=== PATIENT | female | born 1990 | race Caucasian/White ===

== ENCOUNTER 2016-11-27 09:40 | Emergency (ER) | payer MEDICAID ==
[~2016-11-27] VITALS: Ht 154.9 cm; Wt 49.9 kg
[~2016-11-27 09:40] MED LIST: ABILIFY10 MG; BACTRIM DS 8001 TA1 PO; CIPRO 500MG TA500 MG PO; CITALOPRAM HYDR40 MG PO; CLARITIN 10MG T10 MG PO; ESSENTIAL DAIL1 EACH PO; GABAPENTIN 400400 M1 PO; GRALISE600 M1 PO; HYDROCODONE-APA1 TA1 PO; HYDROCODONE1 TABLET PO; IRON TABLETS325 MG PO; MACROBID 100MG100 M1 PO; MOTRIN 400MG.400 MG PO; NAPROSYN 500MG500 MG PO; NOMEDS *; PERCOCET 5/3251 EACH PO; PHENERGAN 25MG.25 M1 PO; PRENATAL PLUS1 TA1 PO; PROZAC 20MG CAP20 MG PO; RANITIDINE HCL150 MG PO; ROBAXIN-750750 MG PO; TRAZADONE HYDR100 MG PO; TYLENOL ES500 M1 PO; TYLENOL ES500 MG PO; TYLENOL325 MG PO; VISTARIL25 MG PO; ZITHROMAX Z-PA250 M2 PO
[2016-11-27 10:02] LABS: URINE BILIRUBIN - DIPSTICK NEGATIVE (NEG); URINE BLOOD NEGATIVE (NEG)
--- NOTE | 2016-11-27 10:12 | Emergency Room Report ---
History of Present Illness Time Seen by MD Cope Presenting Problem in Triage Pt arrived:Walked Presenting Problem:PT REPORTS INTERMITTENT PAIN ON R SIDE OF UPPER ABD THAT BEGAN APPROX 1 WEEK AGO. PT REPORTS PAIN HAS BEEN ACHING AND CONSTANT IN NATURE SINCE WAKING UP THIS MORNING. 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 N Clinical Suspician of Infection? N Mental Status: 1 - Regular (Normal Baseline) Sepsis Risk:Low Sepsis Risk Have you (or family members/close friends) recently traveled outside the [place]? N If Yes, where/when: Have you had exposure to infectious disease within the past month? N TB? Other? Specify: Source patient, RN notes reviewed Exam Limitations no limitations Comment Intermittent RUQ and RLQ pain for about 1 week but worse over the past 24 hours. No fever. Achy pain with no UT symptoms andno nausea, vomiting or diarrhea. She is a who has had a BTL Cardiac Chest Pain Chest pain indicative of cardiac No ALLERGIES Coded Allergies: ENVIRONMENTAL ALLERGENS (Mild, TAPE-RASH 04/30/16) TAPE GIVES PATIENT A RASH Penicillins (04/30/16) butorphanol (From STADOL) (causes behavioral changes in pt 04/30/16) latex (04/30/16) Home Medications Reported Medications No Known Home Medications History Medical History General CAD? No Angina: No OR: No Hypertension? No Hyperlipidemia? No CHF? No DVT? No PE? No COPD? No Asthma? No Anemia? No GERD? No Gastric ulcers? No GI Bleed? No Hernia? No Thyroid Problems? No Hypothyroidism? No CVA? No Seizures? No Diabetes? No Insulin Dependent: No Insulin Pump: No Home FSBS? No Renal Insuffiency? No End Stage Renal Disease? No UTI? Yes Stones? No BPH? No GB Disease: No Nephritic Syndrome? No Asplenia? No Hepatitis? No Sickle Cell Disease? No Arthritis? No Migraines? No Cataracts? No Glaucoma? No MRSA? No HIV? No TB? No Anxiety? No Depression? No Cancer? No More? 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 Physical Exam Vital Signs Vital Signs Date Time Temp Pulse Resp B/P Pulse O2 O2 Flow FiO2 Ox Delivery Rate 11/27 1015 84 20 100/60 99 11/27 1012 20 11/27 0948 98.0 86 18 105/73 98 General Appearance normal appearance, WD/WN, no apparent distress Respiratory Status No: respiratory distress. 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 No Results/Orders Laboratory Tests 11/27/16 1005: Sodium 143, Potassium 4.3, Chloride 108 H, Carbon Dioxide 27, BUN 11, Creatinine 0.8, Estimated Creat Clear 85, Estimated GFR (MDRD) 88, Glucose 84, Calcium 8.5, Total Bilirubin 0.3, AST 8 L, ALT 15, Alkaline Phosphatase 72, Total Protein 6.9, Albumin 3.2 L, Globulin 3.7 H, Albumin/Globulin Ratio 0.9 L, Amylase 62, Lipase 117, WBC 10.7, RBC 4.05 L, Hgb 13.3, Hct 39.1, MCV 96.4, RDW 12.3, Plt Count 278, MPV 6.1 L, Gran % 73.8, Gran # 7.9 H, Lymphocytes % 17.6, Monocytes % 6.5, Eosinophils % 1.8, Basophils % 0.3, Lymphocytes # 1.9, Monocytes # 0.7, Eosinophils # 0.2, Basophils # 0.0, PUBS MCHC 34.1, MCH 32.8 H 11/27/16 0953: Urine Color YELLOW, Urine Appearance SL CLOUDY, Urine pH 6.0, Ur Specific [place] 1.025, Urine Protein NEGATIVE, Urine Ketones NEGATIVE, Urine Blood NEGATIVE, Urine Nitrate NEGATIVE, Urine Bilirubin NEGATIVE, Urine Urobilinogen 0.2, Ur Leukocyte Esterase 2+ H, Urine WBC 10-20, Ur Squamous Epith Cells 10-20 , Urine Bacteria 4+, Urine Mucus 4+, Urine Glucose NEGATIVE Current Medication Orders Sig/Kodak Start time Last Medication Dose Route Stop Time Status Admin Levofloxacin/Dextrose 100 ML ONCE ONE 11/27 1100 CKDr IV 11/27 1159 Levofloxacin/Dextrose 100 ML .STK-MED ONE 11/27 1050 DC IV Sodium Chloride 10 ML PRN PRN 11/27 1030 AC IV 11/28 1016 Ketorolac 30 MG ONCE ONE 11/27 1015 DC 11/27 Tromethamine IV 11/27 1016 1012 Ondansetron HCl 4 MG ONCE ONE 11/27 1015 DC 11/27 IV 11/27 1016 1012 Sodium Chloride 1,000 ML .Q1H1M 11/27 1015 AC 11/27 IV 11/27 1115 1012 Sodium Chloride 10 ML PRN PRN 11/27 1015 AC IV 11/28 1007 Sodium Chloride 1,000 ML .STK-MED ONE 11/27 1009 DC IV Ketorolac 0 .STK-MED ONE 11/27 1008 DC Tromethamine .ROUTE Ondansetron HCl 0 .STK-MED ONE 11/27 1008 DC .ROUTE Orders Procedure Date/time Status IV SALINE LOCK 11/27 1016 Active ABD ACUTE(MUL VIEWS) 11/27 1012 Active LIPASE 11/27 1012 Complete CBC WITH AUTO DIFF 11/27 1012 Complete CHEM 12 PROFILE 11/27 1012 Complete AMYLASE 11/27 1012 Complete URINALYSIS/COMPLETE 11/27 0954 Complete URINE 11/27 0954 Complete CULTURE, URINE 11/27 0953 Active Departure Departure Time of Disposition 1050 Disposition DC Home or Self Care(routine) Clinical Impression Primary Impression: Cystitis without hematuria Secondary Impressions: Abdominal pain Qualifiers: Abdominal location: right lower quadrant Qualified Code: R10.31 - Right lower quadrant pain Condition STABLE Referrals Espinoza Rayo MD (Family): 2 Days-Call Office Patient Instructions DI for Urinary Tract Infection (UTI) Additional Instructions Use medicine for Urinary tract infection but if abdominal pain not better this afternoon, return to the ED to get a CT to rule out appendicitis this afternoon Discharge Counseling Counseled pt/family regarding diagnosis, test results, medications/RX, home care, follow up needs Prescriptions Current Visit Scripts Ciprofloxacin HCl (Cipro 500MG TAB) 500 MG PO BID #20 TAB ED Critical Care Critical Care No If Critical Care minutes are documented, the time involved in the performance of seperately reportable procedures was not counted toward critical care time documented. I directly delivered medical care to this critically ill and/or injured patient. Timely evaluation and treatment was necessary to address the significant organ system(s) dysfunction present in this patient. at [id number]
[2016-11-27 10:18] LABS: HEMOGLOBIN 13.3 g/dL (12.2-16.2); LYMPH # 1.9 K/mm3 (0.7-4.5); LYMPH % 17.6 % (10-50.0)
[2016-11-27] MEDS ORDERED: CIPRO 500MG TA500 MG PO (10:53)
[2016-11-27 12:19] VITALS: BP 103/55
--- NOTE | 2016-11-27 17:44 | RADIOLOGY REPORT PS360 ---
ABD ACUTE(MUL VIEWS) Ordering Physician: Nini Magana MD Patient Age: 26 years: Female HISTORY: abdominal pain Right-sided abdominal pain chest to hip pain 1 week no known recent trauma. TECHNIQUE: Upright chest with flat and upright views of abdomen. FINDINGS Chest. No active disease. Heart jeff and mediastinal structures satisfactory.. Ribs unremarkable. Flat and upright views of abdomen demonstrate generous stool at the right colon. Prominent stool also is seen at the splenic flexure and proximal descending colon with generous gas transverse colon. Moderate stool in rectosigmoid. Findings may reflect mild constipation but no significant bowel dilatation or obstruction. Minimal small bowel gas. No organomegaly. Bilateral tubal ligation clips at pelvis. IMPRESSION: No acute findings in the abdomen or pelvis. Generous stool right colon and splenic flexure region reflect mild constipation
--- OUTSIDE RECORDS SUMMARY | 2016-11-28 04:15 | External Medical Summary Rpt ---
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 CARE/DAY SERV 25 FOUNDATIO MINUTES N SBSQ 08475 [place] [address] MEDICAL DANNIE CARE/DAY SERV 25 FOUNDATIO MINUTES N SBSQ 73700 [place] [address] MEDICAL LISSETTE CARE/DAY SERV 25 FOUNDATIO MINUTES N INITIAL 02441 [place] [address] MEDICAL DANNIE CARE/DAY SERV 70 FOUNDATIO MINUTES N SBSQ 24411 [place] [address] MEDICAL LISSETTE CARE/DAY SERV 25 FOUNDATIO MINUTES N DUP-SCAN 91193 [place] ENDEAN XTR VEINS 4 MEDICAL JERSON COMPLETE SERV FOUNDATIO BILATERAL N STUDY SBSQ 10519 [facility] 4 MEDICAL CHR CARE/DAY SERV 15 FOUNDATIO MINUTES N [address]BS[address]23 [facility] 4 MEDICAL CHR CARE/DAY SERV 15 FOUNDATIO MINUTES N RADEX 39083 [place] GERONIMO ABDOMEN 1 4 MEDICAL SCO SERV ANTEROPOS FOUNDATIO TERIOR N VIEW RADIOLOGI 48501 [place] MITCHELL C 4 MEDICAL MONICA EXAMINATI SERV ON CHEST FOUNDATIO SINGLE N VIEW FRONTAL SWALLOWIN 33230 [place] DISANTIS G FUNCJ 4 MEDICAL JOHN W/CINERAD SERV IOGRAPY/V FOUNDATIO IDRADIOG N RADIOLOGI 43343 [place] CASTALIA MADDY C 4 MEDICAL EXAMINATI SERV ON CHEST FOUNDATIO SINGLE N VIEW FRONTAL SBSQ 30385 [facility] 4 MEDICAL CHR CARE/DAY SERV 25 FOUNDATIO MINUTES N SBSQ 27819 [facility] 4 MEDICAL CARE/DAY SERV 25 FOUNDATIO MINUTES N RADEX 28317 [place] ALEIDA HAND 4 MEDICAL FRA MINIMUM 3 SERV VIEWS FOUNDATIO N SBSQ 67924 [facility] 4 MEDICAL CARE/DAY [place] [address] [place] [address] [place] HEBERT HEAD/BRAI 4 MEDICAL MADDY N W/O SERV CONTRAST FOUNDATIO MATERIAL N RADEX 42658 [place] SZABUNIO SPINE 4 MEDICAL MAR CERVICAL SERV 2 OR 3 FOUNDATIO VIEWS N RADIOLOGI 64873 [place] THIAGO SAYRA C 4 MEDICAL EXAMINATI SERV ON CHEST FOUNDATIO SINGLE N VIEW FRONTAL RADIOLOGI 51503 [facility] 4 MEDICAL AYA MAR EXAMINATI SERV ON CHEST FOUNDATIO SINGLE N VIEW FRONTAL SBSQ 37314 [facility] 4 MEDICAL CHR CARE/DAY SERV 25 FOUNDATIO MINUTES N RADIOLOGI 80558 [place] LINTON MADDY C 4 MEDICAL EXAMINATI SERV ON CHEST FOUNDATIO SINGLE N VIEW FRONTAL RADIOLOGI 80164 [place] MITCHELL C 4 MEDICAL MONICA EXAMINATI SERV ON CHEST [place] [address] [place] RASLAU CERVICAL 4 MEDICAL FLA SPINE W/O SERV CONTRAST FOUNDATIO MATERIAL N LEVEL III 25404 [facility] SURG 4 Y [facility] GROSS&MONICA ROSCOPIC EXAM ARTHRD 67914 [place] SMITH ANT 4 MEDICAL GRE INTERBODY SERV FOUNDATIO DECOMPRES N S CERVICAL BELW C2 ARTHRD 48899 [place] SMITH ANT 4 MEDICAL GRE INTERDY SERV CERVCL FOUNDATIO BELW C2 N EA ADDL NTRSPC ARTHRT 30726 [place] MANDIE KNE 4 MEDICAL BRETT W/EXPL SERV DRG/RMVL FOUNDATIO FB N ANESTHESI 56557 [place] LANDRUM A 4 MEDICAL DUN EXTENSIVE SERV SPINE & FOUNDATIO SPINAL N CORD ANTERIOR 79407 [place] [facility] INSTRUMEN 4 MEDICAL GRE TATION SERV 2-3 FOUNDATIO VERTEBRAL N SEGMENTS APPLICATI 95472 [place] SM[place] ON 4 MEDICAL GRE INTERVERT SERV EBRAL FOUNDATIO BIOMECHAN N ICAL DEVICE RADEX 88104 [place] SERENA SPINE 1 4 MEDICAL YFN VIEW SERV SPECIFY FOUNDATIO LEVEL N RADEX 12250 [place]O SPINE 1 4 MEDICAL ROGELIO VIEW SERV SPECIFY FOUNDATIO LEVEL N RADEX 97966 [place] MONTGOMER SPINE 1 4 MEDICAL Y JUS VIEW SERV SPECIFY FOUNDATIO LEVEL N SBSQ 33487 [facility] 4 MEDICAL ANT CARE/DAY SERV 35 FOUNDATIO MINUTES N RADEX 82383 [place] THIAGO SAYRA SPINE 4 MEDICAL CERVICAL SERV 2 OR 3 FOUNDATIO VIEWS N RADIOLOGI 80067 [place] MONTGOMER C 4 MEDICAL Y JUS EXAMINATI SERV ON KNEE [address] [place] [address] [place] AYOOB AND THORACIC 4 MEDICAL SPINE W/O SERV CONTRAST FOUNDATIO MATERIAL N RADIOLOGI 77331 [place] MONTGOMER C 4 MEDICAL Y JUS EXAMINATI SERV ON CHEST FOUNDATIO SINGLE N VIEW FRONTAL US CHEST 70929 [place] DONNIE REAL TIME 4 MEDICAL HERBIE W/IMAGE SERV DOCUMENTA FOUNDATIO TION N RADEX 39926 [place] MONTGOMER HAND 4 MEDICAL Y JUS MINIMUM 3 SERV VIEWS FOUNDATIO N RADIOLOGI 32952 [place] MONTGOMER C 4 MEDICAL Y JUS EXAMINATI SERV ON FEMUR FOUNDATIO 2 VIEWS N RADEX 01778 [place] MONTG[place] ANKLE 4 MEDICAL Y JUS COMPLETE SERV MINIMUM 3 FOUNDATIO VIEWS N RADEX 00709 [place] MONTGOMER FOOT 4 MEDICAL Y JUS COMPLETE SERV MINIMUM [address] LUMBAR 40528 [place] AYOOB AND SPINE 4 MEDICAL W/O SERV CONTRAST FOUNDATIO MATERIAL N MRI 86351 [place] FLORIN ELBERT SPINAL 4 MEDICAL CANAL SERV CERVICAL FOUNDATIO W/O N CONTRAST MATRL RADIOLOGI 63324 [place] MONTGOMER C 4 MEDICAL Y JUS EXAMINATI SERV ON PELVIS FOUNDATIO 1/2 N VIEWS RADIOLOGI 82960 [place] TERIGOMER C 4 MEDICAL Y JUS EXAMINATI SERV ON TIBIA FOUNDATIO & F[place] [address] [place] [address] [place] SULY ANGIOGRAP 4 MEDICAL MARIAH HY HEAD SERV W/CONTRAS [place]OUNDAT[place] [address] [place] AYOOB AND CERVICAL 4 MEDICAL SPINE W/O SERV CONTRAST FOUNDATIO MATERIAL N RADEX 93422 [place] TERIGOMER ELBOW 4 MEDICAL Y JUS COMPLETE SERV MINIMUM [address] [place] [address] [place] SULY ANGIOGRAP 4 MEDICAL MARIAH HY NECK SERV W/CONTRAS FOUNDAT[place] T/[place] [address] [place] AYOOB AND ANGIOGRAP 4 MEDICAL HY CHEST SERV W/CONTRAS FOUNDATIO T/NONCONT N RAST RADEX 45622 [place] KAELA HUMERUS 4 MEDICAL Y JUS MINIMUM 2 SERV VIEWS FOUNDATIO N RADEX 96815 [place] KAELA FOREARM 2 4 MEDICAL Y JUS VIEWS SERV FOUNDATIO N RADEX 37234 [place] MICKEYMER WRIST 4 MEDICAL Y JUS COMPLETE SERV MINIMUM 3 FOUNDATIO VIEWS N ECHO 49951 [place] DONNIE TRANSTHOR 4 MEDICAL HERBIE C R-T 2D SERV W/WO FOUNDATIO M-MODE N REC F-UP/[place] [address] [place] AYOOB AND ABDOMEN & 4 MEDICAL PELVIS SERV [place] [address] [place] DONNIE ABDOMINAL 4 MEDICAL HERBIE REAL SERV TIME FOUNDATIO W/IMAGE N LIMITED AMB [id number] AIR AIR SERVICE 4 METHODS METHODS CONVNTION [facility] AIR SRVC TRANSPORT [address] INITIAL 96825 [facility] 4 MEDICAL LISSETTE CARE/DAY SERV 70 FOUNDATIO MINUTES N REMOVAL 19570 MANJIT SARAVIA NON-BIODE 4 PILLO PILLO GRADABLE DRUG DELIVERY IMPLANT IADNA 36285 [facility]PT HL[facility] DEPT GONORRHOE LUPE LUPE AE AMPLIFIED PROBE TQ TDAP 25414 [facility] VACCINE 7 4 [facility] DISTRICT YRS/> IM HLTH DEPT HLTH DEPT LUPE LUPE CYTP 18971 [facility] CERV/VAG 4 [facility] AUTO THIN HLTH DEPT HLTH DEPT LAYER LUPE LUPE PREP MNL SCREEN IADNA 50188 [facility] CHLAMYDIA [facility] DEPT HLTH DEPT TRACHOMAT LUPE LUPE IS AMPLIFIED PROBE TQ CONTRACEP J7303 [facility] T SUPPLY 4 [facility] HORMONE HLTH DEPT HL DEPT CONTAININ LUPE LUPE G VAG RING EA IAADIADOO 32487 FIELD AMB FIELD AMB 4 STREPTOCO CCUS GROUP A INSJ 36827 MANJIT SARAVIA NON-BIODE 4 PILLO PILLO GRADABLE DRUG DELIVERY IMPLANT URINE 86988 MANJIT SARAVIA 4 PILLO PILLO TEST VISUAL COLOR CMPRSN METHS ETONOGEST J7307 MANJIT SARAVIA REL 4 PILLO PILLO CNTRACPT IMPL SYS INCL IMPL & SPL REPAIR OF 7569 [facility] OTHER 3 [facility] CURRENT INC INC OBSTETRIC LACERATIO N NEURAXIAL 59264 NIRMAL KINNEY LABOR 3 ELSA ELSA ANALG/ANE S PLND VAGINAL DELIVERY VAGINAL 00518 MANJIT SARAVIA DELIVERY 3 PILLO PILLO ONLY W/POSTPAR ALLAN CARE 17457 MANJIT SARAVIA NONSTRESS 3 PILLO PILLO TEST 41985 MANJIT SARAVIA NONSTRESS 3 PILLO PILLO TEST 77166 MANJIT SARAVIA NONSTRESS 3 PILLO PILLO TEST CUL BACT 06411 COMBINED COMBINED XCPT 3 PHYSICIAN PHYSICIAN URINE S LA S LA BLOOD/STO OL AEROBIC ISOL 52916 HARPEL HARPEL NONSTRESS 3 GREGOR GREGOR TEST 77264 MANJIT SARAVIA NONSTRESS 3 PILLO PILLO TEST INITIAL 29456 MANJIT SARAVIA OBSERVATI 3 PILLO PILLO ON CARE/DAY 70 MINUTES HOSPITAL G0378 [facility] OBSERVATI 3 [facility] ON INC INC SERVICE PER HOUR EVAL C/V 66861 [facility] AMNIOTIC 3 [facility] FLUID INC INC PROTEIN QUAL EA SPECIMEN FTL 29645 [facility] FIBRONECT 3 [facility] IN INC INC CERVICOVA G SECRETION S SEMI-MICHELE URNLS DIP 51744 [facility] 3 [facility] STICK/TAB INC INC LET REAGENT AUTO MICROSCOP Y 12623 [facility] S[facility] NONSTRESS 3 [place] [address] [facility] INFUSION 3 [facility] THERAPY/P INC INC ROPHYLAXI S /DX 1ST TO 1 HR INITIAL 64475 MANJIT SARAVIA OBSERVATI 3 PILLO PILLO ON CARE/DAY 50 MINUTES US PREG 53845 AWILDA AWILDA UTERUS 3 LUZ LUZ REAL TIME W/IMAGE DCMTN TRANSVAG 75259 SARAVIA SARAVIA NONSTRESS 3 PILLO PILLO TEST GLUCOSE 53941 [facility] TOLERANCE 3 [facility] TEST GTT INC INC 3 SPECIMENS URNLS DIP 38837 [facility] 3 [facility] STICK/TAB INC INC LET RGNT NON-AUTO W/O MICRSCP GLUCOSE 27707 [facility] TOLERANCE 3 [facility] EA ADDL INC INC BEYOND 3 SPECIMENS GLUCOSE 89297 [facility]OMEN'S [facility] TOLERANCE 3 HEALTH PILLO TEST GTT CLINIC OF 3 LISSETTE SPECIMENS 09667 WOMEN'S [facility]AV[facility] NONSTRESS 3 HEALTH PILLO TEST [place] 24250 MANJIT SARAVIA UTERUS 3 PILLO PILLO AFTER 1ST TRIMEST [place]STATION [place] PREG 20057 WOMEN'S SARAV[facility] UTERUS 3 HEALTH PILLO REAL TIME CLINIC OF W/IMAGE LISSETTE DCMTN TRANSVAG ANTIBODY 38684 COMBINED COMBINED CHLAMYDIA 3 PHYSICIAN PHYSICIAN S LA S LA CUL BACT 20980 COMBINED COMBINED XCPT 3 PHYSICIAN PHYSICIAN URINE S LA S LA BLOOD/STO OL AEROBIC ISOL URINE 89855 [facility] 3 [facility] TEST INC INC VISUAL COLOR CMPRSN METHS CULTURE 78793 [facility] BACTERIAL 3 [facility] INC INC QUANTTATI VE COLONY COUNT URINE CULTURE 78196 [facility] BCT 3 [facility] ISOL&PRSM INC INC PTV ID ISOLATE EA URINE URNLS DIP 08741 [facility] 3 [facility] STICK/TAB INC INC LET REAGENT AUTO MICROSCOP Y SUSCEPTIB 33568 [facility] LTY STDY 3 [facility] ANTIMICRB INC INC IAL MICRO/AGA R DILUTJ IAADIADOO 84402 MACK MACK 1 DON DON STREPTOCO CCUS GROUP A CONTRACEP S4993 [facility] TIVE 1 [facility] CONTROL TYMPANOME 75543 MEREDITH HARPER TRY 1 JACQUE JACQUE COMPRE 51125 MEREDITH HARPER AUDIOMETR 1 JACQUE JAC[place] [address] [facility] INFUSION 1 [facility] THERAPY INC INC PROPHYLAX IS/DX EA HOUR TONSILLEC 07266 CASTANEDA CASTANEDA JENNIFER 1 STALIN STALIN PRIMARY/S ECONDARY AGE 12/> LEVEL III 43858 [facility] [place] SURG 1 NANCI & ALEISHA PATHOLOGY DUBILIER GROSS&MONICA ROSCOPIC EXAM ANESTHESI 44451 [facility] 1 ANESTH INTRAORAL OF THE WITH BLUE BIOPSY NOS TONSILLEC 282 [facility] JENNIFER 1 [facility] WITHOUT INC INC ADENOIDEC JENNIFER GONADOTRO 16805 [facility] PIN 1 [facility] CHORIONIC INC INC QUALITATI VE BLOOD 64641 [facility] COUNT 1 [facility] HEMOGLOBI INC INC N BLOOD 04132 [facility] COUNT 1 [facility] HEMATOCRI INC INC T IAADIADOO 60348 MACK MACK 1 DON DON STREPTOCO CCUS GROUP A IAADIADOO 42255 MACK MACK 1 DON DON STREPTOCO CCUS GROUP A IADNA 86651 [facility] NEISSERIA 1 [facility] CENTER GONORRHOE AE AMPLIFIED PROBE TQ CONTRACEP S4993 [facility] TIVE 1 [facility] CONTROL URINE 64707 [facility] S[facility] 1 [facility] TEST CENTER CENTER VISUAL COLOR CMPRSN METHS IADNA 31220 [facility] CHLAMYDIA 1 [facility] C[facility] TRACHOMAT IS AMPLIFIED PROBE TQ SPHERE V2100 [facility] SCIF[facility] SINGLE 0 VISION ANG VISION PLANO +/- 4.00 PER LENS FITTING 51506 [facility] SPECTACLE 0 VISION ANG S XCPT APHAKIA MONOFOCAL FRAMES V2020 [facility] PURCHASES 0 VISION ANG OPHTH 15970 [facility] MEDICAL 0 VISION ANG XM&EVAL COMPRE NEW PT 1/> VST THER 60955 TRESSA BUSTILLOS PROPH/DX 0 ELMER ELMER NJX IV PUSH SINGLE/1S T SBST/DRUG DEEP D9220 TRESSA BUSTILLOS SEDATION/ 0 ELMER ELMER GENERAL ANESTHESI A-1ST 30 MINUTES ANESTHESI 77042 TRESSA BUSTILLOS A 0 ELMER ELMER EXTERNAL MIDDLE & INNER EAR W/BX NOS IAADIADOO 64904 FREDERICK MACK, 0 DON R DON R STREPTOCO CCUS GROUP A DEEP D9220 TRESSA BUSTILLOS SEDATION/ 0 , JUAN MARTINEZ W W ANESTHESI A-1ST 30 MINUTES THER 91066 TRESSA BUSTILLOS PROPH/DX 0 , JUAN MARTINEZX IV W W PUSH SINGLE/1S T SBST/DRUG ORTHOPANT 94855 TRESSA BUSTILLOS OGRAM 0 , JUAN MARTINEZ W CONTRACEP S4993 [facility] PORRASON TIVE 0 [facility] CONTROL REPAIR OB 75.69 Matt Price NEC Encounters Encounter Start End Date Code Location Performer Type Date OFFICE 10847 Christine PAZ OUTPATIEN 7 7 NARESH DOMÍNGUEZ T VISIT PSC 15 MINUTES EMERGENCY 31182 [facility] V[facility] LIMITED/M INOR [facility] - 6 6 [facility] OUTPATIEN INC T EMERGENCY 45240 MARCUS PEÑA 6 6 PHYSICIAN [facility] V[facility]IT MODERATE SEVERITY OFFICE 11553 [facility] CASTANEDA OUTPATIEN 6 6 PHYSICIAN STALIN T VISIT S GROUP 10 MINUTES OFFICE 79561 [facility] CASTANEDA OUTPATIEN 6 6 PHYSICIAN STALIN T NEW 10 S GROUP MINUTES HOSPITAL [facility] - 6 6 [facility] OUTPATIEN [facility] T EMERGENCY 02859 MARCUS LAZO 6 6 [facility]YSICIAN [facility] T VISIT MODERATE SEVERITY EMERGENCY 64679 [facility] 6 6 [facility] T VISIT LOW/MODER SEVERITY HOSPITAL [facility] - 6 6 [facility] INPATIENT [facility] HOSPITAL [facility] - 6 6 [facility] OUTPATIEN INC T OFFICE 43331 [facility] SARAVIA OUTPATIEN 6 6 PHYSICIAN T VISIT S GROUP 15 MINUTES OFFICE 65975 [facility] SARAVIA OUTPATIEN 6 6 PHYSICIAN T VISIT S GROUP 15 MINUTES OFFICE 54206 [facility] SARAVIA OUTPATIEN 6 6 PHYSICIAN PILLO T VISIT S GROUP 15 MINUTES HOSPITAL [facility] - 6 6 [facility] OUTPATIEN INC T [facility]OSP[facility] - 6 6 [facility] OUTPATIEN INC [facility] - 6 6 [facility] OUTPATIEN INC [facility] - 6 6 [facility] OUTPATIEN INC T OFFICE 99945 [facility] SARAVIA OUTPATIEN 6 6 PHYSICIAN PILLO T VISIT S GROUP 15 MINUTES HOSPITAL [facility] - 6 6 [facility] OUTPATIEN INC T OFFICE 29234 [facility] SARAVIA OUTPATIEN 6 6 PHYSICIAN PILLO T VISIT S GROUP 15 MINUTES HOSPITAL [facility] - 5 5 [facility] OUTPATIEN INC T OFFICE 00041 A Vega PAZ MADDY OUTPATIEN 5 5 NARESH DOMÍNGUEZ T VISIT PSC 15 MINUTES [facility]OSPITAL [facility] - 5 5 [facility] OUTPATIEN INC T [facility] - 5 5 [facility] OUTPATIEN INC T OFFICE 23442 [facility] MANJIT OUTPATIEN 5 5 PHYSICIAN PILLO T VISIT S GROUP 15 MINUTES OFFICE 52973 A Vega CASTAÑEDA OUTPATIEN 5 5 NARESH DOMÍNGUEZ T VISIT PSC 15 MINUTES [facility] LUTHER - 5 5 [facility] OUTPATIEN INC T OFFICE 63410 [facility] SARAVIA OUTPATIEN 5 5 PHYSICIAN PILLO T VISIT S GROUP 15 MINUTES OFFICE 45947 A Vega CASTAÑEDA OUTPATIEN 5 5 NARESH DOMÍGNUEZ T VISIT PSC 15 MINUTES [facility]OSPITAL [facility] - 5 5 [facility] OUTPATIEN INC T OFFICE 41777 A Vega CASTAÑEDA OUTPATIEN 5 5 NARESH DOMÍNGUEZ T VISIT PSC 15 MINUTES EMERGENCY 19781 MARCUS TRINIDAD 5 5 PHYSICIAN DEPARTMEN S, [facility] T VISIT MODERATE SEVERITY OFFICE 47311 [facility] MANJIT FENTONPATIEN 5 5 PHYSICIAN PILLO T VISIT S GROUP 15 MINUTES OFFICE 88434 A Vega CASTAÑEDA OUTPATIEN 5 5 NARESH DOMÍNGUEZ T VISIT PSC 15 MINUTES OFFICE 61702 A Vega CASTAÑEDA OUTPATIEN 5 5 NARESH DOMÍNGUEZ T VISIT PSC 15 MINUTES [facility]OSPITAL [facility] - 5 5 [facility] OUTPATIEN INC T OFFICE 42197 A Vega PAZ MADDY OUTPATIEN 5 5 NARESH DOMÍNGUEZ T VISIT PSC 15 MINUTES OFFICE 31569 A Vega PAZ MADDY OUTPATIEN 5 5 NARESH DOMÍNGUEZ T VISIT PSC 15 MINUTES OFFICE 32656 A Vega PAZ MADDY OUTPATIEN 5 5 NARESH DOMÍNGUEZ T VISIT PSC 15 MINUTES OFFICE 24517 [facility] PETTEY OUTPATIEN 5 5 PHYSICIAN KRYSTA T NEW 30 S GROUP MINUTES OFFICE 40684 A Vega PAZ MADDY OUTPATIEN 5 5 NARESH DOMÍNGUEZ T VISIT PSC 15 MINUTES OFFICE 86735 A Vega DA SILVA OUTPATIEN 5 5 NARESH EVANS T VISIT PSC 15 MINUTES OFFICE 50760 A Vega PAZ MADDY OUTPATIEN 5 5 NARESH DOMÍNGUEZ T VISIT PSC 15 MINUTES OFFICE 58245 A Vega PAZ MADDY OUTPATIEN 5 5 NARESH DOMÍNGUEZ T VISIT PSC 15 MINUTES OFFICE 26057 A Vega PAZ MADDY OUTPATIEN 5 5 NARESH DOMÍNGUEZ T VISIT PSC 15 MINUTES OFFICE 92555 [facility] OUTPATIEN 5 5 Y T VISIT 5 HOSPITAL MINUTES [facility] 81425 [facility] MIKY OUTPATIEN 5 5 NURSE T VISIT PRACTITIO 40 NER GR MINUTES HOSPITAL [facility] - 5 5 [facility] OUTPATIEN INC T OFFICE 42174 A Vega PAZ MADDY OUTPATIEN 5 5 NARESH DOMÍNGUEZ T VISIT PSC 25 MINUTES HOSPITAL [facility] - 5 5 [facility] OUTPATIEN [facility] T OFFICE 81913 A Vega PAZ MADDY OUTPATIEN 5 5 NARESH DOMÍNGUEZ T VISIT PSC 15 MINUTES [facility] T VISIT SERV 15 FOUNDATIO MINUTES N OFFICE 82269 [facility] Y T VISIT 5 HOSPITAL MINUTES OFFICE 61821 [facility] [facility] 5 MEDICAL BRETT T VISIT SERV 15 FOUNDATIO MINUTES N HOSPITAL [facility]ERSIT [facility] 5 5 [facility] 93334 [facility] 5 5 Y T VISIT 5 HOSPITAL MINUTES EMERGENCY 42252 UNIVERSIT 5 5 Y [facility] T VISIT HIGH/URGE NT SEVERITY [facility]OSPITAL [facility] - [facility] 98802 NOHEMI MOHAMUD NICOLAS 5 5 MEDICAL DEPARTMEN SERV T VISIT FOUNDATIO MODERATE N SEVERITY HOSPITAL [facility] - [facility] 28996 [facility] MEDICAL SRI T VISIT SERV 15 FOUNDATIO MINUTES N OFFICE 42260 Christine PAZ [facility] 5 5 NARESH DOM[facility]NG[facility]Z T [facility]IT [facility] 15 [facility] UNIVERSIT [facility] 4 4 Y [facility] T OFFICE 60001 [facility] 4 4 Y T VISIT [facility] 15 [facility] CARDINAL - 4 4 [facility] EMERGENC[facility] 21104 NOHEMI DONNIE DEPT 4 4 MEDICAL HERBIE VISIT SERV HIGH FOUNDATIO SEVERITY& N THREAT FUNCJ OFFICE 45673 [facility]IS[facility] DEPT [facility] DEPT 10 LUPE LUPE MINUTES OFFICE 71257 MANJIT SARAVIA CONSULTAT 4 4 P[place]O PILLO ION NEW/ESTAB PATIENT 40 MIN PERIODIC 05227 [facility] EST HLTH DEPT HLTH DEPT PATIENT LUPE LUPE 18-39 YRS OFFICE 31086 FIELD AMB FIELD AMB OUTPATIEN 4 4 T VISIT 15 MINUTES OFFICE 22298 FIELD AMB FIELD AMB OUTPATIEN 4 4 T VISIT 15 MINUTES OFFICE 61243 MANJIT SARAVIA OUTPATIEN 4 4 PILLO PILLO T VISIT 15 MINUTES Inpatient IMP Luther Recinos MD (IN) 3 16:31 3 13:00 [facility] - 3 3 [facility] INPATIENT INC OFFICE 42848 MANJIT SARAVIA OUTPATIEN 3 3 PILLO PILLO T VISIT 15 MINUTES OFFICE 36266 [facility] SARAVIA OUTPATIEN 3 3 PILLO PILLO T VISIT 15 MINUTES OFFICE 15606 [facility] SARAVIA OUTPATIEN 3 3 P[place] P[place] T VISIT 15 MINUTES [facility]PITAL [facility] - 3 3 [facility] OUT[facility] INC T OFFICE 13935 [facility]AVIA SARAVIA OUTPATIEN 3 3 PILLO PILLO T VISIT 15 MINUTES OFFICE 70187 MANJIT GREYE OUTPATIEN 3 3 PILLO PILLO T VISIT 15 MINUTES OFFICE 95116 BONITA RECINOS OUTPATIEN 3 3 GREGOR GREGOR T VISIT 15 MINUTES OFFICE 43603 MANJIT GREYE OUTPATIEN 3 3 PILLO PILLO T VISIT 15 MINUTES Inpatient IMP Luther Saravia MD (IN) 3 07:45 3 09:31 [facility]HER - 3 3 [facility] OUTPATIEN INC T OFFICE 69556 MANJIT SARAVIA OUTPATIEN 3 3 PILLO PILLO T VISIT 15 MINUTES OFFICE 85566 MANJIT SARAVIA OUTPATIEN 3 3 PILLO PILLO T VISIT 15 MINUTES OFFICE 53728 FIELD AMB FIELD AMB OUTPATIEN 3 3 T VISIT 15 MINUTES OFFICE 56921 SARAVIA SARAVIA OUTPATIEN 3 3 PILLO PILLO T VISIT 15 MINUTES [facility]OSPITAL [facility] - 3 3 [facility] OUTPATIEN INC T OFFICE 71504 [facility] 3 3 HEALTH PILL[facility] T VISIT 5 CLINIC OF MINUTES [place] OFFICE 62452 FIELD AMB FIELD AMB OUTPATIEN 3 3 T VISIT 15 MINUTES OFFICE 90944 SARAVIA SARAVIA OUTPATIEN 3 3 PILLO PILLO T VISIT 15 MINUTES OFFICE 64085 SARAVIA SARAVIA OUTPATIEN 3 3 P[place] PILL[place] T VISIT 15 MINUTES OFFICE 97155 SARAVIA SARAVIA OUTPATIEN 3 3 P[facility] PILLO T VISIT 15 MINUTES OFFICE 31651 [facility] OUTPATIEN 3 3 HEALTH PILLO T VISIT CLINIC OF 15 [place]TE MINUTES Emergency DESIRAE STOUT (ER) 3 13:27 3 13:34 [facility] A EMERGENCY 28323 [place]AN STOUT 3 3 EMERGENCY JAM DEPARTMEN SERVICES T VISIT HIGH/URGE NT SEVERITY EMERGENCY 70429 [facility] 3 3 [facility] T VISIT LOW/MODER SEVERITY HOSPITAL [facility] - 3 3 [facility] OUTPATIEN INC T OFFICE 89754 [facility] OUTPATIEN 1 1 DON DON T VISIT 15 MINUTES OFFICE [id number] [facility] OUT[facility] 1 1 DON DON T VISIT 15 MINUTES OFFICE 73556 [facility] OUTALEAHEN 1 1 [facility] CENTER 10 MINUTES OFFICE 53772 [facility] OUT[facility]IEN 1 1 DON DON T VISIT 15 MINUTES EMERGENCY 16791 [facility] 1 1 [facility] T VISIT LOW/MODER SEVERITY [facility] - [facility] T EMERGENCY [id number] [place] 1 1 EMERGENC[facility] DEPARTMEN SERVICES T VISIT HIGH/URGE NT SEVERITY [facility]OSP[facility] - 1 1 [facility] - [facility] 1 [facility] T OFFICE 85468 LEONEL CASTANEDA OUTPATIEN 1 1 STAL[facility] MILAN 45 MINUTES OFFICE 20877 [facility] MACK OUTPATIEN 1 1 DON DON T VISIT 15 MINUTES OFFICE 88710 [facility] MACK OUTPATIEN 1 1 DON DON T VISIT 15 MINUTES FORMERLY [facility] [address] [facility] SLOAN PREVENTIV 1 1 [facility] CENTER PATIENT 12-17YRS OFFICE 16835 FREDERICK MACK, OUTPATIEN 0 0 DON R DON R T VISIT 15 MINUTES OFFICE 41386 FR[facility] MACK, OUTPATIEN 0 0 DON R DON R T VISIT 15 MINUTES OFFICE [id number] TRESSA BUSTILLOS OUTPATIEN 0 0 , JUAN MARTINEZ 10 W W MINUTES OFFICE 73840 [facility] MACK, OUTPATIEN 0 0 DON R DON R T VISIT 15 MINUTES OFFICE 25828 [facility] OUTPATIEN 0 0 [facility] C[facility] 10 MINUTES
--- OUTSIDE RECORDS SUMMARY | 2016-11-28 04:15 | External Medical Summary Rpt ---
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 VIEWS SBSQ 81263 [place] [address] MEDICAL JERSON CARE/DAY SERV 25 FOUNDATIO MINUTES N SBSQ 92488 [place] [address] MEDICAL JERSON CARE/DAY SERV 25 FOUNDATIO MINUTES N SBSQ 66469 [place] [address] MEDICAL NAN CARE/DAY SERV 25 FOUNDATIO MINUTES N SBSQ 27263 [place] [address] MEDICAL NAN CARE/DAY SERV 25 FOUNDATIO MINUTES N RADIOLOGI 56810 [facility] RADMANESH C 4 RADIOLOGY SHA EXAMINATI ON KNEE 1/2 VIEWS RADEX 39334 [facility] SPINE 4 RADIOLOGY III LOLIS CERVICAL 2 OR 3 VIEWS SBSQ 68453 [place] [address] MEDICAL JERSON CARE/DAY SERV 25 FOUNDATIO MINUTES N RADEX 16776 [facility] 4 MEDICAL Y JUS MINIMUM 3 SERV VIEWS FOUNDATIO N SBSQ 15[address] [facility] 4 MEDICAL ZANE CARE/DAY SERV 25 FOUNDATIO MINUTES N SBSQ 69509 [place] [address] MEDICAL AZNE CARE/DAY SERV 25 FOUNDATIO MINUTES N SBSQ 23053 [place] [address] MEDICAL NAN CARE/DAY SERV 25 FOUNDATIO MINUTES N SBSQ 51897 [facility] 4 MEDICAL NAN CARE/DAY SERV 25 FOUNDATIO MINUTES N SWALLOWIN 91876 [facility] [place] [facility] FUNCJ 4 RADIOLOGY LD IV ALL W/CINERAD IOGRAPY/V IDRADIOG SBSQ 92850 [place] [address] MEDICAL DANNIE CARE/DAY SERV 25 FOUNDATIO MINUTES N SBSQ 82274 [place] [address] MEDICAL DANNIE CARE/DAY SERV 25 FOUNDATIO MINUTES N SBSQ 45252 [place] [address] MEDICAL DANNIE CARE/DAY SERV 25 FOUNDATIO MINUTES N SBSQ 16318 [place] [address] MEDICAL DANNIE CARE/DAY SERV 25 FOUNDATIO MINUTES N SBSQ 84774 [place] [address] MEDICAL DANNIE CARE/DAY SERV 25 FOUNDATIO MINUTES N SBSQ 81823 [place] [address] MEDICAL DANNIE CARE/DAY SERV 25 FOUNDATIO MINUTES N SBSQ 30494 [place] [address] MEDICAL LISSETTE CARE/DAY SERV 25 FOUNDATIO MINUTES N INITIAL 73878 [place] [address] MEDICAL DANNIE CARE/DAY SERV 70 FOUNDATIO MINUTES N SBSQ 23575 [place] [address] MEDICAL LISSETTE CARE/DAY SERV 25 FOUNDATIO MINUTES N DUP-SCAN 52555 [place] ENDEAN XTR VEINS 4 MEDICAL JERSON COMPLETE SERV FOUNDATIO BILATERAL N STUDY SBSQ 77647 [facility] 4 MEDICAL CHR CARE/DAY SERV 15 FOUNDATIO MINUTES N SBSQ 25925 [facility] 4 MEDICAL CHR CARE/DAY SERV 15 FOUNDATIO MINUTES N RADEX 28025 [place] GERONIMO ABDOMEN 1 4 MEDICAL SCO SERV ANTEROPOS FOUNDATIO TERIOR N VIEW RADIOLOGI 50127 [place] MITCHELL C 4 MEDICAL MONICA EXAMINATI SERV ON CHEST FOUNDATIO SINGLE N VIEW FRONTAL SWALLOWIN 50973 [place] DISANTIS G FUNCJ 4 MEDICAL JOHN W/CINERAD SERV IOGRAPY/V FOUNDATIO IDRADIOG N RADIOLOGI 05408 [place] IRVING MADDY C 4 MEDICAL EXAMINATI SERV ON CHEST FOUNDATIO SINGLE N VIEW FRONTAL SBSQ 16788 [facility] 4 MEDICAL CHR CARE/DAY SERV 25 FOUNDATIO MINUTES N SBSQ 81660 [facility] 4 MEDICAL CARE/DAY SERV 25 FOUNDATIO MINUTES N RADEX 22244 [place] ALEIDA HAND 4 MEDICAL FRA MINIMUM 3 SERV VIEWS FOUNDATIO N SBSQ 69656 [facility] 4 MEDICAL CARE/DAY [place] [address] [place] [address] [place] HEBERT HEAD/BRAI 4 MEDICAL MADDY N W/O SERV CONTRAST FOUNDATIO MATERIAL N RADEX 83001 [place] SZABUNIO SPINE 4 MEDICAL MAR CERVICAL SERV 2 OR 3 FOUNDATIO VIEWS N RADIOLOGI 96232 [place] THIAGO SAYRA C 4 MEDICAL EXAMINATI SERV ON CHEST FOUNDATIO SINGLE N VIEW FRONTAL RADIOLOGI 83065 [place] [facility] 4 MEDICAL AYA MAR EXAMINATI SERV ON CHEST FOUNDATIO SINGLE N VIEW FRONTAL SBSQ 94919 [facility] 4 MEDICAL CHR CARE/DAY SERV 25 FOUNDATIO MINUTES N RADIOLOGI 53998 [place] LINTON MADDY C 4 MEDICAL EXAMINATI SERV ON CHEST FOUNDATIO SINGLE N VIEW FRONTAL RADIOLOGI 08246 [place] IMTCHELL C 4 MEDICAL MONICA EXAMINATI SERV ON CHE[place] [address] [place] RASLAU CERVICAL 4 MEDICAL FLA SPINE W/O SERV CONTRAST FOUNDATIO MATERIAL N LEVEL III 32997 [facility] SUR[facility] 4 Y OF JUL PATHOLOGY [facility] GROSS&MONICA ROSCOPIC EXAM ARTHRD 72719 [place] SMITH ANT 4 MEDICAL GRE INTERBODY SERV FOUNDATIO DECOMPRES N S CERVICAL BELW C2 ARTHRD 65404 [place] SMITH ANT 4 MEDICAL GRE INTERDY SERV CERVCL FOUNDATIO BELW C2 N EA ADDL NTRSPC ARTHRT 55218 [place] MANDIE KNE 4 MEDICAL BRETT W/EXPL SERV DRG/RMVL FOUNDATIO FB N ANESTHESI 82648 [place] LANDRUM A 4 MEDICAL DUN EXTENSIVE SERV SPINE & FOUNDATIO SPINAL N CORD ANTERIOR 21438 [place] SMITH INSTRUMEN 4 MEDICAL GRE TATION SERV 2-3 FOUNDATIO VERTEBRAL N SEGMENTS APPLICATI 23418 [place] SMITH ON 4 MEDICAL GRE INTERVERT SERV EBRAL FOUNDATIO BIOMECHAN N ICAL DEVICE RADEX 88337 [place] SERENA SPINE 1 4 MEDICAL YFN VIEW SERV SPECIFY FOUNDATIO LEVEL N RADEX 15066 [place] CHAYO SPINE 1 4 MEDICAL ROGELIO VIEW SERV SPECIFY FOUNDATIO LEVEL N RADEX 29765 [place] MONTGOMER SPINE 1 4 MEDICAL Y JUS VIEW SERV SPECIFY FOUNDATIO LEVEL N SBSQ 47450 [place] [facility] 4 MEDICAL ANT CARE/DAY SERV 35 FOUNDATIO MINUTES N RADEX 43266 [place] THIAGO SAYRA SPINE 4 MEDICAL CERVICAL SERV 2 OR 3 FOUNDATIO VIEWS N RADIOLOGI 60845 [place] MONTGOMER C 4 MEDICAL Y JUS EXAMINATI SERV ON KNEE [address] [place] [address] [place] AYOOB AND THORACIC 4 MEDICAL SPINE W/O SERV CONTRAST FOUNDATIO MATERIAL N RADIOLOGI 68628 [place] MONTGOMER C 4 MEDICAL Y JUS EXAMINATI SERV ON CHEST FOUNDATIO SINGLE N VIEW FRONTAL US CHEST 62234 [place] DONNIE REAL TIME 4 MEDICAL HERBIE W/IMAGE SERV DOCUMENTA FOUNDATIO TION N RADEX 83059 [place] MONTGOMER HAND 4 MEDICAL Y JUS MINIMUM 3 SERV VIEWS FOUNDATIO N RADIOLOGI 68780 [place] MONTGOMER C 4 MEDICAL Y JUS EXAMINATI SERV ON FEMUR FOUNDATIO 2 VIEWS N RADEX 17570 [place] MONTGOMER ANKLE 4 MEDICAL Y JUS COMPLETE SERV MINIMUM 3 FOUNDATIO VIEWS N RADEX 25918 [place] MONTGOMER FOOT 4 MEDICAL Y JUS COMPLETE SERV MINIMUM [address] LUMBAR 58554 [place] AYOOB AND SPINE 4 MEDICAL W/O SERV CONTRAST FOUNDATIO MATERIAL N MRI 65022 [place] FLORIN ELBERT SPINAL 4 MEDICAL CANAL SERV CERVICAL FOUNDATIO W/O N CONTRAST MATRL RADIOLOGI 74477 [place] MONTGOMER C 4 MEDICAL Y JUS EXAMINATI SERV ON PELVIS FOUNDATIO 1/2 N VIEWS RADIOLOGI 97894 [place] TERIGOMER C 4 MEDICAL Y JUS EXAMINATI SERV ON TIBIA FOUNDATIO & F[place] [address] [place] [address] [place] SULY ANGIOGRAP 4 MEDICAL MARIAH HY HEAD SERV W/CONTRAS FOUNDATIO T/[place] [address] [place] AYOOB AND CERVICAL 4 MEDICAL SPINE W/O SERV CONTRAST FOUNDATIO MATERIAL N RADEX 45614 [place] TERIGOMER ELBOW 4 MEDICAL Y JUS COMPLETE SERV MINIMUM [address] [place] [address] [place] SULY ANGIOGRAP 4 MEDICAL MARIAH HY NECK SERV W/CONTRAS FOUNDAT[place] T/[place] [address] [place] AYOOB AND ANGIOGRAP 4 MEDICAL HY CHEST SERV W/CONTRAS FOUNDATIO T/NONCONT N RAST RADEX 81091 [place] KAELA HUMERUS 4 MEDICAL Y JUS MINIMUM 2 SERV VIEWS FOUNDATIO N RADEX 09899 [place] KAELA FOREARM 2 4 MEDICAL Y JUS VIEWS SERV FOUNDATIO N RADEX 19803 [place] MICKEYMER WRIST 4 MEDICAL Y JUS COMPLETE SERV MINIMUM 3 FOUNDATIO VIEWS N ECHO 91640 [place] DONNIE TRANSTHOR 4 MEDICAL HERBIE C R-T 2D SERV W/WO FOUNDATIO M-MODE N REC F-UP/[place] [address] [place] AYOOB AND ABDOMEN & 4 MEDICAL PELVIS SERV [place] [address] [place] DONNIE ABDOMINAL 4 MEDICAL HERBIE REAL SERV TIME FOUNDATIO W/IMAGE N LIMITED AMB A0431 AIR AIR SERVICE 4 METHODS METHODS [facility]ION [facility] SRVC TRANSPORT [address] INITIAL 65001 [facility] 4 MEDICAL LISSETTE CARE/DAY SERV 70 FOUNDATIO MINUTES N REMOVAL 32277 MANJIT SARAVIA NON-BIODE 4 PILLO PILLO GRADABLE DRUG DELIVERY IMPLANT IADNA 35407 [facility] DE[facility] DEPT GONORRHOE LUPE LUPE AE AMPLIFIED PROBE TQ TDAP 89947 [facility] VACCINE 7 4 [facility] DISTRICT YRS/> IM HLTH DEPT HLTH DEPT LUPE LPUE CYTP 63224 [facility] CERV/VAG 4 [facility] AUTO THIN HLTH DEPT HLTH DEPT LAYER LUPE LUPE PREP MNL SCREEN IADNA 62835 [facility] CHLAMYDIA [facility] DEPT HLTH DEPT TRACHOMAT LUPE LUPE IS AMPLIFIED PROBE TQ CONTRACEP J7303 [facility] T SUPPLY 4 [facility] DISTRICT HORMONE HLTH DEPT HL DEPT CONTAININ LUPE LUPE G VAG RING EA IAADIADOO 92862 FIELD AMB FIELD AMB 4 STREPTOCO CCUS GROUP A INSJ 96888 MANJIT SARAVIA NON-BIODE 4 PILLO PILLO GRADABLE DRUG DELIVERY IMPLANT URINE 01489 MANJIT SARAVIA 4 PILLO PILLO TEST VISUAL COLOR CMPRSN METHS ETONOGEST J7307 MANJIT SARAVIA REL 4 PILLO PILLO CNTRACPT IMPL SYS INCL IMPL & SPL REPAIR OF 7569 [facility] OTHER 3 [facility] CURRENT INC INC OBSTETRIC LACERATIO N NEURAXIAL 62282 NIRMAL KINNEY LABOR 3 ELSA ELSA ANALG/ANE S PLND VAGINAL DELIVERY VAGINAL 58003 MANJIT SAR[facility]IA DELIVERY 3 PILLO PILLO ONLY W/POSTPAR ALLAN CARE 71659 MANJIT SARAVIA NONSTRESS 3 PILLO PILLO TEST 54217 MANJIT SARAVIA NONSTRESS 3 PILLO PILLO TEST 92604 MANJIT SARAVIA NONSTRESS 3 PILLO PILLO TEST CUL BACT 15921 COMBINED COMBINED XCPT 3 PHYSICIAN PHYSICIAN URINE S LA S LA BLOOD/STO OL AEROBIC ISOL 00276 HARPEL HARPEL NONSTRESS 3 GREGOR GREGOR TEST 20041 MANJIT SARAVIA NONSTRESS 3 PILLO PILLO TEST INITIAL 04222 MANJIT SARAVIA OBSERVATI 3 PILLO PILLO ON CARE/DAY 70 MINUTES HOSPITAL [id number] [facility] OBSERVATI 3 [facility] ON INC INC SERVICE PER HOUR EVAL C/V 43892 [facility] AMNIOTIC 3 [facility] FLUID INC INC PROTEIN QUAL EA SPECIMEN FTL 62294 [facility] FIBRONECT 3 [facility] IN INC INC CERVICOVA G SECRETION S SEMI-MICHELE URNLS DIP 68264 [facility] 3 [facility] STICK/TAB INC INC [place]CROS[place] Y 03350 [facility] S[facility] NONSTRESS 3 [place] [address] [facility] INFUSION 3 [facility] THERAPY/P INC INC ROPHYLAXI S /DX 1ST TO 1 HR INITIAL 36466 MANJIT SARAVIA OBSERVATI 3 PILLO PILLO ON CARE/DAY 50 MINUTES US PREG 74441 AWILDA AWILDA UTERUS 3 LUZ LUZ REAL TIME W/IMAGE DCMTN TRANSVAG 38381 SARAVIA SARAVIA NONSTRESS 3 PILLO PILLO TEST GLUCOSE 37771 [facility] TOLERANCE 3 [facility] TEST GTT INC INC 3 SPECIMENS URNLS DIP 28939 [facility] 3 [facility] STICK/TAB INC INC LET RGNT NON-AUTO W/O MICRSCP GLUCOSE 90966 [facility] TOLERANCE 3 [facility] EA ADDL INC INC BEYOND 3 SPECIMENS GLUCOSE 94786 [facility] TOLERANCE 3 HEALTH PILLO TEST GTT CLINIC OF 3 LISSETTE SPECIMENS 06621 [facility]EN'[facility] NONSTRESS 3 HEALTH PILLO TEST CLINIC OF LISSETTE [place] PREG 13523 MANJIT SARAVIA UTERUS 3 PILLO PILLO AFTER 1ST TRIMEST GESTATION US PREG 81152 WOMEN'S SAR[facility] UTERUS 3 HEALTH PILLO REAL TIME CLINIC OF W/IMAGE LISSETTE DCMTN TRANSVAG ANTIBODY 32457 COMBINED COMBINED CHLAMYDIA 3 PHYSICIAN PHYSICIAN S LA S LA CUL BACT 21061 COMBINED COMBINED XCPT 3 PHYSICIAN PHYSICIAN URINE S LA S LA BLOOD/STO OL AEROBIC ISOL URINE 80026 [facility] 3 [facility] TEST INC INC VISUAL COLOR CMPRSN METHS CULTURE 08411 [facility] BACTERIAL 3 [facility] INC INC QUANTTATI VE COLONY COUNT URINE CULTURE 30823 [facility] BCT 3 [facility] ISOL&PRSM INC INC PTV ID ISOLATE EA URINE URNLS DIP 20638 [facility] 3 [facility] STICK/TAB INC INC LET REAGENT AUTO MICROSCOP Y SUSCEPTIB 95444 [facility] LTY STDY 3 [facility] ANTIMICRB INC INC IAL MICRO/AGA R DILUTJ IAADIADOO 07848 MACK MACK 1 DON DON STREPTOCO CCUS GROUP A CONTRACEP S4993 [facility] TIVE 1 [facility] CONTROL TYMPANOME 06432 MEREDITH HARPER TRY 1 JACQUE JACQUE COMPRE 19003 MEREDITH HARPER AUDIOMETR 1 JACQUE JAC[place] [address] [facility] INFUSION 1 [facility] THERAPY INC INC PROPHYLAX IS/DX EA HOUR TONSILLEC 57215 CASTANEDA CASTANEDA JENNIFER 1 STALIN STALIN PRIMARY/S ECONDARY AGE 12/> LEVEL III 95454 [place] SURG 1 NANCI & ALEISHA PATHOLOGY DUBILIER GROSS&MONICA ROSCOPIC EXAM ANESTHESI 26183 [facility] 1 ANESTH INTRAORAL OF THE WITH BLUE BIOPSY NOS TONSILLEC 282 [facility] JENNIFER 1 [facility] WITHOUT INC INC ADENOIDEC JENNIFER GONADOTRO 90342 [facility] PIN 1 [facility] CHORIONIC INC INC QUALITATI VE BLOOD 99223 [facility] COUNT 1 [facility] HEMOGLOBI INC INC N BLOOD 42786 [facility] COUNT 1 [facility] HEMATOCRI INC INC T IAADIADOO 89029 MACK MACK 1 DON DON STREPTOCO CCUS GROUP A IAADIADOO 81416 MACK MACK 1 DON DON STREPTOCO CCUS GROUP A IADNA 10074 [facility] NEISSERIA 1 [facility] CENTER GONORRHOE AE AMPLIFIED PROBE TQ CONTRACEP S4993 [facility] TIVE 1 [facility] CONTROL URINE 44022 [facility] S[facility] 1 [facility] TEST C[facility] CENTER VISUAL COLOR CMPRSN METHS IADNA 42639 [facility] CHLAMYDIA 1 [facility] CENTER TRACHOMAT IS AMPLIFIED PROBE TQ SPHERE V2100 HOLLY SCIFRES SINGLE 0 VISION ANG VISION PLANO +/- 4.00 PER LENS FITTING 52155 [facility] SCIFRES SPECTACLE 0 VISION ANG S XCPT APHAKIA MONOFOCAL FRAMES V2020 [facility] SCIFRES PURCHASES 0 VISION ANG OPHTH 29466 [facility] SCIFRES MEDICAL 0 VISION ANG XM&EVAL COMPRE NEW PT 1/> VST THER 92944 TRESSA BUSTILLOS PROPH/DX 0 ELMER ELMER NJX IV PUSH SINGLE/1S T SBST/DRUG DEEP D9220 TRESSA BUSTILLOS SEDATION/ 0 ELMER ELMER GENERAL ANESTHESI A-1ST 30 MINUTES ANESTHESI 67731 TRESSA BUSTILLOS A 0 ELMER ELMER EXTERNAL MIDDLE & INNER EAR W/BX NOS IAADIADOO 05300 FREDERICK MACK, 0 DON R DON R STREPTOCO CCUS GROUP A DEEP D9220 TRESSA BUSTILLOS SEDATION/ 0 , JUAN MARTINEZ W W ANESTHESI A-1ST 30 MINUTES THER 04887 TRESSA BUSTILLOS PROPH/DX 0 , JUAN MARTINEZX IV W W PUSH SINGLE/1S T SBST/DRUG ORTHOPANT 31844 TRESSA BUSTILLOS OGRAM 0 , JUAN MARTINEZ W CONTRACEP S4993 [facility] PORRASON TIVE 0 [facility] CONTROL REPAIR OB 75.69 Matt Price NEC Encounters Encounter Start End Date Code Location Performer Type Date OFFICE 96261 Christine PAZ OUTPATIEN 7 7 NARESH DOMÍNGUEZ T VISIT PSC 15 MINUTES EMERGENCY 68697 [facility] V[facility]/M [facility] - 6 6 [facility] OUTPATIEN INC T EMERGENCY 77147 MARCUS PEÑA 6 6 [facility]IC[facility] MODERATE SEVERITY OFFICE 66411 [facility] CASTANEDA OUTPATIEN 6 6 PHYSICIAN STALIN T VISIT S GROUP 10 MINUTES OFFICE 70110 [facility] CASTANEDA OUTPATIEN 6 6 PHYSICIAN STALIN T NEW 10 S GROUP MINUTES HOSPITAL [facility] - 6 6 [facility] OUTPATIEN [facility] T EMERGENCY 97488 MARCUS LAZO 6 6 [facility]IC[facility] T VISIT MODERATE SEVERITY EMERGENCY 95608 [facility] 6 [facility] T VISIT LOW/MODER SEVERITY HOSPITAL [facility] - 6 6 [facility] INPATIENT [facility] - 6 6 [facility] OUTPATIEN INC T OFFICE 98446 [facility] SARAVIA OUTPATIEN 6 6 PHYSICIAN T VISIT S GROUP 15 MINUTES OFFICE 91368 [facility] SARAVIA OUTPATIEN 6 6 PHYSICIAN T VISIT S GROUP 15 MINUTES OFFICE 16230 [facility] SARAVIA OUTPATIEN 6 6 PHYSICIAN PILLO T VISIT S GROUP 15 MINUTES HOSPITAL [facility] 6 6 [facility] OUTPATIEN INC T [facility] 6 6 [facility] OUTPATIEN INC [facility] 6 6 [facility] OUTPATIEN INC [facility] 6 6 [facility] OUTPATIEN INC T OFFICE 82925 [facility] SARAVIA OUTPATIEN 6 6 PHYSICIAN PILLO T VISIT S GROUP 15 MINUTES HOSPITAL [facility] - 6 6 [facility] OUTPATIEN INC T OFFICE 92775 [facility] SARAVIA OUTPATIEN 6 6 PHYSICIAN PILLO T VISIT S GROUP 15 MINUTES HOSPITAL [facility] - 5 5 [facility] OUTPATIEN INC T OFFICE 35581 A Vega PAZ MADDY OUTPATIEN 5 5 NARESH DOMÍNGUEZ T VISIT PSC 15 MINUTES HOSPITAL [facility] 5 5 [facility] OUTPATIEN INC T [facility] 5 5 [facility] OUTPATIEN INC T OFFICE 77179 [facility] MANJIT OUTPATIEN 5 5 PHYSICIAN PILLO T VISIT S GROUP 15 MINUTES OFFICE 44077 A Vega CASTAÑEDA OUTPATIEN 5 5 NARESH DOMÍNGUEZ T VISIT PSC 15 MINUTES [facility] L[facility] - 5 5 [facility] OUTPATIEN INC T OFFICE 27849 [facility] SARAVIA OUTPATIEN 5 5 PHYSICIAN PILLO T VISIT S GROUP 15 MINUTES OFFICE 37446 A Vega CASTAÑEDA OUTPATIEN 5 5 NARESH DOMÍNGUEZ T VISIT PSC 15 MINUTES HOSPITAL [facility] - 5 5 [facility] OUTPATIEN INC T OFFICE 31614 A Vega CASTAÑEDA OUTPATIEN 5 5 NARESH DOMÍNGUEZ T VISIT PSC 15 MINUTES EMERGENCY 15821 MARCUS TRINIDAD 5 5 PHYSICIAN DEPARTMEN S, [facility] T VISIT MODERATE SEVERITY OFFICE 87416 [facility] MANJIT FENTONPATIEN 5 5 PHYSICIAN PILLO T VISIT S GROUP 15 MINUTES OFFICE 31154 A Vega CASTAÑEDA OUTPATIEN 5 5 NARESH DOMÍNGUEZ T VISIT PSC 15 MINUTES OFFICE 27575 A Vega CASTAÑEDA OUTPATIEN 5 5 NARESH DOMÍNGUEZ T VISIT PSC 15 MINUTES [facility]OSPITAL [facility] - 5 5 [facility] OUTPATIEN INC T OFFICE 71239 A Vega PAZ MADDY OUTPATIEN 5 5 NARESH DOMÍNGUEZ T VISIT PSC 15 MINUTES OFFICE 05449 A Vega PAZ MADDY OUTPATIEN 5 5 NARESH DOMÍNGUEZ T VISIT PSC 15 MINUTES OFFICE 83380 A Vega PAZ MADDY OUTPATIEN 5 5 NARESH DOMÍNGUEZ T VISIT PSC 15 MINUTES OFFICE 92759 [facility] PETTEY OUTPATIEN 5 5 PHYSICIAN KRYSTA T NEW 30 S GROUP MINUTES OFFICE 32376 A Vega PAZ MADDY OUTPATIEN 5 5 NARESH DOMÍNGUEZ T VISIT PSC 15 MINUTES OFFICE 69420 A Vega DA SILVA OUTPATIEN 5 5 NARESH EVANS T VISIT PSC 15 MINUTES OFFICE 92849 A Vega PAZ MADDY OUTPATIEN 5 5 NARESH DOMÍNGUEZ T VISIT PSC 15 MINUTES OFFICE 81296 A Vega PAZ MADDY OUTPATIEN 5 5 NARESH DOMÍNGUEZ T VISIT PSC 15 MINUTES OFFICE 34781 A Vega PAZ MADDY OUTPATIEN 5 5 NARESH DOMÍNGUEZ T VISIT PSC 15 MINUTES OFFICE 67523 UN[facility]ERSIT OUTPATIEN 5 5 Y T VISIT 5 HOSPITAL MINUTES [facility] 88089 [facility] OUTPATIEN 5 5 NURSE T VISIT PRACTITIO 40 NER GR MINUTES [facility] - [facility] 5 [facility] T OFFICE 65286 A Vega PAZ MADDY OUTPATIEN 5 5 NARESH DOMÍNGUEZ T VISIT PSC 25 MINUTES [facility] - 5 5 [facility] OUT[facility]EN [facility] T OFFICE 49191 A Vega PAZ MADDY OUTPATIEN 5 5 NARESH DOMÍNGUEZ T VISIT PSC 15 MINUTES [facility] 42862 [facility] MED[facility] GRE T VISIT SERV 15 FOUNDATIO MINUTES N OFFICE 05156 [facility] 5 5 Y T VISIT 5 HOSPITAL MINUTES OFFICE 40025 NO[facility]MI [facility]OCK[facility]OD [facility] 5 5 MEDICAL BRETT T VISIT SERV 15 FOUNDATIO MINUTES N HOSPITAL [facility] 5 5 [facility] 87037 [facility] 5 5 Y T [facility]ISIT 5 HOSPITAL MINUTES EMERGENCY 51830 [facility] 5 5 Y [facility] T VISIT HIGH/URGE NT SEVERITY [facility]OSPITAL [facility] 72359 NOHEMI MOHAMUD NICOLAS 5 5 MEDICAL DEPARTMEN SERV T VISIT FOUNDATIO MODERATE N SEVERITY [facility] 44728 [facility] MEDICAL SRI T VISIT SERV 15 FOUNDATIO MINUTES N OFFICE 37867 Christine PAZ [facility] 5 5 NARESH DOMÍNGUEZ T VISIT [facility] UNIVERS[facility] - 4 4 Y [facility] T OFFICE 91282 [facility] 4 4 Y T VISIT [facility] C[facility] - 4 4 [facility]IER INPATIENT REHABILIT ATION EMERGENCY 69406 NOHEMI DONNIE DEPT 4 4 MEDICAL HERBIE VISIT SERV HIGH FOUNDATIO SEVERITY& N THREAT FUNCJ OFFICE 51725 [facility] T VISIT [facility] DEPT [facility] DEPT 10 LUPE LUPE MINUTES OFFICE 47098 MANJIT SARAVIA CONSULTAT 4 4 PILLO PILLO ION NEW/ESTAB PATIENT 40 MIN PERIODIC 95519 [facility] MED EST HLTH DEPT HLTH DEPT PATIENT LUPE LUPE 18-39 YRS OFFICE 79528 FIELD AMB FIELD AMB OUTPATIEN 4 4 T VISIT 15 MINUTES OFFICE 01244 FIELD AMB FIELD AMB OUTPATIEN 4 4 T VISIT 15 MINUTES OFFICE 58099 MANJIT SARAVIA OUTPATIEN 4 4 PILLO PILLO T VISIT 15 MINUTES Inpatient IMP Luther Recinos MD (IN) 3 16:31 3 13:[address] [facility] LUTHER - 3 3 [facility] INPATIENT INC OFFICE 29034 MANJIT SARAVIA OUTPATIEN 3 3 PILLO PILLO T VISIT 15 MINUTES OFFICE 50949 SARAVIA SARAVIA OUTPATIEN 3 3 PILLO PILLO T VISIT 15 MINUTES OFFICE 95406 SARAVIA SARAVIA OUTPATIEN 3 3 PILLO PILLO T VISIT 15 MINUTES [facility]PITAL [facility] - [facility] 3 [facility] T OFFICE 64184 SARAVIA SARAVIA OUTPATIEN 3 3 PILLO PILLO T VISIT 15 MINUTES OFFICE 72475 MANJIT GREYE OUTPATIEN 3 3 PILLO PILLO T VISIT 15 MINUTES OFFICE 75856 BONITA RECINOS OUTPATIEN 3 3 GREGOR GREGOR T VISIT 15 MINUTES OFFICE 85582 MANJIT GREYE OUTPATIEN 3 3 PILLO PILLO T VISIT 15 MINUTES Inpatient IMP Luther Saravia MD (IN) 3 07:45 3 09:31 [facility] - 3 3 [facility] OUT[facility] T OFFICE 67165 MANJIT SARAVIA OUTPATIEN 3 3 PILLO PILLO T VISIT 15 MINUTES OFFICE 61280 MANJIT SARAVIA OUTPATIEN 3 3 PILLO PILLO T VISIT 15 MINUTES OFFICE 47523 FIELD AMB FIELD AMB OUTPATIEN 3 3 T VISIT 15 MINUTES OFFICE 76248 SARAVIA SARAVIA OUTPATIEN 3 3 PILLO PILLO T VISIT 15 MINUTES [facility]ITAL [facility] - 3 3 [facility] OUT[facility]IEN [facility] T OFFICE 22228 [facility] [facility] 3 3 [facility] T VISIT 5 [facility]INIC OF MINUTES [place] OFFICE [id number] FIELD AMB FIELD AMB OUTPATIEN 3 3 T VISIT 15 MINUTES OFFICE 99086 [facility] 3 3 [facility]O PILLO T VISIT 15 MINUTES OFFICE 94863 [facility] 3 3 [facility]O PILL[facility] T VISIT 15 MINUTES OFFICE 16425 [facility] 3 3 [facility]ILL[facility] T VISIT 15 MINUTES OFFICE 07249 [facility] 3 3 HEALTH [facility] T VISIT CLINIC OF 15 [place] MINUTES Emergency DESIRAE STOUT (ER) 3 13:27 3 13:34 [facility] A EMERGENCY 76649 [place] STOUT 3 3 EMERGENCY JAM DEPARTMEN SERVICES T VISIT HIGH/URGE NT SEVERITY EMERGENCY 01506 [facility] 3 3 [facility] DEPARTMEN INC T VISIT LOW/MODER SEVERITY HOSPITAL [facility] - 3 3 [facility] T OFFICE 79293 [facility] 1 1 DON DON T VISIT 15 MINUTES OFFICE 61990 [facility] 1 1 DON DON T VISIT 15 MINUTES OFFICE 18919 [facility] OUTALEAHEN 1 1 [facility] T VISIT CENTER CENTER 10 MINUTES OFFICE 88701 [facility] 1 1 DON DON T VISIT 15 MINUTES EMERGENCY 58711 [facility] 1 1 [facility] DEPARTMEN INC T VISIT LOW/MODER SEVERITY HOSPITAL [facility] - 1 1 [facility] OUTPATIEN INC T EMERGENCY 30786 [place] 1 1 EMERGENCY [facility] DEPARTMEN SERVICES T VISIT HIGH/URGE NT SEVERITY HOSPITAL [facility] - 1 1 [facility] T [facility] - 1 1 [facility] INC T OFFICE 96677 LEONEL CASTANEDA OUTPATIEN 1 1 STALIN MILAN 45 MINUTES OFFICE 61323 [facility] MACK OUTPATIEN 1 1 DON DON T VISIT 15 MINUTES OFFICE 34402 [facility] MACK OUTPATIEN 1 1 DON DON T VISIT 15 MINUTES [facility] 30603 [facility] SLOAN PREVENTIV 1 1 [employer] HEALTH E MED EST CENTER CENTER PATIENT 12-17YRS OFFICE 22890 FR[facility]ICK MACK, OUTPATIEN 0 0 DON R DON R T VISIT 15 MINUTES OFFICE 76262 [facility] MACK, OUTPATIEN 0 0 DON R DON R T VISIT 15 MINUTES OFFICE 80960 TRESSA BUSTILLOS OUTPATIEN 0 0 , JUAN MARTINEZ 10 W W MINUTES OFFICE 60738 [facility] MACK, OUTPATIEN 0 0 DON R DON R T VISIT 15 MINUTES OFFICE 42810 [facility] OUTPATIEN 0 0 [employer] HEALTH T VISIT CENTER CENTER 10 MINUTES
--- OUTSIDE RECORDS SUMMARY | 2016-11-28 04:21 | External Medical Summary Rpt ---
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 [facility] EIA TECH INC INC HIV-1&/HI V-2 SCR COLLECTIO 85862 [facility] N VENOUS 5 [facility] BLOOD INC INC VENIPUNCT URE OBSTETRIC 28381 [facility] S[facility] PANEL 5 [facility] INC INC COLLECTIO 94810 [facility] N 5 PHYSICIAN PHYSICIAN CAPILLARY S GROUP S GROUP BLOOD SPECIMEN URNLS DIP 62151 [facility] 5 [facility] STICK/TAB INC INC LET REAGENT AUTO MICROSCOP Y 98216 [facility] S[facility] NONSTRESS 5 [facility] TEST INC INC 15424 [facility] NONSTRESS 5 PHYSICIAN PILLO TEST S GROUP US PREG 03591 [place] AWILDA UTERUS 5 MEDICAL LUZ REAL TIME IMAGING W/[place] [address] [place] AWILDA 5 MEDICAL LUZ UTERUS IMAGING LIMITED ASS 1/> FETUSES US PREG 59195 [facility] UTERUS 5 [facility] W/DETAIL INC INC KO 1ST GESTATION US PREG 93104 [place] ALL UTERUS 5 MEDICAL AFTER 1ST IMAGING TRIMEST ASS 1/ [place] [address] [place] ALL 5 MEDICAL UTERUS IMAGING LIMITED ASS 1/> FETUSES LOCALIZE 46181 [facility] CEREBRAL 5 MEDICAL SEIZURE SERV CABLE/RAD FOUNDATIO IO N EEG/VIDEO OBSERVATI 17883 [facility] ON CARE 5 MEDICAL DISCHARGE SERV FOUNDATIO MANAGEMEN N T LOCALIZE 27761 [facility] CEREBRAL 5 MEDICAL SEIZURE SERV CABLE/RAD FOUNDATIO IO N EEG/VIDEO INITIAL 42442 [facility] OBSERVATI 5 MEDICAL ON SERV CARE/DAY FOUNDATIO 50 N MINUTES LOCALIZE 28676 [facility] CEREBRAL 5 MEDICAL SEIZURE SERV CABLE/RAD FOUNDATIO IO N EEG/VIDEO US PREG 44430 [place] AWILDA UTERUS 5 MEDICAL LUZ REAL TIME IMAGING W/IMAGE ASS DCMTN TRANSVAG IADNA 40822 [facility]ISS[facility] ER JR ANTHONY GONORRHOE AE AMPLIFIED PROBE TQ IADNA 69098 [facility] CHLAMYD[facility] ER JR ANTHONY TRACHOMAT IS AMPLIFIED PROBE TQ CYTP C/V 96597 [facility] AUTO THIN 5 LLC ER JR ANTHONY LYR PREPJ SCR MNL RESCR PHYS URINE 99049 Christine PAZ MADDY 5 NARESH DOMÍNGUEZ TEST PSC VISUAL COLOR CMPRSN METHS IAADIADOO 33907 A C KILPELA 5 NARESH DOMÍNGUEZ JEA STREPTOCO PSC CCUS GROUP A NEEDLE 07845 [facility] EMG EA 5 N EXTREMTY NEUROLOGY W/PARASPI NL AREA COMPLETE NERVE 07429 [facility] CONDUCTIO 5 N N STUDIES NEUROLOGY 5-6 STUDIES ELECTROEN 24145 [facility] CEPHALOGR 5 [facility] AM W/REC INC INC AWAKE&ASL EEP APPLICATI 20050 [facility] ON 5 [facility] MODALITY INC INC 1/> AREAS HOT/COLD PACKS THERAPEUT 00447 [facility] IC PX 1/> 5 [facility] AREAS INC INC EACH 15 MIN EXERCISES APPL 44277 [facility] MODALITY 5 [facility] 1/> AREAS INC INC ELEC STIMJ UNATTENDE D APPL 42843 [facility] MODALITY 5 [facility] 1/> AREAS INC INC ELEC STIMJ UNATTENDE D THERAPEUT 92265 [facility] IC PX 1/> 5 [facility] AREAS INC INC EACH 15 MIN EXERCISES MANUAL 59116 [facility] THERAPY 5 [facility] TQS 1/> INC INC REGIONS EACH 15 MINUTES APPLICATI 63715 [facility] ON 5 [facility] MODALITY INC INC 1/> AREAS HOT/COLD PACKS APPLICATI 13257 [facility] ON 5 [facility] MODALITY INC INC 1/> AREAS HOT/COLD PACKS MANUAL 22751 [facility] THERAPY 5 [facility] TQS 1/> INC INC REGIONS EACH 15 MINUTES THERAPEUT 44015 [facility] IC PX 1/> 5 [facility] AREAS INC INC EACH 15 MIN EXERCISES APPL 29668 [facility] MODALITY 5 [facility] 1/> AREAS INC INC ELEC STIMJ UNATTENDE D APPL 28923 [facility] S[facility] MODALITY 5 [facility] 1/> AREAS INC INC ELEC STIMJ UNATTENDE D THERAPEUT 84222 [facility] IC PX 1/> 5 [facility] AREAS INC INC EACH 15 MIN EXERCISES APPLICATI 20574 [facility] ON 5 [facility] MODALITY INC INC 1/> AREAS HOT/COLD PACKS PHYSICAL 45272 [facility] THERAPY 5 [facility] EVALUATIO INC INC N RADEX [facility] SPINE 5 Y Y CERVICAL [facility] 4 OR 5 VIEWS CERVICAL L0174 [facility]AR 5 BRACING, BRACING, SEMI-RIGI INC INC D FOAM THOR EXT PREFAB RADEX 07663 [facility] SPINE 5 MEDICAL MARIAH CERVICAL SERV 2 OR 3 FOUNDATIO VIEWS N RADEX 08319 [facility] 5 Y Y MINIMUM 3 HOSPITAL HOSPITAL VIEWS SBSQ 66225 [facility] 4 MEDICAL JERSON CARE/DAY SERV 25 FOUNDATIO MINUTES N SBSQ 37921 [facility] 4 MEDICAL JERSON CARE/DAY SERV 25 FOUNDATIO MINUTES N SBSQ 68156 [facility] 4 MEDICAL NAN CARE/DAY SERV 25 FOUNDATIO MINUTES N RADIOLOGI 60436 [facility] CLAYESH C 4 RADIOLOGY SHA EXAMINATI ON KNEE 1/2 VIEWS SBSQ 18613 [facility] 4 MEDICAL NAN CARE/DAY SERV 25 FOUNDATIO MINUTES N RADEX 91062 [facility] JUAN PABLO SPINE 4 RADIOLOGY III LOLIS CERVICAL 2 OR 3 VIEWS SBSQ 71063 [facility] 4 MEDICAL JERSON CARE/DAY SERV 25 FOUNDATIO MINUTES N RADEX 67452 [facility] 4 MEDICAL Y JUS MINIMUM 3 SERV VIEWS FOUNDATIO N SBSQ 27069 [facility] 4 MEDICAL ZANE CARE/DAY SERV 25 FOUNDATIO MINUTES N SBSQ [address]2750 [place] [address] MEDICAL ZANE CARE/DAY SERV 25 FOUNDATIO MINUTES N SBSQ 86602 [facility] 4 MEDICAL NAN CARE/DAY SERV 25 FOUNDATIO MINUTES N SBSQ 03162 [facility] 4 MEDICAL NAN CARE/DAY SERV 25 FOUNDATIO MINUTES N SWALLOWIN 34656 [facility] WESTERFILucretia G FUNC 4 RADIOLOGY LD IV ALL W/CINERAD IOGRAPY/V IDRADIOG SBSQ 99677 [place] [address] MEDICAL DANNIE CARE/DAY SERV 25 FOUNDATIO MINUTES N SBSQ 31241 [place] [address] MEDICAL DANNIE CARE/DAY SERV 25 FOUNDATIO MINUTES N SBSQ 82490 [place] [address] MEDICAL DANNIE CARE/DAY SERV 25 FOUNDATIO MINUTES N SBSQ 91735 [place] [address] MEDICAL DANNIE CARE/DAY SERV 25 FOUNDATIO MINUTES N SBSQ 29988 [place] [address] MEDICAL DANNIE CARE/DAY SERV 25 FOUNDATIO MINUTES N SBSQ 69101 [place] [address] MEDICAL DANNIE CARE/DAY SERV 25 FOUNDATIO MINUTES N SBSQ 49446 [place] [address] MEDICAL LISSETTE CARE/DAY SERV 25 FOUNDATIO MINUTES N INITIAL 82970 [place] [address] MEDICAL DANNIE CARE/DAY SERV 70 FOUNDATIO MINUTES N SBSQ 59365 [place] [address] MEDICAL LISSETTE CARE/DAY SERV 25 FOUNDATIO MINUTES N DUP-SCAN 14827 [place] ENDEAN XTR VEINS 4 MEDICAL JERSON COMPLETE SERV FOUNDATIO BILATERAL N STUDY SBSQ 30415 [facility] 4 MEDICAL CHR CARE/DAY SERV 15 FOUNDATIO MINUTES N SBSQ 40670 [facility] 4 MEDICAL CHR CARE/DAY SERV 15 FOUNDATIO MINUTES N RADEX 18423 [place] GERONIMO ABDOMEN 1 4 MEDICAL SCO SERV ANTEROPOS FOUNDATIO TERIOR N VIEW RADIOLOGI 30192 [place] MITCHELL C 4 MEDICAL MONICA EXAMINATI SERV ON CHEST FOUNDATIO SINGLE N VIEW FRONTAL SWALLOWIN 45659 [place] DISANTIS G FUNCJ 4 MEDICAL JOHN W/CINERAD SERV IOGRAPY/V FOUNDATIO IDRADIOG N SBSQ 20491 [facility] 4 MEDICAL CHR CARE/DAY SERV 25 FOUNDATIO MINUTES N RADIOLOGI 73177 [place] QUEEN ANNE MADDY C 4 MEDICAL EXAMINATI SERV ON CHEST FOUNDATIO SINGLE N VIEW FRONTAL SBSQ 08125 [facility] 4 MEDICAL CARE/DAY SERV 25 FOUNDATIO MINUTES N RADEX 53796 [place] ALEIDA HAND 4 MEDICAL FRA MINIMUM 3 SERV VIEWS FOUNDATIO N SBSQ 85155 [facility] 4 MEDICAL CARE/DAY SERV 25 FOUNDATIO MINUTES N RADEX 25609 [place] SZABUNIO SPINE 4 MEDICAL MAR CERVICAL SERV 2 OR [address] [place] [address] [place] HEBERT HEAD/BRAI 4 MEDICAL MADDY N W/O SERV CONTRAST FOUNDATIO MATERIAL N RADIOLOGI 21150 [place] THIAGO SAYRA C 4 MEDICAL EXAMINATI SERV ON CHEST FOUNDATIO SINGLE N VIEW FRONTAL RADIOLOGI 64674 [place] SEANGUROVSK C 4 MEDICAL AYA MAR EXAMINATI SERV ON CHEST FOUNDATIO SINGLE N VIEW FRONTAL SBSQ 09688 [facility] 4 MEDICAL CHR CARE/DAY SERV 25 FOUNDATIO MINUTES N RADIOLOGI 97423 [place] LINTON MADDY C 4 MEDICAL EXAMINATI SERV ON CHEST FOUNDATIO SINGLE N VIEW FRONTAL RADIOLOGI 25536 [place] MITCHELL C 4 MEDICAL MONICA EXAMINATI SERV ON CHE[place] [address] [place] RASLAU CERVICAL 4 MEDICAL FLA SPINE W/O SERV CONTRAST FOUNDATIO MATERIAL N ARTHRD 52620 [place] SMITH ANT 4 MEDICAL GRE INTERDY SERV CERVCL FOUNDATIO BELW C2 N EA ADDL NTRSPC RADEX 76958 [place] SERENA SPINE 1 4 MEDICAL YFN VIEW SERV SPECIFY FOUNDATIO LEVEL N ANTERIOR 20122 [place] SMITH INSTRUMEN 4 MEDICAL GRE TATION SERV 2-3 FOUNDATIO VERTEBRAL N SEGMENTS APPLICATI 93081 [place] SMITH ON 4 MEDICAL GRE INTERVERT SERV EBRAL FOUNDATIO BIOMECHAN N ICAL DEVICE ARTHRD 84182 [place] SMITH ANT 4 MEDICAL GRE INTERBODY SERV FOUNDATIO DECOMPRES N S CERVICAL BELW C2 LEVEL III 61983 [facility] SURG 4 Y OF FOX PATHOLOGY [place] [facility] GROSS&MONICA ROSCOPIC EXAM ARTHRT 21046 [place] ZHOUMEHDI KNE 4 MEDICAL BRETT W/EXPL SERV DRG/RMVL FOUNDATIO FB N ANESTHESI 43084 [place] LANDRUM A 4 MEDICAL DUN EXTENSIVE SERV SPINE & FOUNDATIO SPINAL N CORD RADEX 25778 [place] ALEIDA SPINE 1 4 MEDICAL FRA VIEW SERV SPECIFY FOUNDATIO LEVEL N RADEX 01175 [place] [facility] SPINE 1 4 MEDICAL VIEW SERV SPECIFY FOUNDATIO LEVEL N SBSQ 39507 [place] [facility] 4 MEDICAL ANT CARE/DAY SERV 35 FOUNDATIO MINUTES N RADEX 68016 [place] THIAGO SAYRA SPINE 4 MEDICAL CERVICAL SERV 2 OR [address] [place] [address] [place] AYOOB AND THORACIC 4 MEDICAL SPINE W/O SERV CONTRAST FOUNDATIO MATERIAL N RADIOLOGI 93894 [place] MONTGOMER C 4 MEDICAL Y JUS EXAMINATI SERV ON CHEST FOUNDATIO SINGLE N VIEW FRONTAL RADIOLOGI 99107 [place] MONTGOMER C 4 MEDICAL Y JUS EXAMINATI SERV ON KNEE 3 FOUNDATIO VIEWS N RADEX 94627 [place] MONTGOMER FOREARM 2 4 MEDICAL Y JUS VIEWS SERV FOUNDATIO N RADEX 29273 [place] MONTGOMER WRIST 4 MEDICAL Y JUS COMPLETE SERV MINIMUM 3 FOUNDATIO VIEWS N AMB A0431 AIR AIR SERVICE 4 METHODS METHODS CONVNTION [facility] AIR SRVC TRANSPORT [address] RADEX 65690 [place] MONTGOMER HUMERUS 4 MEDICAL Y JUS MINIMUM [address] [place] [address] [place] SULY ANGIOGRAP 4 MEDICAL MARIAH HY HEAD SERV W/CONTRAS FOUNDATIO T/NONCONT N RAST INITIAL 44058 [place] [facility] 4 MEDICAL LISSETTE CARE/DAY SERV [address] LUMBAR 85458 [place] AYOOB AND SPINE 4 MEDICAL W/O SERV CONTRAST FOUNDATIO MATERIAL N MRI 30787 [place] FLORIN ELBERT SPINAL 4 MEDICAL CANAL SERV CERVICAL FOUNDATIO W/[place] [address] [place] AYOOB AND ABDOMEN & 4 MEDICAL PELVIS SERV [place] [address] [place] DONNIE ABDOMINAL 4 MEDICAL HERBIE REAL SERV TIME FOUNDATIO W/IMAGE N LIMITED US CHEST 06854 [place] DONNIE REAL TIME 4 MEDICAL HERBIE W/IMAGE SERV DOCUMENTA FOUNDATIO TION N RADEX 70704 [place] MONTGOMER ELBOW 4 MEDICAL Y JUS COMPLETE SERV MINIMUM 3 FOUNDATIO VIEWS N RADEX 95905 [place] MONTG[place]ER HAND 4 MEDICAL Y JUS MINIMUM [address] [place] [address] [place] S[place] ANGIOGRAP 4 MEDICAL MARIAH HY NECK SERV W/CONTRAS FOUNDAT[place] T/[place] [address] [place] AYOOB AND ANGIOGRAP 4 MEDICAL HY CHEST SERV W/CONTRAS FOUNDAT[place] T/[place] [address] [place] AYOOB AND CERVICAL 4 MEDICAL SPINE W/O SERV CONTRAST FOUNDATIO MATERIAL N RADIOLOGI 16599 [place] MONTGOMER C 4 MEDICAL Y JUS EXAMINATI SERV ON FEMUR FOUNDATIO 2 VIEWS N RADEX 10427 [place] [facility] ANKLE 4 MEDICAL Y JUS COMPLETE SERV MINIMUM 3 FOUNDATIO VIEWS N RADEX 56846 [place] FOOT 4 MEDICAL Y JUS COMPLETE SERV MINIMUM 3 FOUNDATIO VIEWS N RADIOLOGI 06568 [place] MONTGOMER C 4 MEDICAL Y JUS EXAMINATI SERV ON PELVIS FOUNDATIO 1/2 N VIEWS RADIOLOGI 81689 [place] MONTGOMER C 4 MEDICAL Y JUS EXAMINATI SERV ON TIBIA FOUNDATIO & FIBULA N 2 VIEWS ECHO 78694 [place] DONNIE TRANSTHOR 4 MEDICAL HERBIE C R-T 2D SERV W/WO FOUNDATIO M-MODE N REC F-UP/LMTD REMOVAL 52400 MANJIT SARAVIA NON-BIODE 4 PILLO PILLO GRADABLE DRUG DELIVERY IMPLANT TDAP 24171 [facility] VACCINE 7 4 [facility] YRS/> IM HLTH DEPT HLTH DEPT LUPE LUPE IADNA 13942 [facility] NEISSERIA [facility] HLTH DEPT HLTH DEPT GONORRHOE LUPE LUPE AE AMPLIFIED PROBE TQ CONTRACEP J7303 [facility] T SUPPLY 4 [facility] HORMONE HLTH DEPT HLTH DEPT CONTAININ LUPE LUPE G VAG RING EA CYTP 87158 [facility] CERV/VAG 4 [facility] DISTRICT AUTO THIN HLTH DEPT HLTH DEPT LAYER LUPE LUPE PREP MNL SCREEN IADNA 34896 [facility] CHLAMYDIA 4 [facility] HLTH DEPT HLTH DEPT TRACHOMAT LUPE LUPE IS AMPLIFIED PROBE TQ IAADIADOO 80949 FIELD AMB FIELD AMB 4 STREPTOCO CCUS GROUP A ETONOGEST J7307 MANJIT SARAVIA REL 4 PILLO PILLO CNTRACPT IMPL SYS INCL IMPL & SPL INSJ 64870 MANJIT SARAVIA NON-BIODE 4 PILLO PILLO GRADABLE DRUG DELIVERY IMPLANT URINE 89087 MANJIT SARAVIA 4 PILLO PILLO TEST VISUAL COLOR CMPR[place] RE[place] OF 7569 [facility] OTHER 3 [facility] CURRENT INC INC OBSTETRIC LACERATIO N NEURAXIAL 50959 NIRMAL KINNEY LABOR 3 ELSA ELSA ANALG/ANE S PLND VAGINAL DELIVERY VAGINAL 74201 MANJIT SARAVIA DELIVERY 3 PILLO PILLO ONLY W/POSTPAR ALLAN CARE 54665 MANJIT SARAVIA NONSTRESS 3 PILLO PILLO TEST 76797 MANJIT SARAVIA NONSTRESS 3 PILLO PILLO TEST 20404 [facility] NONSTRESS 3 [facility] TEST INC INC CUL BACT 68366 COMBINED COMBINED XCPT 3 PHYSICIAN PHYSICIAN URINE S LA S LA BLOOD/STO OL AEROBIC ISOL 13238 HARPEL HARPEL NONSTRESS 3 GREGOR GREGOR TEST 05812 MANJIT GREYE NONSTRESS 3 [facility] TEST HOSP[facility] G0378 [facility] OBSERVATI 3 [facility] ON INC INC SERVICE PER HOUR INITIAL 14915 MANJIT SARAVIA OBSERVATI 3 PILLO PILLO ON CARE/DAY 70 MINUTES [place] PREG 21284 [facility] UTERUS 3 [facility] REAL TIME INC INC W/[place] [address] [facility] INFUSION 3 [facility] THERAPY/P INC INC ROPHYLAXI S /DX 1ST TO 1 HR INITIAL 42627 SARAVIA SARAVIA OBSERVATI 3 PILLO PILLO ON CARE/DAY 50 MINUTES URNLS DIP 52229 [facility] 3 [facility] STICK/TAB INC INC LET REAGENT AUTO MICROSCOP Y FTL 09581 [facility] S[facility] FIBRONECT 3 [facility] IN INC INC CERVICOVA G SECRETION S SEMI-MICHELE EVAL C/V 59828 [facility] AMNIOTIC 3 [facility] FLUID INC INC PROTEIN QUAL EA SPECIMEN 69471 [facility] S[facility] NONSTRESS 3 [facility] TEST INC INC 75815 SARAVIA SARAVIA NONSTRESS 3 PILLO PILLO TEST GLUCOSE 98261 [facility] TOLERANCE 3 [facility] EA ADDL INC INC BEYOND 3 SPECIMENS GLUCOSE 74857 [facility] TOLERANCE 3 [facility] TEST GTT INC INC 3 SPECIMENS URNLS DIP 79443 [facility] 3 [facility] STICK/TAB INC INC LET RGNT NON-AUTO W/O MICRSCP GLUCOSE 59550 [facility]OMEN'[facility] SAR[facility] TOLERANCE 3 HEALTH PILLO TEST GTT CLINIC OF 3 [place] SPECIMENS 75378 WOMEN'S SARAVIA NONSTRESS 3 HEALTH PILLO TEST CLINIC [place] PREG 88201 MANJIT SARAVIA UTERUS 3 PILLO PILLO AFTER 1ST TRIMEST 1/ GESTATION [place] PREG 49964 WOMEN'S SARAVIA UTERUS 3 HEALTH PILLO REAL TIME CLINIC OF W/IMAGE [place] DCMTN TRANSVAG ANTIBODY 50630 COMBINED COMBINED CHLAMYDIA 3 PHYSICIAN PHYSICIAN S LA S LA CUL BACT 89657 COMBINED COMBINED XCPT 3 PHYSICIAN PHYSICIAN URINE S LA S LA BLOOD/STO OL AEROBIC ISOL CULTURE 78225 [facility] S[facility] BACTERIAL 3 [facility] INC INC QUANTTATI VE COLONY COUNT URINE CULTURE 03925 [facility] BCT 3 [facility] ISOL&PRSM INC INC PTV ID ISOLATE EA URINE URINE 51373 [facility] LUTHER 3 [facility] TEST INC INC VISUAL COLOR CMPRSN METHS URNLS DIP 09129 [facility] 3 [facility] STICK/TAB INC INC LET REAGENT AUTO MICROSCOP Y SUSCEPTIB 28250 [facility] LTY STDY 3 [facility] ANTIMICRB INC INC IAL MICRO/AGA R DILUTJ IAADIADOO 71028 FREDERICK MACK 1 DON DON STREPTOCO CCUS GROUP A CONTRACEP S4993 [facility] TIVE 1 Hydrocapsule [facility] CONTROL COMPRE 52537 MEREDITH HARPER AUDIOMETR 1 JACQUE JACQUE Y THRESHOLD EVAL SP RECOGNIJ TYMPANOME 91505 MEREDITH HARPER TRY 1 JACQUE JAC[address] ANESTHESI 80[address] [facility] 1 ANESTH INTRAORAL OF THE WITH BLUE BIOPSY NOS LEVEL III 50800 [facility] SURG 1 NANCI & ALEISHA PATHOLOGY DUBILIER GROSS&MONICA ROSCOPIC EXAM TONSILLEC 282 [facility] JENNIFER 1 [facility] WITHOUT INC INC ADENOIDEC JENNIFER TONSILLEC 41324 [facility] JENNIFER 1 [facility] PRIMARY/S INC INC ECONDARY AGE 12/> IV [address] [facility] INFUSION 1 [facility] THERAPY INC INC PROPHYLAX IS/DX EA HOUR BLOOD 98152 [facility] COUNT 1 [facility] HEMATOCRI INC INC T GONADOTRO 86598 [facility] PIN 1 [facility] CHORIONIC INC INC QUALITATI VE BLOOD 99802 [facility] COUNT 1 [facility] HEMOGLOBI INC INC N IAADIADOO 31142 FREDERICK JINHENS 1 DON DON STREPTOCO CCUS GROUP A IAADIADOO 31456 FREDERICK MACK 1 DON DON STREPTOCO CCUS GROUP A IADNA 40130 [facility] NEISSERIA 1 [facility] CENTER GONORRHOE AE AMPLIFIED PROBE TQ CONTRACEP S4993 [facility] TIVE 1 [facility] CENTER CONTROL IADNA 92778 [facility] S[facility] CHLAMYDIA [address] [facility] CENTER TRACHOMAT IS AMPLIFIED PROBE TQ URINE 44818 [facility] 1 [facility] CENTER CENTER VISUAL COLOR CMPRSN METHS OPHTH 97441 [facility] CABALLERO MEDICAL 0 VISION ANG XM&EVAL COMPRE NEW PT 1/> VST FITTING 66692 [facility] CABALLERO SPECTACLE 0 VISION ANG S XCPT APHAKIA MONOFOCAL SPHERE V2100 [facility] CABALLERO SINGLE 0 VISION ANG VISION PLANO +/- 4.00 PER LENS FRAMES V2020 [facility] CABALLERO PURCHASES 0 VISION ANG THER 18938 TRESSA BUSTILLOS PROPH/DX 0 ELMER ELMER NJX IV PUSH SINGLE/1S T SBST/DRUG DEEP D9220 TRESSA BUSTILLOS SEDATION/ 0 ELMER ELMER GENERAL ANESTHESI A-1ST 30 MINUTES ANESTHESI 44014 TRESSA BUSTILLOS A 0 ELMER ELMER EXTERNAL MIDDLE & INNER EAR W/BX NOS IAADIADOO 81289 FREDERICK MACK, 0 DON R DON R STREPTOCO CCUS GROUP A THER 10588 TRESSA BUSTILLOS PROPH/DX 0 , JUAN MARTINEZ NJX IV W W PUSH SINGLE/1S T SBST/DRUG DEEP D9220 TRESSA BUSTILLOS SEDATION/ 0 , JUAN MARTINEZ W W ANESTHESI A-1ST 30 MINUTES ORTHOPANT 48761 TRESSA BUSTILLOS OGRAM 0 , JUAN MARTINEZ W CONTRACEP S4993 [facility] TIVE 0 [facility] [employer] [facility] CONTROL Encounters Encounter Start End Date Code Location Performer Type Date OFFICE 98658 Christine CHEEK 7 7 NARESH DOMÍNGUEZ T [facility]ISIT [facility] 15 MINUTES EMERGENCY 60532 MARCUS PEÑA 6 6 PHYSIC[facility] MODERATE SEVERITY EMERGENCY 22460 [facility] 6 6 [facility] T VISIT LIMITED/M INOR [facility] - 6 6 [facility] OFFICE 99368 [facility] LEONEL OUTALEAHEN 6 6 PHYSICIAN STALIN T VISIT S GROUP 10 MINUTES OFFICE 86490 [facility] LEONEL AUGUSTINEN 6 6 PHYSICIAN STALIN T NEW 10 S GROUP MINUTES EMERGENCY 44026 MARCUS LAZO 6 6 PHYSICIAN S[facility] T VISIT MODERATE SEVERITY EMERGENCY 70138 [facility] 6 6 [facility]IS[facility] LOW/MODER SEVERITY [facility] - 6 6 [facility] - 6 [facility] INPATIENT INC OFFICE 71770 [facility] SARAVIA OUTPATIEN 6 6 PHYSICIAN T VISIT S GROUP 15 MINUTES [facility] - 6 6 [facility] OFF[facility] 42110 [facility] SARAVIA OUTPATIEN 6 6 PHYSICIAN T VISIT S GROUP 15 MINUTES OFFICE 74925 [facility] SARAVIA OUTPATIEN 6 6 PHYSICIAN PILLO T VISIT S GROUP 15 MINUTES [facility] - 6 6 [facility] 6 6 [facility] T OFFICE 55603 [facility] SARAVIA OUTPATIEN 6 6 PHYSICIAN PILLO T VISIT S GROUP 15 MINUTES [facility] - 6 6 [facility] OUTPATIEN INC T OFFICE 20152 [facility] SARAVIA OUTPATIEN 6 6 PHYSICIAN PILLO T VISIT S GROUP 15 MINUTES [facility] LUTHER - 6 6 [facility]EN [facility] L[facility] - 5 5 [facility] OUTPATIEN INC T OFFICE 32035 A [facility] CASTAÑ[facility]A OUTPATIEN 5 5 NARESH DOMÍNGUEZ T VISIT PSC 15 MINUTES [facility] LUTHER - 5 5 [facility] - 5 5 [facility] T OFFICE 53376 [facility] MANJIT OUTALEAHEN 5 5 PHYSICIAN PILLO T VISIT S GROUP 15 MINUTES OFFICE 51325 A Vega CASTAÑEDA OUTPATIEN 5 5 NARESH DOMÍNGUEZ T VISIT PSC 15 MINUTES [facility] - 5 5 [facility] T OFFICE 70510 [facility] MANJIT AUGUSTINEN 5 5 PHYSICIAN PILLO T VISIT S GROUP 15 MINUTES OFFICE 24146 A [facility] CASTAÑ[facility]A OUTPATIEN 5 5 NARESH DOMÍNGUEZ T VISIT PSC 15 MINUTES [facility] - 5 5 [facility] INC T OFFICE 80418 A [facility] [place] OUTPATIEN 5 5 NARESH DOMÍNGUEZ T VISIT PSC 15 MINUTES EMERGENCY 08461 MARCUS TRINIDAD 5 5 [facility] T VISIT MODERATE SEVERITY OFFICE 12860 [facility] MANJIT CHEEK 5 5 PHYSICIAN PILLO T VISIT S GROUP 15 MINUTES OFFICE 59558 A [facility]ega CASTAÑEDA OUTPATIEN 5 5 NARESH DOMÍNGUEZ T VISIT PSC 15 MINUTES OFFICE 20991 A [facility] PAZ MADDY OUTPATIEN 5 5 NARESH DOMÍNGUEZ T VISIT PSC 15 MINUTES [facility] - 5 5 [facility] T OFFICE 41321 A [facility]ega PAZ MADDY OUTPATIEN 5 5 NARESH DOMÍNGUEZ T VISIT PSC 15 MINUTES OFFICE 53833 A [facility] PAZ MADDY OUTPATIEN 5 5 NARESH DOMÍNGUEZ T VISIT PSC 15 MINUTES OFFICE 35132 A [facility]ega PAZ MADDY OUTPATIEN 5 5 NARESH DOMÍNGUEZ T VISIT PSC 15 MINUTES OFFICE 22425 [facility] PETTEY OUTPATIEN 5 5 PHYSICIAN KRYSTA T NEW 30 S GROUP MINUTES OFFICE 73672 A Vega PAZ MADDY OUTPATIEN 5 5 NARESH DOMÍNGUEZ T VISIT PSC 15 MINUTES OFFICE 18418 A Vega DA SILVA OUTPATIEN 5 5 NARESH EVANS T VISIT PSC 15 MINUTES OFFICE 64862 A Vega PAZ MADDY OUTPATIEN 5 5 NARESH DOMÍNGUEZ T VISIT PSC 15 MINUTES OFFICE 24324 A Vega CASTAÑEDA OUTPATIEN 5 5 NARESH DOMÍNGUEZ T VISIT PSC 15 MINUTES OFFICE 13600 A Vega PAZ AMDDY OUTPATIEN 5 5 NARESH DOMÍNGUEZ T VISIT PSC 15 MINUTES OFFICE 41973 UNIVERSIT OUTPATIEN 5 5 Y T VISIT 5 HOSPITAL MINUTES OFFICE 62073 [facility] MIKY OUTPATIEN 5 5 NURSE T VISIT PRACTITIO 40 NER GR MINUTES HOSPITAL UNIVERSIT - 5 5 Y OUTPATIEN HOSPITAL T [facility] - 5 5 [facility] OUTPATI[facility] INC T OFFICE 09513 A Vega PAZ MADDY OUTPATIEN 5 5 NARESH DOMÍNGUEZ T VISIT PSC 25 MINUTES [facility]OSP[facility] - [facility] 5 [facility] T OFFICE 74401 Christine CASTAÑEDA OUTPATIEN 5 5 NARESH DOMÍNGUEZ T VISIT PSC 15 MINUTES OFFICE 18583 NOHEMI SMITH OUTPATIEN 5 5 MEDICAL GRE T VISIT SERV 15 FOUNDATIO MINUTES N OFFICE 25314 [facility] T V[facility]IT 5 [facility] 79920 NOHEMI EPPERSONMEHDI OUTPATIEN 5 5 MEDICAL BRETT T VISIT SERV 15 FOUNDATIO MINUTES N OFFICE 81798 [facility] 5 5 Y T VISIT 5 [facility] UN[facility] - 5 5 Y [facility] T EMERGENCY 00473 NOHEMI SAINIALI NICOLAS 5 5 MEDICAL DEPARTMEN SERV T VISIT FOUNDATIO MODERATE N SEVERITY EMERGENCY 39251 UNIVERSIT 5 5 Y [facility] T VISIT HIGH/URGE NT SEVERITY HOSPITAL UNIVERSIT - 5 5 Y [facility] UNIVERSIT - 5 5 Y [facility] T OFFICE 07475 [facility] 5 5 Y T VISIT HOSPITAL 15 MINUTES OFFICE 81877 Christine CASTAÑEDA OUTPATIEN 5 5 NARESH DOMÍNGUEZ T VISIT PSC 15 MINUTES OFFICE 51565 NOHEMI SANTIZO OUTPATIEN 4 4 MEDICAL SRI T VISIT SERV 15 FOUNDATIO MINUTES N HOSPITAL UNIVERSIT - 4 4 Y [facility] T HOSP[facility] CARDINAL - 4 4 [place] [facility] 48877 NOHEMI FIELDS DEPT 4 4 MEDICAL HERBIE VISIT SERV HIGH FOUNDATIO SEVERITY& N THREAT FUNCJ OFFICE 49688 [facility] DEPT HLTH DEPT 10 LUPE LUPE MINUTES OFFICE 50345 MANJIT SARAVIA CONSULTAT 4 4 [facility] P[facility] ION NEW/ESTAB PATIENT 40 MIN PERIODIC 46434 [facility] PRE[facility]IV 4 4 [facility] E MED EST HLTH DEPT HLTH DEPT PATIENT LUPE LUPE 18-39 YRS OFFICE 54268 FIELD AMB FIELD AMB OUTPATIEN 4 4 T VISIT 15 MINUTES OFFICE 97162 FIELD AMB FIELD AMB OUTPATIEN 4 4 T VISIT 15 MINUTES OFFICE 64558 MAJNIT SARAVIA OUTPATIEN 4 4 [facility] T VISIT 15 MINUTES [facility] - [facility] 3 [facility] INPATIENT INC OFFICE 27701 MANJIT GREYE OUTPATIEN 3 3 [place] T VISIT 15 MINUTES OFFICE 74968 MANJIT GREYE OUTPATIEN 3 3 [facility] T VISIT 15 MINUTES [facility] - [facility] 3 [facility] T OFFICE 40270 SARAVIA SARAVIA OUTPATIEN 3 3 [place] T VISIT 15 MINUTES OFFICE 72031 SARAVIA SARAVIA OUTPATIEN 3 3 [facility] T VISIT 15 MINUTES OFFICE 16160 MANJIT GREYE OUTPATIEN 3 3 [place] T VISIT 15 MINUTES OFFICE 66623 HARPEL HARPEL OUTPATIEN 3 3 GREGOR GREGOR T VISIT 15 MINUTES OFFICE 43348 SARAVIA SARAVIA OUTPATIEN 3 3 [facility] T VISIT 15 MINUTES [facility] - [facility] 3 [facility]PATI[facility] T OFFICE 16578 SARAVIA SARAVIA OUTPATIEN 3 3 [place] T VISIT 15 MINUTES OFFICE 65898 SARAVIA SARAVIA OUTPATIEN 3 3 [facility] [place] T VISIT 15 MINUTES OFFICE 15773 FIELD AMB FIELD AMB OUTPATIEN 3 3 T VISIT 15 MINUTES OFFICE 84063 SARAVIA SARAVIA OUTPATIEN 3 3 [facility] T VISIT 15 MINUTES [facility] 3 [facility] T OFFICE 95262 [facility] OUTPATIEN 3 3 [facility] T VISIT 5 CLINIC OF MINUTES LISSETTE OFFICE 82448 FIELD AMB FIELD AMB OUTPATIEN 3 3 T VISIT 15 MINUTES OFFICE 12914 SARAVIA SARAVIA OUTPATIEN 3 3 PILLO PILLO T VISIT 15 MINUTES OFFICE 34214 SARAVIA SARAVIA OUTPATIEN 3 3 PILLO PILLO T VISIT 15 MINUTES OFFICE 32146 SARAVIA SARAVIA OUTPATIEN 3 3 [facility]O [facility]ILL[facility] T VISIT 15 MINUTES OFFICE 18626 [facility] OUTPATIEN 3 3 HEALTH PILLO T VISIT CLINIC OF 15 LISSETTE MINUTES EMERGENCY 84646 TAPAN STOUT 3 3 EMERGENCY [facility] DEPARTMEN SERVICES T VISIT HIGH/URGE NT SEVERITY EMERGENCY 93304 [facility] 3 3 [facility] DEPARTMEN INC T VISIT LOW/MODER SEVERITY [facility]PITAL [facility] - 3 3 [facility] OUTPATIEN INC T OFFICE 13641 MACK MACK OUTPATIEN 1 1 DON DON T VISIT 15 MINUTES OFFICE 84043 MACK MACK OUTPATIEN 1 1 DON DON T VISIT 15 MINUTES OFFICE 03221 [facility] SLOAN OUTPATIEN 1 1 [facility] CENTER 10 MINUTES OFFICE 52944 MACK MACK OUTPATIEN 1 1 DON DON T VISIT 15 MINUTES EMERGENCY 40587 TAPAN LAN 1 1 EMERGENCY [facility] DEPARTMEN SERVICES T VISIT HIGH/URGE NT SEVERITY [facility]OSPITAL [facility] - 1 1 [facility] OUTPATIEN INC T EMERGENCY 78209 [facility] 1 1 [facility] DEPARTMEN INC T VISIT LOW/MODER SEVERITY [facility] 1 1 [facility] T [facility] - 1 1 [facility] T OFFICE 32916 LEONEL CASTANEDA OUTPATIEN 1 1 STALIN Lopez NEW 45 MINUTES OFFICE 44699 [facility] OUTPATIEN 1 1 DON DON T VISIT 15 MINUTES OFFICE 84428 FREDERICK MACK OUTPATIEN 1 1 DON DON T VISIT 15 MINUTES PERIODIC 35260 [facility] SLOAN PREVENTIV 1 1 [facility] EST CENTER CENTER PATIENT 12-17YRS OFFICE 80822 YARED MACKS, OUTPATIEN 0 0 DON R DON R T VISIT 15 MINUTES OFFICE 41282 FREDERICK MACK, OUTPATIEN 0 0 DON R DON R T VISIT 15 MINUTES OFFICE 22826 TRESSA BUSTILLOS OUTPATIEN 0 0 , JUAN MARTINEZ 10 W W MINUTES OFFICE 48228 FREDERICK MACK, OUTPATIEN 0 0 DON R DON R T VISIT 15 MINUTES OFFICE 62169 [facility] SLOAN OUTPATIEN 0 0 [employer] VISIT C[facility] CENTER 10 MINUTES
--- OUTSIDE RECORDS SUMMARY | 2016-11-28 04:21 | External Medical Summary Rpt ---
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 LD IV ALL W/CINERAD IOGRAPY/V IDRADIOG SBSQ 92847 [place] [address] MEDICAL DANNIE CARE/DAY SERV 25 FOUNDATIO MINUTES N SBSQ 77799 [place] [address] MEDICAL DANNIE CARE/DAY SERV 25 FOUNDATIO MINUTES N SBSQ 12510 [place] [address] MEDICAL DANNIE CARE/DAY SERV 25 FOUNDATIO MINUTES N SBSQ 02669 [place] [address] MEDICAL DANNIE CARE/DAY SERV 25 FOUNDATIO MINUTES N SBSQ 68369 [place] [address] MEDICAL DANNIE CARE/DAY SERV 25 FOUNDATIO MINUTES N SBSQ 22422 [place] [address] MEDICAL DANNIE CARE/DAY SERV 25 FOUNDATIO MINUTES N SBSQ 03222 [place] [address] MEDICAL LISSETTE CARE/DAY SERV 25 FOUNDATIO MINUTES N INITIAL 00014 [place] [address] MEDICAL DANNIE CARE/DAY SERV 70 FOUNDATIO MINUTES N SBSQ 23101 [place] [address] MEDICAL LISSETTE CARE/DAY SERV 25 FOUNDATIO MINUTES N DUP-SCAN 28778 [place] ENDEAN XTR VEINS 4 MEDICAL JESRON COMPLETE SERV FOUNDATIO BILATERAL N STUDY SBSQ 62911 [facility] 4 MEDICAL CHR CARE/DAY SERV 15 FOUNDATIO MINUTES N SBSQ 82689 [facility] 4 MEDICAL CHR CARE/DAY SERV 15 FOUNDATIO MINUTES N RADEX 33898 [place] GERONIMO ABDOMEN 1 4 MEDICAL SCO SERV ANTEROPOS FOUNDATIO TERIOR N VIEW RADIOLOGI 90687 [place] MITCHELL C 4 MEDICAL MONICA EXAMINATI SERV ON CHEST FOUNDATIO SINGLE N VIEW FRONTAL SWALLOWIN 03659 [place] DISANTIS G FUNCJ 4 MEDICAL JOHN W/CINERAD SERV IOGRAPY/V FOUNDATIO IDRADIOG N SBSQ 55813 [facility] 4 MEDICAL CHR CARE/DAY SERV 25 FOUNDATIO MINUTES N RADIOLOGI 25720 [place] PHOENIX MADDY C 4 MEDICAL EXAMINATI SERV ON CHEST FOUNDATIO SINGLE N VIEW FRONTAL SBSQ 29026 [facility] 4 MEDICAL CARE/DAY SERV 25 FOUNDATIO MINUTES N RADEX 86414 [place] ALEIDA HAND 4 MEDICAL FRA MINIMUM 3 SERV VIEWS FOUNDATIO N SBSQ 81856 [facility] 4 MEDICAL CARE/DAY SERV 25 FOUNDATIO MINUTES N RADEX 65578 [place] SZABUNIO SPINE 4 MEDICAL MAR CERVICAL SERV 2 [place] [address] [place] [address] [place] HEBERT HEAD/BRAI 4 MEDICAL MADDY N W/O SERV CONTRAST FOUNDATIO MATERIAL N RADIOLOGI 04445 [place] THIAGO SAYRA C 4 MEDICAL EXAMINATI SERV ON CHEST FOUNDATIO SINGLE N VIEW FRONTAL RADIOLOGI 62820 [place] SEANGUROVSK C 4 MEDICAL AYA MAR EXAMINATI SERV ON CHEST FOUNDATIO SINGLE N VIEW FRONTAL SBSQ 15244 [facility] 4 MEDICAL CHR CARE/DAY SERV 25 FOUNDATIO MINUTES N RADIOLOGI 99210 [place] LINTON MADDY C 4 MEDICAL EXAMINATI SERV ON CHEST FOUNDATIO SINGLE N VIEW FRONTAL RADIOLOGI 90675 [place] MITCHELL C 4 MEDICAL MONICA EXAMINATI SERV ON CHE[place] [address] [place] RASLAU CERVICAL 4 MEDICAL FLA SPINE W/O SERV CONTRAST FOUNDATIO MATERIAL N ARTHRD 90997 [place] SMITH ANT 4 MEDICAL GRE INTERDY SERV CERVCL FOUNDATIO BELW C2 N EA ADDL NTRSPC RADEX 50816 [place] SERENA SPINE 1 4 MEDICAL YFN VIEW SERV SPECIFY FOUNDATIO LEVEL N ANTERIOR 09317 [place] SMITH INSTRUMEN 4 MEDICAL GRE TATION SERV 2-3 FOUNDATIO VERTEBRAL N SEGMENTS APPLICATI 86869 [place] SMITH ON 4 MEDICAL GRE INTERVERT SERV EBRAL FOUNDATIO BIOMECHAN N ICAL DEVICE ARTHRD 53192 [place] SMITH ANT 4 MEDICAL GRE INTERBODY SERV FOUNDATIO DECOMPRES N S CERVICAL BELW C2 LEVEL III 47458 [facility] SURG 4 Y [facility] GROSS&MONICA ROSCOPIC EXAM ARTHRT 63912 [place] ZHOUMEHDI KNE 4 MEDICAL BRETT W/EXPL SERV DRG/RMVL FOUNDATIO FB N ANESTHESI 38755 [place] LANDRUM A 4 MEDICAL DUN EXTENSIVE SERV SPINE & FOUNDATIO SPINAL N CORD RADEX 99059 [place] ALEIDA SPINE 1 4 MEDICAL FRA VIEW SERV SPECIFY FOUNDATIO LEVEL N RADEX 57849 [place] [facility] SPINE 1 4 MEDICAL VIEW SERV SPECIFY FOUNDATIO LEVEL N SBSQ 86336 [place] [facility] 4 MEDICAL ANT CARE/DAY SERV 35 FOUNDATIO MINUTES N RADEX 88249 [place] THIAGO SAYRA SPINE 4 MEDICAL CERVICAL SERV 2 OR [address] [place] [address] [place] AYOOB AND THORACIC 4 MEDICAL SPINE W/O SERV CONTRAST FOUNDATIO MATERIAL N RADIOLOGI 30193 [place] MONTGOMER C 4 MEDICAL Y JUS EXAMINATI SERV ON CHEST FOUNDATIO SINGLE N VIEW FRONTAL RADIOLOGI 51979 [place] MONTGOMER C 4 MEDICAL Y JUS EXAMINATI SERV ON KNEE 3 FOUNDATIO VIEWS N RADEX 54069 [place] MONTG[place] FOREARM 2 4 MEDICAL Y JUS VIEWS SERV FOUNDATIO N RADEX 97768 [place] MONTGOMER WRIST 4 MEDICAL Y JUS COMPLETE SERV MINIMUM 3 FOUNDATIO VIEWS N AMB A0431 AIR AIR SERVICE 4 METHODS METHODS CONVNTION [facility] AIR SRVC TRANSPORT [address] RADEX 69486 [place] MONTGOMER HUMERUS 4 MEDICAL Y JUS MINIMUM [address] [place] [address] [place] S[place] ANGIOGRAP 4 MEDICAL MARIAH HY HEAD SERV W/CONTRAS FOUNDATIO T/NONCONT N RAST INITIAL 44573 [place] [facility] 4 MEDICAL LISSETTE CARE/DAY SERV [address] LUMBAR 92276 [place] AYOOB AND SPINE 4 MEDICAL W/O SERV CONTRAST FOUNDATIO MATERIAL N MRI 17145 [place] FLORIN ELBERT SPINAL 4 MEDICAL CANAL SERV CERVICAL FOUNDATIO W/[place] [address] [place] AYOOB AND ABDOMEN & 4 MEDICAL PELVIS SERV [place] [address] [place] DONNIE ABDOMINAL 4 MEDICAL HERBIE REAL SERV TIME FOUNDATIO W/IMAGE N LIMITED US CHEST 93821 [place] DONNIE REAL TIME 4 MEDICAL HERBIE W/IMAGE SERV DOCUMENTA FOUNDATIO TION N RADEX 74713 [place] MONTGOMER ELBOW 4 MEDICAL Y JUS COMPLETE SERV MINIMUM 3 FOUNDATIO VIEWS N RADEX 93097 [place] MONTG[place] HAND 4 MEDICAL Y JUS MINIMUM [address] [place] [address] [place] ANGIOGRAP 4 MEDICAL MARIAH HY NECK SERV W/CONTRAS FOUNDAT[place] T/[place] [address] [place] AYOOB AND ANGIOGRAP 4 MEDICAL HY CHEST SERV W/CONTRAS FOUNDAT[place] T/[place] [address] [place] AYOOB AND CERVICAL 4 MEDICAL SPINE W/O SERV CONTRAST FOUNDATIO MATERIAL N RADIOLOGI 00495 [place] MONTGOMER C 4 MEDICAL Y JUS EXAMINATI SERV ON FEMUR FOUNDATIO 2 VIEWS N RADEX 53451 [place] MONTGOMER ANKLE 4 MEDICAL Y JUS COMPLETE SERV MINIMUM 3 FOUNDATIO VIEWS N RADEX 73704 [place] [facility] FOOT 4 MEDICAL Y JUS COMPLETE SERV MINIMUM 3 FOUNDATIO VIEWS N RADIOLOGI 92100 [place] MONTGOMER C 4 MEDICAL Y JUS EXAMINATI SERV ON PELVIS FOUNDATIO 1/2 N VIEWS RADIOLOGI 25721 [place] MONTGOMER C 4 MEDICAL Y JUS EXAMINATI SERV ON TIBIA FOUNDATIO & FIBULA N 2 VIEWS ECHO 52608 [place] DONNIE TRANSTHOR 4 MEDICAL HERBIE C R-T 2D SERV W/WO FOUNDATIO M-MODE N REC F-UP/LMTD REMOVAL 25814 MANJIT SARAVIA NON-BIODE 4 PILLO PILLO GRADABLE DRUG DELIVERY IMPLANT TDAP 84784 [facility] VACCINE 7 4 [facility] YRS/> IM HLTH DEPT HLTH DEPT LUPE LUPE IADNA 82951 [facility] NEISSERIA [facility] HLTH DEPT HLTH DEPT GONORRHOE LUPE LUPE AE AMPLIFIED PROBE TQ CONTRACEP J7303 [facility] T SUPPLY 4 [facility] HORMONE HLTH DEPT HLTH DEPT CONTAININ LUPE LUPE G VAG RING EA CYTP 94103 [facility] CERV/VAG 4 [facility] DISTRICT AUTO THIN HLTH DEPT HLTH DEPT LAYER LUPE LUPE PREP MNL SCREEN IADNA 02477 [facility] CHLAMYDIA 4 [facility] HLTH DEPT HLTH DEPT TRACHOMAT LUPE LUPE IS AMPLIFIED PROBE TQ IAADIADOO 32294 FIELD AMB FIELD AMB 4 STREPTOCO CCUS GROUP A ETONOGEST J7307 MANJIT SARAVIA REL 4 PILLO PILLO CNTRACPT IMPL SYS INCL IMPL & SPL INSJ 71596 MANJIT SARAVIA NON-BIODE 4 PILLO PILLO GRADABLE DRUG DELIVERY IMPLANT URINE 37472 MANJIT SARAVIA 4 PILLO PILLO TEST VISUAL COLOR CMPRSN METHS REPAIR OF 7569 [facility] OTHER 3 [facility] CURRENT INC INC OBSTETRIC LACERATIO N NEURAXIAL 05790 NIRMAL KINNEY LABOR 3 ELSA ELSA ANALG/ANE S PLND VAGINAL DELIVERY VAGINAL 44052 MANJIT SARAVIA DELIVERY 3 PILLO PILLO ONLY W/POSTPAR ALLAN CARE 01538 MANJIT SARAVIA NONSTRESS 3 PILLO PILLO TEST 41378 MANJIT SARAVIA NONSTRESS 3 PILLO PILLO TEST 46306 [facility] NONSTRESS 3 [facility] TEST INC INC CUL BACT 54747 COMBINED COMBINED XCPT 3 PHYSICIAN PHYSICIAN URINE S LA S LA BLOOD/STO OL AEROBIC ISOL 78600 HARPEL HARPEL NONSTRESS 3 GREGOR GREGOR TEST 03279 MANJIT GREYE NONSTRESS 3 PILLO PILLO TEST HOSPITAL G0378 [facility] OBSERVATI 3 [facility] ON INC INC SERVICE PER HOUR INITIAL 98526 MANJIT SARAVIA OBSERVATI 3 PILLO PILLO ON CARE/DAY 70 MINUTES US PREG 94329 [facility] UTERUS 3 [facility] REAL TIME INC INC W/[place] [address] [facility] INFUSION 3 [facility] THERAPY/P INC INC ROPHYLAXI S /DX 1ST TO 1 HR INITIAL 30798 SARAVIA SARAVIA OBSERVATI 3 PILLO PILLO ON CARE/DAY 50 MINUTES URNLS DIP 28883 [facility] 3 [facility] STICK/TAB INC INC LET REAGENT AUTO MICROSCOP Y FTL 09601 [facility]DWIGHT S[facility] FIBRONECT 3 [facility] IN INC INC CERVICOVA G SECRETION S SEMI-MICHELE EVAL C/V 77249 [facility] AMNIOTIC 3 [facility] FLUID INC INC PROTEIN QUAL EA SPECIMEN 70577 [facility] NONSTRESS 3 [facility] TEST INC INC 11197 SARAVIA SARAVIA NONSTRESS 3 PILLO PILLO TEST GLUCOSE 04115 [facility] TOLERANCE 3 [facility] EA ADDL INC INC BEYOND 3 SPECIMENS GLUCOSE 96970 [facility] TOLERANCE 3 [facility] TEST GTT INC INC 3 SPECIMENS URNLS DIP 73880 [facility] 3 [facility] STICK/TAB INC INC LET RGNT NON-AUTO W/O MICRSCP GLUCOSE 07198 WOMEN'S SAR[facility] TOLERANCE 3 HEALTH PILLO TEST GTT CLINIC OF 3 LISSETTE SPECIMENS 17316 [facility]OMEN'S [facility] NONSTRESS 3 HEALTH PILLO TEST [place] 09327 MANJIT SARAVIA UTERUS 3 PILLO PILLO AFTER 1ST TRIMEST 1/ GESTATION [place] PREG 99677 [facility] UTERUS 3 HEALTH PILLO REAL TIME CLINIC OF W/IMAGE LISSETTE DCMTN TRANSVAG ANTIBODY 95656 COMBINED COMBINED CHLAMYDIA 3 PHYSICIAN PHYSICIAN S LA S LA CUL BACT 10400 COMBINED COMBINED XCPT 3 PHYSICIAN PHYSICIAN URINE S LA S LA BLOOD/STO OL AEROBIC ISOL CULTURE 97660 [facility] S[facility] BACTERIAL 3 [facility] INC INC QUANTTATI VE COLONY COUNT URINE CULTURE 98332 [facility] BCT 3 [facility] ISOL&PRSM INC INC PTV ID ISOLATE EA URINE URINE 09744 [facility] LUTHER 3 [facility] TEST INC INC VISUAL COLOR CMPRSN METHS URNLS DIP 73915 [facility] 3 [facility] STICK/TAB INC INC LET REAGENT AUTO MICROSCOP Y SUSCEPTIB 69297 [facility] LTY STDY 3 [facility] ANTIMICRB INC INC IAL MICRO/AGA R DILUTJ IAADIADOO 31525 FREDERICK MACK 1 DON DON STREPTOCO CCUS GROUP A CONTRACEP S4993 [facility] TIVE 1 [facility] CONTROL COMPRE 84561 MEREDITH HARPER AUDIOMETR 1 JACQUE JACQUE Y THRESHOLD EVAL SP RECOGNIJ TYMPANOME 77623 MEREDITH HARPER TRY 1 JACQUE JACQUE ANESTHESI 26652 [facility] 1 ANESTH INTRAORAL OF THE WITH BLUE BIOPSY NOS LEVEL III 52791 [place] SURG 1 NANCI & ALEISHA PATHOLOGY DUBILIER GROSS&MONICA ROSCOPIC EXAM TONSILLEC 282 [facility] JENNIEFR 1 [facility] WITHOUT INC INC ADENOIDEC JENNIFER TONSILLEC 68903 [facility] JENNIFER 1 [facility] PRIMARY/S INC INC ECONDARY AGE 12/> IV [address]798 [facility] INFUSION 1 [facility] THERAPY INC INC PROPHYLAX IS/DX EA HOUR BLOOD 08020 [facility] COUNT 1 [facility] HEMATOCRI INC INC T GONADOTRO 91266 [facility] PIN 1 [facility] CHORIONIC INC INC QUALITATI VE BLOOD 89737 [facility] COUNT 1 [facility] HEMOGLOBI INC INC N IAADIADOO 21464 FREDERICK JINHENS 1 DON DON STREPTOCO CCUS GROUP A IAADIADOO 76867 FREDERICK MACK 1 DON DON STREPTOCO CCUS GROUP A IADNA 57490 [facility] NEISSERIA 1 [facility] GONORRHOE AE AMPLIFIED PROBE TQ CONTRACEP S4993 [facility] TIVE 1 [facility] CENTER CONTROL IADNA 71575 [facility] CHLAMYDIA 1 [facility] TRACHOMAT IS AMPLIFIED PROBE TQ URINE 40493 [facility] 1 [facility] CENTER VISUAL COLOR CMPRSN METHS OPHTH 85495 [facility] CABALLERO MEDICAL 0 VISION ANG XM&EVAL COMPRE NEW PT 1/> VST FITTING 39481 [facility] CABALLERO SPECTACLE 0 VISION ANG S XCPT APHAKIA MONOFOCAL SPHERE V2100 [facility] CABALLERO SINGLE 0 VISION ANG VISION PLANO +/- 4.00 PER LENS FRAMES V2020 [facility] CABALLERO PURCHASES 0 VISION ANG THER 03000 TRESSA BUSTILLOS PROPH/DX 0 ELMER ELMER NJX IV PUSH SINGLE/1S T SBST/DRUG DEEP D9220 TRESSA BUSTILLOS SEDATION/ 0 ELMER ELMER GENERAL ANESTHESI A-1ST 30 MINUTES ANESTHESI 14103 TRESSA BUSTILLOS A 0 ELMER ELMER EXTERNAL MIDDLE & INNER EAR W/BX NOS IAADIADOO 57406 FREDERICK MACK, 0 DON R DON R STREPTOCO CCUS GROUP A THER 13461 TRESSA BUSTILLOS PROPH/DX 0 , JUAN MARTINEZ NJX IV W W PUSH SINGLE/1S T SBST/DRUG DEEP D9220 TRESSA BUSTILLOS SEDATION/ 0 , JUAN MARTINEZ W W ANESTHESI A-1ST 30 MINUTES ORTHOPANT 36141 TRESSA BUSTILLOS OGRAM 0 , JUAN MARTINEZ W CONTRACEP S4993 [facility] TIVE 0 [facility] Encounters Encounter Start End Date Code Location Performer Type Date OFFICE 71135 Christine CHEEK 7 7 NARESH DOMÍNGUEZ T VISIT [facility] 15 MINUTES EMERGENCY 48254 MARCUS PEÑA 6 6 [facility]IC[facility] MODERATE SEVERITY EMERGENCY 18380 [facility] 6 6 [facility] LIMITED/M [facility]OR [facility] - 6 6 [facility] OUTPATIEN [facility] OFFICE 85075 [facility] LEONEL OUTALEAHEN 6 6 PHYSICIAN STALIN T VISIT S GROUP 10 MINUTES OFFICE 02170 [facility] LEONEL AUGUSTINEN 6 6 PHYSICIAN STALIN T NEW 10 S GROUP MINUTES EMERGENCY 72403 MARCUS LAZO 6 6 [facility]ICIAN [facility] VISIT MODERATE SEVERITY EMERGENCY 28728 [facility] 6 6 [facility] LOW/MODER SEVERITY HOSPITAL [facility] - 6 6 [facility]PATI[facility] LUTHER - 6 6 [facility] INPATIENT INC OFFICE 22821 [facility] SARAVIA OUTPATIEN 6 6 PHYSICIAN T VISIT S GROUP 15 MINUTES HOSPITAL [facility] - 6 6 [facility] OUTPATIEN [facility] OFFICE 39175 [facility] SARAVIA OUTPATIEN 6 6 PHYSICIAN T VISIT S GROUP 15 MINUTES OFFICE 22967 [facility] SARAVIA OUTPATIEN 6 6 PHYSICIAN PILLO T VISIT S GROUP 15 MINUTES HOSPITAL [facility] - 6 6 [facility] OUTPATIEN [facility] L[facility]HER - 6 6 [facility]PATI[facility] LUTHER - 6 6 [facility] 12774 [facility] SARAVIA OUTPATIEN 6 6 PHYSICIAN PILLO T VISIT S GROUP 15 MINUTES HOSPITAL [facility] - 6 6 [facility] OUTPATIEN INC T OFFICE 97890 [facility] SARAVIA OUTPATIEN 6 6 PHYSICIAN PILLO T VISIT S GROUP 15 MINUTES [facility] - 6 6 [facility] OUTPATIEN [facility] LUTHER - 5 5 [facility] OUTPATIEN INC T OFFICE 92741 A Vega CASTAÑEDA OUTPATIEN 5 5 NARESH DOMÍNGUEZ T VISIT PSC 15 MINUTES [facility] - 5 5 [facility] LUTHER - 5 5 [facility] T OFFICE 71672 [facility] MAJNIT OUTALEAHEN 5 5 PHYSICIAN PILLO T VISIT S GROUP 15 MINUTES OFFICE 87862 A [facility]ega CASTAÑEDA OUTPATIEN 5 5 NARESH DOMÍNGUEZ T VISIT PSC 15 MINUTES [facility]OSPITAL [facility] - 5 5 [facility] OFF[facility] 59877 [facility] MANJIT AUGUSTINEN 5 5 PHYSICIAN PILLO T VISIT S GROUP 15 MINUTES OFFICE 30256 A [facility] CASTAÑEDA OUTPATIEN 5 5 NARESH DOMÍNGUEZ T VISIT PSC 15 MINUTES HOSPITAL [facility] - 5 5 [facility] OUTPATIEN INC T OFFICE 22168 A [facility] CASTAÑEDA OUTPATIEN 5 5 NARESH DOMÍNGUEZ T VISIT PSC 15 MINUTES EMERGENCY 49086 MARCUS TRINIDAD 5 5 PHYSICIAN DEPARTMEN S, PLLC T VISIT MODERATE SEVERITY OFFICE 23356 [facility] MANJIT CHEEK 5 5 PHYSICIAN PILLO T VISIT S GROUP 15 MINUTES OFFICE 24861 A [facility]ega CASTAÑEDA OUTPATIEN 5 5 NARESH DOMÍNGUEZ T VISIT PSC 15 MINUTES OFFICE 00734 A Vega PAZ MADDY OUTPATIEN 5 5 NARESH DOMÍNGUEZ T VISIT PSC 15 MINUTES HOSPITAL [facility] - 5 5 [facility] OUTPATIEN INC T OFFICE 12836 A [facility]ega PAZ MADDY OUTPATIEN 5 5 NARESH DOMÍNGUEZ T VISIT PSC 15 MINUTES OFFICE 12840 A [facility]ega PAZ MADDY OUTPATIEN 5 5 NARESH DOMÍNGUEZ T VISIT PSC 15 MINUTES OFFICE 51783 A Vega PAZ MADDY OUTPATIEN 5 5 NARESH DOMÍNGUEZ T VISIT PSC 15 MINUTES OFFICE 30549 [facility] PETTEY OUTPATIEN 5 5 PHYSICIAN KRYSTA T NEW 30 S GROUP MINUTES OFFICE 95652 A [facility]ega PAZ MADDY OUTPATIEN 5 5 NARESH DOMÍNGUEZ T VISIT PSC 15 MINUTES OFFICE 27562 A Vega DA SILVA OUTPATIEN 5 5 NARESH EVANS T VISIT PSC 15 MINUTES OFFICE 22178 A [facility]ega PAZ MADDY OUTPATIEN 5 5 NARESH DOMÍNGUEZ T VISIT PSC 15 MINUTES OFFICE 73295 A [facility] CASTAÑEDA OUTPATIEN 5 5 NARESH DOMÍNGUEZ T VISIT PSC 15 MINUTES OFFICE 17273 A Vega PAZ MADDY OUTPATIEN 5 5 NARESH DOMÍNGUEZ T VISIT PSC 15 MINUTES OFFICE 80967 [facility] OUTPATIEN 5 5 Y T VISIT 5 HOSPITAL MINUTES OFFICE 99624 [facility] MIKY OUTPATIEN 5 5 NURSE T VISIT PRACTITIO 40 NER GR MINUTES HOSPITAL UNIVERSIT - 5 5 Y OUTPATIEN [facility]OSPITAL [facility] - 5 5 [facility] OUTPATIEN INC T OFFICE 72701 A Vega PAZ MADDY OUTPATIEN 5 5 NARESH DOMÍNGUEZ T VISIT PSC 25 MINUTES HOSPITAL [facility]HER - 5 5 [facility] OUTPATIEN INC T OFFICE 45214 Christine CASTAÑEDA OUTPATIEN 5 5 NARESH DOMÍNGUEZ T VISIT PSC 15 MINUTES OFFICE 24037 NOHEMI SMITH OUTPATIEN 5 5 MEDICAL GRE T VISIT SERV 15 FOUNDATIO MINUTES N OFFICE 58129 [facility] Y T VISIT 5 [facility] UNIVERSIT - 5 5 Y [facility] T OFFICE 97853 NOHEMI EPPERSONMEHDI OUTPATIEN 5 5 MEDICAL BRETT T VISIT SERV 15 FOUNDATIO MINUTES N OFFICE 32769 [facility] 5 5 Y T VISIT 5 [facility] UNIVERSIT - 5 5 Y [facility] T EMERGENCY 54216 NOHEMI SAINIALI NICOLAS 5 5 MEDICAL DEPARTMEN SERV T VISIT FOUNDATIO MODERATE N SEVERITY EMERGENCY 21867 UNIVERSIT 5 5 Y [facility] HOSPITAL T VISIT HIGH/URGE NT SEVERITY HOSPITAL UNIVERSIT - 5 5 Y [facility] HOSPITAL UNIVERSIT - 5 5 Y [facility] T OFFICE 65477 [facility] 5 Y T VISIT HOSPITAL 15 MINUTES OFFICE 43118 Christine CASTAÑEDA OUTPATIEN 5 5 NARESH DOMÍNGUEZ T VISIT PSC 15 MINUTES OFFICE 01276 NOHEMI SANTIZO OUTPATIEN 4 4 MEDICAL SRI T VISIT SERV 15 FOUNDATIO MINUTES N HOSPITAL UNIVERSIT - 4 4 Y [facility] T HOSPITAL CARDINAL - 4 4 ZANONI [facility] EMERGENCY 23356 NOHEMI FIELDS DEPT 4 4 MEDICAL HERBIE VISIT SERV HIGH FOUNDATIO SEVERITY& N THREAT FUNCJ OFFICE 15607 [facility] DE[facility] HLTH DEPT 10 LUPE LUPE MINUTES OFFICE 21784 MANJIT SARAVIA CONSULTAT 4 4 PILLO PILLO ION NEW/ESTAB PATIENT 40 MIN PERIODIC 40648 [facility] PREVENTIV [address] [facility] E MED EST HLTH DEPT HLTH DEPT PATIENT LUPE LUPE 18-39 YRS OFFICE 64704 FIELD AMB FIELD AMB OUTPATIEN 4 4 T VISIT 15 MINUTES OFFICE 43539 FIELD AMB FIELD AMB OUTPATIEN 4 4 T VISIT 15 MINUTES OFFICE 58039 MANJIT SARAVIA OUTPATIEN 4 4 P[facility] PILL[facility] T VISIT 15 MINUTES [facility] - [facility] 3 [facility] INPATIENT INC OFFICE 53124 MANJIT GREYE OUTPATIEN 3 3 PILLO PILLO T VISIT 15 MINUTES OFFICE 84470 MANJIT GREYE OUTPATIEN 3 3 PILLO PILLO T VISIT 15 MINUTES [facility] - [facility] 3 [facility] OUTPATIEN INC T OFFICE 36325 SARAVIA SARAVIA OUTPATIEN 3 3 PILLO PILLO T VISIT 15 MINUTES OFFICE 51919 SARAVIA SARAVIA OUTPATIEN 3 3 PILLO PILLO T VISIT 15 MINUTES OFFICE 94752 MANJIT GREYE OUTPATIEN 3 3 PILLO PILLO T VISIT 15 MINUTES OFFICE 10423 HARPEL HARPEL OUTPATIEN 3 3 GREGOR GREGOR T VISIT 15 MINUTES OFFICE 67991 SARAVIA SARAVIA OUTPATIEN 3 3 P[facility]O PILLO T VISIT 15 MINUTES [facility] - 3 3 [facility] OUTPATIEN INC T OFFICE 03050 SARAVIA SARAVIA OUTPATIEN 3 3 PILLO PILLO T VISIT 15 MINUTES OFFICE 88509 SARAVIA SARAVIA OUTPATIEN 3 3 PILLO PILLO T VISIT 15 MINUTES OFFICE 17548 FIELD AMB FIELD AMB OUTPATIEN 3 3 T VISIT 15 MINUTES OFFICE 13996 SARAVIA SARAVIA OUTPATIEN 3 3 PILLO PILLO T VISIT 15 MINUTES [facility] - 3 3 [facility] T OFFICE 89229 [facility] 3 3 [facility] P[facility] T VISIT 5 CLINIC OF MINUTES LISSETTE OFFICE 06941 FIELD AMB FIELD AMB OUTPATIEN 3 3 T VISIT 15 MINUTES OFFICE 40999 SARAVIA SARAVIA OUTPATIEN 3 3 PILLO PILLO T VISIT 15 MINUTES OFFICE 72279 SARAVIA SARAVIA OUTPATIEN 3 3 PILLO PILLO T VISIT 15 MINUTES OFFICE 68560 SARAVIA SARAVIA OUTPATIEN 3 3 PILLO PILLO T VISIT 15 MINUTES OFFICE 61574 [facility] OUTPATI[facility] 3 3 HEALTH PILLO T VISIT CLINIC OF 15 LISSETTE MINUTES EMERGENCY 45850 TAPAN STOUT 3 3 EMERGENCY [facility] DEPARTMEN SERVICES T VISIT HIGH/URGE NT SEVERITY EMERGENCY 60515 [facility] 3 3 [facility] DEPARTMEN INC T VISIT LOW/MODER SEVERITY [facility]OSPITAL [facility] - 3 3 [facility] OUTPATIEN INC T OFFICE 85305 MACK MACK OUTPATIEN 1 1 DON DON T VISIT 15 MINUTES OFFICE 42681 MACK MACK OUTPATIEN 1 1 DON DON T VISIT 15 MINUTES OFFICE 37504 [facility] SLOAN OUTPATIEN 1 1 [facility] T VISIT CENTER CENTER 10 MINUTES OFFICE 47539 MACK MACK OUTPATIEN 1 1 DON DON T VISIT 15 MINUTES EMERGENCY 95930 TAPAN LAN 1 1 EMERGENCY [facility] DEPARTMEN SERVICES T VISIT HIGH/URGE NT SEVERITY HOSPITAL [facility] - 1 1 [facility] OUTPATIEN INC T EMERGENCY 95174 [facility] 1 1 [facility] DEPARTMEN INC T VISIT LOW/MODER SEVERITY [facility]OSPITAL [facility] - 1 1 [facility] OUTPATIEN INC T [facility] - 1 1 [facility]IEN [facility] T OFFICE 37775 LEONEL CASTANEDA OUTPATIEN 1 1 STALIN Lopez NEW 45 MINUTES OFFICE 12253 [facility]ILS OUTPATIEN 1 1 DON DON T VISIT 15 MINUTES OFFICE 49389 FREDERICK MACK OUTPATIEN 1 1 DON DON T VISIT 15 MINUTES PERIODIC 22436 [facility] SLOAN PREVENTIV 1 1 [facility] CENTER PATIENT 12-17YRS OFFICE 09603 YARED MACKS, OUTPATIEN 0 0 DON R DON R T VISIT 15 MINUTES OFFICE 35231 FREDERICK MACK, OUTPATIEN 0 0 DON R DON R T VISIT 15 MINUTES OFFICE 42106 TRESSA BUSTILLOS OUTPATIEN 0 0 , JUAN MARTINEZ 10 W W MINUTES OFFICE 60564 FREDERICK MACK, OUTPATIEN 0 0 DON R DON R T VISIT 15 MINUTES OFFICE [id number] [facility] 0 0 Slated T [facility] CENTER 10 MINUTES
--- OUTSIDE RECORDS SUMMARY | 2016-11-28 04:23 | External Medical Summary Rpt ---
Demographics Preferred Language Montenegrin Marital Status Unknown Catholic Affiliation Unknown Race Unknown Ethnic Group Unknown Author Author , Organization [employer] Address Unknown Phone Unavailable Purpose Continuity of Care Document - through 2016 Immunization No patient found.
--- OUTSIDE RECORDS SUMMARY | 2016-11-28 04:23 | External Medical Summary Rpt ---
Author Author [employer], [employer] Organization [employer] Address Unknown Phone Unavailable Results Treponema pallidum IgG Ab [Presence] in Serum by Immunoassay Observa Value Referen Units Interpr Notes Date tion ce etation Range COLLECT D. No No No No Mar 21 OR BRADFOR informa informa informa informa 2014 D RN tion in tion in tion in tion in 12:30 source source source source PM data data data data ETHNICI WHITE No No No No Mar 21 TY informa informa informa informa 2014 tion in tion in tion in tion in 12:30 source source source source PM data data data data PURPOSE OTHER No No No No Mar 21 OF informa informa informa informa 2014 EXAM tion in tion in tion in tion in 12:30 source source source source PM data data data data SPECIME BLOOD No No No No Mar 21 N informa informa informa informa 2014 SOURCE tion in tion in tion in tion in 12:30 source source source source PM data data data data CHART NA No No No No Mar 21 NUMBER informa informa informa informa 2014 tion in tion in tion in tion in 12:30 source source source source PM data data data data Trepone NON-LAURA No No No METHOD Mar [address] informa informa informa OF 2014 pallidu tion in tion in tion in ANALYSI 12:30 m IgG source source source S: PM Ab data data data EIANORM [Presen AL ce] in RANGE: Serum NON-LAURA by CTIVE\. Immunoa br\This ssay report contain s patient informa tion that must be protect ed in accorda nce with the Health Insuran ce Portabi lity and Account ability Act. Treponema pallidum IgG Ab [Presence] in Serum by Immunoassay Observa Value Referen Units Interpr Notes Date tion ce etation Range COLLECT D. No No No No Mar 21 OR BRADFOR informa informa informa informa 2014 D RN tion in tion in tion in tion in 12:30 source source source source PM data data data data ETHNICI WHITE No No No No Mar 21 TY informa informa informa informa 2014 tion in tion in tion in tion in 12:30 source source source source PM data data data data PURPOSE OTHER No No No No Mar 21 OF informa informa informa informa 2014 EXAM tion in tion in tion in tion in 12:30 source source source source PM data data data data SPECIME BLOOD No No No No Mar 21 N informa informa informa informa 2014 SOURCE tion in tion in tion in tion in 12:30 source source source source PM data data data data CHART NA No No No No Mar 21 NUMBER informa informa informa informa 2014 tion in tion in tion in tion in 12:30 source source source source PM data data data data Trepone Pending No No No \.br\Mar 21 ma informa informa informa is 2014 pallidu tion in tion in tion in report 12:30 m IgG source source source contain PM Ab data data data s [Presen patient ce] in Serum informa by tion Immunoa that ssay must be protect ed in accorda nce with the Health Insuran ce Portabi lity and Account ability Act. 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 in tion in tion in tion in 10:15 source source source source AM data data data data ETHNICI WHITE, No No No No Mar 11 TY NON-HIS informa informa informa informa 2014 PANIC tion in tion in tion in tion in 10:15 source source source source AM data data data data KIT 11-30-1 No No No No Mar 11 EXPIRAT 4 informa informa informa informa 2014 ION tion in tion in tion in tion in 10:15 DATE source source source source AM data data data data SYMPTOM NO No No No No Mar 11 S informa informa informa informa 2014 tion in tion in tion in tion in 10:15 source source source source AM data data data data REASON REVISIT No No No No Mar 11 FOR /ANNUAL informa informa informa informa 2014 REQUEST FAMILY tion in tion in tion in tion in 10:15 source source source source AM PLANNIN data data data data G VISIT SPECIME FEMALE No No No No Mar 11 N ENDOCER informa informa informa informa 2014 SOURCE VICAL tion in tion in tion in tion in 10:15 source source source source AM data data data data PREGNAN NO No No No No Mar 11 T informa informa informa informa 2014 tion in tion in tion in tion in 10:15 source source source source AM data data data data CHART NA No No No No Mar 11 NUMBER informa informa informa informa 2014 tion in tion in tion in tion in 10:15 source source source source AM data data data data Chlamyd NEGATIV No No No NEGATIV Mar 11 ia E informa informa informa E 2014 trachom tion in tion in tion in RESULT= 10:15 atis source source source WITHIN AM rRNA data data data NORMAL [Presen ce] in LIMITSP Unspeci OSITIVE fied specime RESULT= n by Probe & ABNORMA target LEQUIVO CAMILLA amplifi RESULT= cation method INDETER MINATEU NSATISF ACTORY RESULT= INVALID Neisser POSITIV No No No NEGATIV Mar 11 ia E informa informa informa E 2014 gonorrh tion in tion in tion in RESULT= 10:15 oeae source source source WITHIN AM rRNA data data data NORMAL [Presen ce] in LIMITSP Unspeci OSITIVE fied specime RESULT= n by Probe & ABNORMA target LEQUIVO CAMILLA amplifi RESULT= cation method INDETER MINATEU NSATISF ACTORY RESULT= INVALID THE APTIMA COMBO 2 ASSAY IS NOT INTENDE D FOR THE EVALUAT ION OF SUSPECT EDSEXUA L ABUSE OR FOR OTHER MEDICO- LEGAL INDICAT IONS. FOR THOSE PATIENT S FORWHOM A FALSE POSITIV E RESULT MAY HAVE ADVERSE PSYCHO- SOCIAL IMPACT, THE CDCRECO MMENDS RETESTI NG.\.br \This report contain s patient informa tion that must be protect ed in accorda nce with the Health Insuran ce Portabi lity and Account ability Act. 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 in tion in tion in tion in 10:15 source source source source AM data data data data ETHNICI WHITE, No No No No Mar 11 TY NON-HIS informa informa informa informa 2014 PANIC tion in tion in tion in tion in 10:15 source source source source AM data data data data KIT 11-30-1 No No No No Mar 11 EXPIRAT 4 informa informa informa informa 2014 ION tion in tion in tion in tion in 10:15 DATE source source source source AM data data data data SYMPTOM NO No No No No Mar 11 S informa informa informa informa 2014 tion in tion in tion in tion in 10:15 source source source source AM data data data data REASON REVISIT No No No No Mar 11 FOR /ANNUAL informa informa informa informa 2014 REQUEST FAMILY tion in tion in tion in tion in 10:15 source source source source AM PLANNIN data data data data G VISIT SPECIME FEMALE No No No No Mar 11 N ENDOCER informa informa informa informa 2014 SOURCE VICAL tion in tion in tion in tion in 10:15 source source source source AM data data data data PREGNAN NO No No No No Mar 11 T informa informa informa informa 2014 tion in tion in tion in tion in 10:15 source source source source AM data data data data CHART NA No No No No Mar 11 NUMBER informa informa informa informa 2014 tion in tion in tion in tion in 10:15 source source source source AM data data data data Chlamyd Pending No No No No Mar 11 ia informa informa informa informa 2014 trachom tion in tion in tion in tion in 10:15 atis source source source source AM rRNA data data data data [Presen ce] in Unspeci fied specime n by Probe & target amplifi cation method Neisser Pending No No No \.br\Th Mar 11 ia informa informa informa is 2014 gonorrh tion in tion in tion in report 10:15 oeae source source source contain AM rRNA data data data s [Presen patient ce] in Unspeci informa fied tion specime that n by must be Probe & target protect ed in amplifi accorda cation nce method with the Health Insuran ce Portabi lity and Account ability Act. Reagin Ab [Presence] in Unspecified specimen by VDRL Observa Value Referen Units Interpr Notes Date tion ce etation Range COLLECT NA No No No No Feb 3 OR informa informa informa informa 2011 tion in tion in tion in tion in 12:16 source source source source PM data data data data ETHNICI WHITE No No No No Feb 3 TY informa informa informa informa 2011 tion in tion in tion in tion in 12:16 source source source source PM data data data data PURPOSE DIAGNOS No No No No Feb 3 OF TIC informa informa informa informa 2011 EXAM tion in tion in tion in tion in 12:16 source source source source PM data data data data SPECIME BLOOD No No No No Feb 3 N informa informa informa informa 2011 SOURCE tion in tion in tion in tion in 12:16 source source source source PM data data data data CHART NA No No No No Feb 3 NUMBER informa informa informa informa 2011 tion in tion in tion in tion in 12:16 source source source source PM data data data data Reagin NON-LAURA No No No METHOD Feb 3 [address] informa informa informa OF 2010 [Presen tion in tion in tion in ANALYSI 12:16 ce] in source source source S: PM Unspeci data data data VDRLNOR fied MAL specime RANGE: n by NON VDRL REACTIV E\.br\T his report contain s patient informa tion that must be protect ed in accorda nce with the Health Insuran Portabi lity and Account ability Act. CHLAMYDIA AND GONORRHEA TESTING Observa Value Referen Units Interpr Notes Date tion ce etation Range COLLECT NA No No No No Feb 3 OR informa informa informa informa 2010 tion in tion in tion in tion in 12:16 source source source source PM data data data data ETHNICI WHITE, No No No No Feb 3 TY NON-HIS informa informa informa informa 2011 PANIC tion in tion in tion in tion in 12:16 source source source source PM data data data data KIT 11-30-1 No No No No Mar 02 EXPIRAT 1 informa informa informa informa 2011 ION tion in tion in tion in tion in 12:16 DATE source source source source PM data data data data SYMPTOM NO No No No No Feb 3 S informa informa informa informa 2011 tion in tion in tion in tion in 12:16 source source source source PM data data data data REASON VOLUNTE No No No No Mar 02 FOR ER/MEDI informa informa informa informa 2011 REQUEST CAMILLA tion in tion in tion in tion in 12:16 PROBLEM source source source source PM data data data data SPECIME URINE No No No No Mar 02 N informa informa informa informa 2011 SOURCE tion in tion in tion in tion in 12:16 source source source source PM data data data data PREGNAN NO No No No No Mar 02 T informa informa informa informa 2011 tion in tion in tion in tion in 12:16 source source source source PM data data data data CHART NA No No No No Mar 02 NUMBER informa informa informa informa 2011 tion in tion in tion in tion in 12:16 source source source source PM data data data data Chlamyd NEGATIV No No No NEGATIV Mar 02 ia E informa informa informa E 2011 trachom tion in tion in tion in RESULT= 12:16 atis source source source WITHIN PM rRNA data data data NORMAL [Presen ce] in LIMITSP Unspeci OSITIVE fied specime RESULT= n by Probe & ABNORMA target LEQUIVO CAMILLA amplifi RESULT= cation method INDETER MINATEU NSATISF ACTORY RESULT= INVALID Neisser NEGATIV No No No NEGATIV Mar 02 ia E informa informa informa E 2011 gonorrh tion in tion in tion in RESULT= 12:16 oeae source source source WITHIN PM rRNA data data data NORMAL [Presen ce] in LIMITSP Unspeci OSITIVE fied specime RESULT= n by Probe & ABNORMA target LEQUIVO CAMILLA amplifi RESULT= cation method INDETER MINATEU NSATISF ACTORY RESULT= INVALID EFFECTI VE NOVEMBE R 2009: THE APTIMA COMBO 2 NUCLEIC ACIDAMP LIFICAT ION ASSAY IS NOT INTENDE D FOR THE EVALUAT ION OFSUSPE CTED SEXUAL ABUSE OR FOR OTHER MEDICO- LEGAL INDICAT IONS.FA LSE POSITIV E RESULTS ARE POSSIBL E.\.br\ This report contain s patient informa tion that must be protect ed in accorda nce with the Health Insuran ce Portabi lity and Account ability Act.
--- OUTSIDE RECORDS SUMMARY | 2016-11-28 04:23 | External Medical Summary Rpt ---
[...] OR COCHRAN informa informa informa informa 2014 SHUCKER tion in tion in tion in tion [...] OR COCHRAN informa informa informa informa 2014 SHUCKER tion in tion in tion in tion [...]
--- OUTSIDE RECORDS SUMMARY | 2016-11-28 04:23 | External Medical Summary Rpt ---
Demographics Preferred Language Nigerian Marital Status Unknown Mormonism Affiliation Unknown Race Unknown Ethnic Group Unknown Author Author , Organization [employer] Address Unknown Phone Unavailable Purpose Continuity of Care Document - through 2016 Immunization No patient found.
--- OUTSIDE RECORDS SUMMARY | 2016-11-28 04:30 | External Medical Summary Rpt ---
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 013 E FOR ed [...] UNK .030 ed C 12:35 GRAVITY URINE -08-2 NEGATIV NEG complet BLOOD 013 E ed [...] TY 011 NON-HIS ed 12:16 PANIC KIT 11-30-1 complet EXPIRAT 011 1 ed ION 12:16 DATE SYMPTOM 08-03-2 NO complet S 011 ed 12:16 REASON [...] Procedure DOS Code Location Performer Comment COMPRE 48598 LEONEL CASTANEDA AUDIOMETR 6 STALIN STALIN Y THRESHOLD EVAL SP RECOGNIJ TYMPANOME 50070 LEONEL CASTANEDA TRY 6 STALIN STALIN DISTORT 17890 LEONEL CASTANEDA PRODUCT 6 STALIN STALIN EVOKED OTOACOUST IC EMISNS LIMITD ANES IPER 20876 [facility] LWR ABD 6 ANESTH REE W/LAPS OF THE TUBAL BLUE LIGATION/ TRANSECT OCCLUSION [id number] [facility] TANNER 6 [facility] FALLOPIAN INC INC TUBES EXTRALUM DEV OPEN REPAIR [id number] [facility] PERINEUM 6 [facility] SKIN INC INC EXTERNAL APPROACH LAPAROSCO 24433 [facility] PY W/PLMT 6 PHYSICIAN PILLO S GROUP OCCLUSION DEVICE OVIDUCTS VAGINAL 76261 [facility] MANJIT DELIVERY 6 PHYSICIAN PILLO ONLY S GROUP W/POSTPAR ALLAN CARE NEURAXIAL 07021 [facility] FEEBACK LABOR 6 ANESTH REE ANALG/ANE OF THE S PLND BLUE VAGINAL DELIVERY 26515 PAOLA RECINOS NONSTRESS 6 BONITA DYER BLOOD 35114 [facility] COUNT 6 [facility] COMPLETE INC INC AUTO&AUTO DIFRNTL WBC COLLECTIO 42728 [facility] N VENOUS 6 [facility] BLOOD INC INC VENIPUNCT URE DRUG TST G0477 [facility] MAN[facility] PRESUMP;C 6 PHYSICIAN PBL BEING S GROUP READ DC OPT OBV ONLY DRUG TST G0477 [facility] MANJIT PRESUMP;C 6 PHYSICIAN PBL BEING S GROUP READ DC OPT OBV ONLY DRUG TST G0477 [facility] PRESUMP;C 6 [facility] PBL BEING INC INC READ DC OPT OBV ONLY URNLS DIP 59269 [facility] 6 [facility] STICK/TAB INC [place] [address] L[facility] INFUSION 6 [facility] THERAPY/P INC INC ROPHYLAXI S /DX 1ST TO 1 HR 63375 [facility] MANJIT NONSTRESS 6 PHYSICIAN PILLO TEST S GROUP CULTURE 84426 [facility] BACTERIAL 6 [facility] INC [place] [address] [facility] INFUSION 6 [facility] THERAPY/P INC INC ROPHYLAXI S /DX 1ST TO 1 HR URNLS DIP 26723 [facility] 6 [facility] STICK/TAB INC INC LET REAGENT AUTO MICROSCOP Y DRUG TST G0477 [facility] PRESUMP;C 6 [facility] PBL BEING INC INC READ DC OPT OBV ONLY CULTURE 78596 [facility] BACTERIAL 6 [facility] INC INC QUANTTATI VE COLONY COUNT URINE 87854 [facility] NONSTRESS 6 [facility] TEST INC INC 04497 [facility] MANJIT NONSTRESS 6 PHYSICIAN PILLO TEST S GROUP URNLS DIP 86035 [facility] 6 [facility] STICK/TAB INC INC LET REAGENT AUTO MICROSCOP Y DRUG TST G0477 L[facility] PRESUMP;C 6 [facility] PBL BEING INC INC READ DC OPT OBV ONLY PARTICLE 39464 [facility] AGGLUTINA 6 [facility] TION INC INC SCREEN EACH ANTIBODY HANDLG&/O 79217 [facility] Mensah CONVEY 6 PHYSICIAN PILLO OF SPEC S GROUP FOR TR OFFICE TO LAB 99002 [facility] S[facility] NONSTRESS 6 [facility] TEST INC INC EVAL C/V 77136 [facility] AMNIOTIC 6 [facility] FLUID INC INC PROTEIN QUAL EA SPECIMEN URNLS DIP 41669 [facility] 6 [facility] STICK/TAB INC INC LET REAGENT AUTO MICROSCOP Y 21355 [facility] SARAVIA NONSTRESS 5 PHYSICIAN PILLO TEST S GROUP BASIC 88189 [facility] METABOLIC 5 [facility] PANEL INC INC CALCIUM TOTAL THER 14093 [facility] PROPH/DX 5 [facility] NJX IV INC INC PUSH SINGLE/1S T SBST/DRUG BLOOD 01452 [facility] COUNT 5 [facility] COMPLETE INC INC AUTO&AUTO DIFRNTL WBC 90292 [facility] S[facility] NONSTRESS 5 [facility] TEST INC INC TOBACCO 77203 [facility] USE 5 [facility] CESSATION INC INC INTERMEDI ATE 3-10 MINUTES FTL 85315 [facility] FIBRONECT 5 [facility] IN INC INC CERVICOVA G SECRETION S SEMI-MICHELE URNLS DIP 36123 [facility] 5 [facility] STICK/TAB INC INC LET REAGENT AUTO MICROSCOP Y CULTURE 81723 [facility] BACTERIAL 5 [facility] INC INC QUANTTATI VE COLONY COUNT URINE 21769 [facility] S[facility] NONSTRESS 5 [facility] TEST INC INC GLUCOSE 42954 [facility] SARAVIA POST 5 PHYSICIAN PILLO GLUCOSE S GROUP DOSE INF AGT G0432 [facility] AB DETECT 5 [facility] EIA TECH INC INC HIV-1&/HI V-2 SCR COLLECTIO 33267 [facility] BLUFFS N 5 PHYSICIAN PHYSICIAN CAPILLARY S GROUP S GROUP BLOOD SPECIMEN OBSTETRIC 89502 [facility] PANEL 5 [facility] INC INC COLLECTIO 31951 [facility] N VENOUS 5 [facility] BLOOD INC INC VENIPUNCT URE URNLS DIP 79871 [facility] 5 [facility] STICK/TAB INC INC LET REAGENT AUTO MICROSCOP Y 82048 [facility] S[facility] NONSTRESS 5 [facility] TEST INC INC 26134 [facility] MANJIT NONSTRESS 5 [place] [address] [facility] 5 MEDICAL LUZ UTERUS IMAGING LIMITED ASS 1/> FETUSES US PREG 11426 [facility] UTERUS 5 MEDICAL LUZ REAL TIME IMAGING W/IMAGE ASS DCMTN TRANSVAG US PREG 50032 [facility] ALL UTERUS 5 MEDICAL AFTER 1ST IMAGING TRIMEST ASS 1/ GESTATION US PREG 64924 [facility] UTERUS 5 [facility] W/[place] [address] [facility] ALL 5 MEDICAL UTERUS IMAGING LIMITED ASS /> FETUSES OBSERVATI 35609 [facility] ON CARE 5 MEDICAL DISCHARGE SERV FOUNDATIO MANAGEMEN N T LOCALIZE 93051 [facility] CEREBRAL 5 MEDICAL SEIZURE SERV CABLE/RAD FOUNDATIO IO N EEG/VIDEO LOCALIZE 23126 [facility] CEREBRAL 5 MEDICAL SEIZURE SERV CABLE/RAD FOUNDATIO IO N EEG/VIDEO INITIAL 14197 [facility] PANTOJA OBSERVATI 5 MEDICAL ON SERV CARE/DAY FOUNDATIO 50 N MINUTES LOCALIZE 77205 [facility] CEREBRAL 5 MEDICAL SEIZURE SERV CABLE/RAD FOUNDATIO IO N EEG/VIDEO US PREG 91496 [facility] UTERUS 5 MEDICAL LUZ REAL TIME IMAGING W/IMAGE ASS DCMTN TRANSVAG IADNA 86903 [facility] ER JR ANTHONY TRACHOMAT IS AMPLIFIED PROBE TQ CYTP C/V 57026 [facility] AUTO THIN [facility] ER JR ANTHONY LYR PREPJ SCR MNL RESCR PHYS IADNA 92601 [facility] NEISSERIA [facility] ER JR ANTHONY GONORRHOE AE AMPLIFIED PROBE TQ URINE 50487 A Vega PAZ MADDY 5 NARESH DOMÍNGUEZ TEST PSC VISUAL COLOR CMPRSN METHS IAADIADOO 06834 Christine EVANS STREPTOCO PSC CCUS GROUP A NEEDLE 68697 [facility] SCRUGG[facility] HOLLY EMG EA 5 N EXTREMTY NEUROLOGY W/PARASPI NL AREA COMPLETE NERVE 90120 [facility] S[facility] HOLLY CONDUCTIO 5 N N STUDIES NEUROLOGY 5-6 STUDIES ELECTROEN 12363 [facility] CEPHALOGR 5 [facility] AM W/REC INC INC AWAKE&ASL EEP THERAPEUT 50539 [facility] IC PX 1/> 5 [facility] AREAS INC INC EACH 15 MIN EXERCISES APPLICATI 65903 [facility] ON 5 [facility] MODALITY INC INC 1/> AREAS HOT/COLD PACKS APPL 34568 [facility] MODALITY 5 [facility] 1/> AREAS INC INC ELEC STIMJ UNATTENDE D APPL 18161 [facility] S[facility] MODALITY 5 [facility] 1/> AREAS INC INC ELEC STIMJ UNATTENDE D APPLICATI 43557 [facility] ON 5 [facility] MODALITY INC INC 1/> AREAS HOT/COLD PACKS MANUAL 94099 [facility] THERAPY 5 [facility] TQS 1/> INC INC REGIONS EACH 15 MINUTES THERAPEUT 34084 [facility] IC PX 1/> 5 [facility] AREAS INC INC EACH 15 MIN EXERCISES THERAPEUT 70069 [facility] IC PX 1/> 5 [facility] AREAS INC INC EACH 15 MIN EXERCISES MANUAL 84979 [facility] THERAPY 5 [facility] TQS 1/> INC INC REGIONS EACH 15 MINUTES APPLICATI 45363 [facility] ON 5 [facility] MODALITY INC INC 1/> AREAS HOT/COLD PACKS APPL 38901 [facility] MODALITY 5 [facility] 1/> AREAS INC INC ELEC STIMJ UNATTENDE D APPL 33447 [facility] MODALITY 5 [facility] 1/> AREAS INC INC ELEC STIMJ UNATTENDE D THERAPEUT 24173 [facility] IC PX 1/> 5 [facility] AREAS INC INC EACH 15 MIN EXERCISES APPLICATI 72195 [facility] ON 5 [facility] MODALITY INC INC 1/> AREAS HOT/COLD PACKS PHYSICAL 41862 [facility] THERAPY 5 [facility] EVALUATIO INC INC N RADEX 41107 [facility] SPINE 5 Y Y [facility] 4 OR 5 VIEWS CERVICAL L0174 [facility] CO[facility]AR 5 BRACING, BRACING, SEMI-RIGI INC INC D FOAM THOR EXT PREFAB RADEX 39765 [place] SULY SPINE 5 MEDICAL MARIAH CERVICAL SERV 2 OR 3 FOUNDATIO VIEWS N RADEX 35617 [facility] 5 Y Y MINIMUM 3 HOSPITAL HOSPITAL VIEWS SBSQ 83682 [facility] 4 MEDICAL JERSON CARE/DAY SERV 25 FOUNDATIO MINUTES N SBSQ 97994 [facility] 4 MEDICAL JERSON CARE/DAY SERV 25 FOUNDATIO MINUTES N SBSQ 13038 [place] [address] MEDICAL NAN CARE/DAY SERV 25 FOUNDATIO MINUTES N SBSQ 03103 [place] [address] MEDICAL NAN CARE/DAY SERV 25 FOUNDATIO MINUTES N RADIOLOGI 48583 [facility] [place] RADMANESH C 4 RADIOLOGY SHA EXAMINATI ON KNEE 1/2 VIEWS RADEX 38123 [facility] [place] JUAN PABLO SPINE 4 RADIOLOGY III LOLIS CERVICAL 2 OR 3 VIEWS SBSQ 60863 [facility] 4 MEDICAL JERSON CARE/DAY SERV 25 FOUNDATIO MINUTES N RADEX 49341 [facility] 4 MEDICAL Y JUS MINIMUM 3 SERV VIEWS FOUNDATIO N SBSQ 47009 [facility] 4 MEDICAL ZANE CARE/DAY SERV 25 FOUNDATIO MINUTES N SBSQ 67984 [facility] 4 MEDICAL ZANE CARE/DAY SERV 25 FOUNDATIO MINUTES N SBSQ 89576 [place] [address] MEDICAL NAN CARE/DAY SERV 25 FOUNDATIO MINUTES N SBSQ 82330 [place] [address] MEDICAL NAN CARE/DAY SERV 25 FOUNDATIO MINUTES N SWALLOWIN 75080 [facility] [place] G FUNCJ 4 RADIOLOGY LD IV ALL W/CINERAD IOGRAPY/V IDRADIOG SBSQ 13550 [place] [address] MEDICAL DANNIE CARE/DAY SERV 25 FOUNDATIO MINUTES N SBSQ 14292 [place] [address] MEDICAL DANNIE CARE/DAY SERV 25 FOUNDATIO MINUTES N SBSQ 27206 [place] [address] MEDICAL DANNIE CARE/DAY SERV 25 FOUNDATIO MINUTES N SBSQ 21920 [place] [address] MEDICAL DANNIE CARE/DAY SERV 25 FOUNDATIO MINUTES N SBSQ 69617 [place] [address] MEDICAL DANNIE CARE/DAY SERV 25 FOUNDATIO MINUTES N SBSQ 15286 [place] [address] MEDICAL DANNIE CARE/DAY SERV 25 FOUNDATIO MINUTES N INITIAL 93930 [place] [address] MEDICAL DANNIE CARE/DAY SERV 70 FOUNDATIO MINUTES N SBSQ 20062 [place] [address] MEDICAL LISSETTE CARE/DAY SERV 25 FOUNDATIO MINUTES N SBSQ 03692 [place] [address] MEDICAL LISSETTE CARE/DAY SERV 25 FOUNDATIO MINUTES N DUP-SCAN 05187 [place] ENDEAN XTR VEINS 4 MEDICAL JERSON COMPLETE SERV FOUNDATIO BILATERAL N STUDY SBSQ 25101 [facility] 4 MEDICAL CHR CARE/DAY SERV 15 FOUNDATIO MINUTES N SBSQ 54207 [facility] 4 MEDICAL CHR CARE/DAY SERV 15 FOUNDATIO MINUTES N RADIOLOGI 97796 [place] MITCHELL C 4 MEDICAL MONICA EXAMINATI SERV ON CHEST FOUNDATIO SINGLE N VIEW FRONTAL RADEX 59234 [place] GERONIMO ABDOMEN 1 4 MEDICAL SCO SERV ANTEROPOS FOUNDATIO TERIOR N VIEW SWALLOWIN 69051 [place] DISANTIS G FUNCJ 4 MEDICAL JOHN W/CINERAD SERV IOGRAPY/V FOUNDATIO IDRADIOG N RADIOLOGI 58896 [place] LINTON MADDY C 4 MEDICAL EXAMINATI SERV ON CHEST FOUNDATIO SINGLE N VIEW FRONTAL SBSQ 42767 [facility] 4 MEDICAL CHR CARE/DAY SERV 25 FOUNDATIO MINUTES N SBSQ 20892 [facility] 4 MEDICAL CARE/DAY SERV 25 FOUNDATIO MINUTES N RADEX 51588 [place] ALEIDA HAND 4 MEDICAL FRA MINIMUM 3 SERV VIEWS FOUNDATIO N SBSQ 29009 [place] [facility] 4 MEDICAL CARE/DAY SERV 25 FOUNDATIO MINUTES N RADEX 82771 [place] SZABUNIO SPINE 4 MEDICAL MAR CERVICAL SERV 2 OR [address] [place] [address] [place] HEBERT HEAD/BRAI 4 MEDICAL MADDY N W/O SERV CONTRAST FOUNDATIO MATERIAL N RADIOLOGI 65621 [place] THIAGO SAYRA C 4 MEDICAL EXAMINATI SERV ON CHEST FOUNDATIO SINGLE N VIEW FRONTAL RADIOLOGI 10667 [place] SEANGUROVSK C 4 MEDICAL AYA MAR EXAMINATI SERV ON CHEST FOUNDATIO SINGLE N VIEW FRONTAL SBSQ 60789 [facility] 4 MEDICAL CHR CARE/DAY SERV 25 FOUNDATIO MINUTES N RADIOLOGI 05180 [place] MADDY C 4 MEDICAL EXAMINATI SERV ON CHEST FOUNDATIO SINGLE N VIEW FRONTAL RADIOLOGI 44606 [place] MITCHELL C 4 MEDICAL MONICA EXAMINATI SERV ON CHE[place] [address] [place] RASLAU CERVICAL 4 MEDICAL FLA SPINE W/O SERV CONTRAST FOUNDATIO MATERIAL N LEVEL III 15719 [facility] SURG Y OF JUL PATHOLOGY [facility] GROSS&MONICA ROSCOPIC EXAM ANESTHESI 28233 [place] LANDRUM A 4 MEDICAL DUN EXTENSIVE SERV SPINE & FOUNDATIO SPINAL N CORD ARTHRD 77109 [place] SMITH ANT 4 MEDICAL GRE INTERDY SERV CERVCL FOUNDATIO BELW C2 N EA ADDL NTRSPC ARTHRT 15598 [place] MANDIE KNE 4 MEDICAL BRETT W/EXPL SERV DRG/RMVL FOUNDATIO FB N ANTERIOR 18149 [place] SMITH INSTRUMEN 4 MEDICAL GRE TATION SERV 2-3 FOUNDATIO VERTEBRAL N SEGMENTS APPLICATI 72089 [place] SMITH ON 4 MEDICAL GRE INTERVERT SERV EBRAL FOUNDATIO BIOMECHAN N ICAL DEVICE RADEX 75319 [place] SERENA SPINE 1 4 MEDICAL YFN VIEW SERV SPECIFY FOUNDATIO LEVEL N ARTHRD 59097 [place] SMITH ANT 4 MEDICAL GRE INTERBODY SERV FOUNDATIO DECOMPRES N S CERVICAL BELW C2 RADEX 91152 [place] ALEIDA SPINE 1 4 MEDICAL FRA VIEW SERV SPECIFY FOUNDATIO LEVEL N RADEX 74705 [place] THIAGO SAYRA SPINE 1 4 MEDICAL VIEW SERV SPECIFY FOUNDATIO LEVEL N RADEX 02166 [place] THIAGO SAYRA SPINE 4 MEDICAL CERVICAL SERV 2 OR 3 FOUNDATIO VIEWS N SBSQ 02116 [place] [facility] 4 MEDICAL ANT CARE/DAY SERV 35 FOUNDATIO MINUTES N INITIAL 84824 [place] [facility] 4 MEDICAL LISSETTE CARE/DAY SERV 70 FOUNDATIO MINUTES N RADEX 46047 [place] MONTGOMER ELBOW 4 MEDICAL Y JUS COMPLETE SERV MINIMUM 3 FOUNDATIO VIEWS N RADEX 45982 [place] MONTGOMER HAND 4 MEDICAL Y JUS MINIMUM [address] [place] [address] [place] ANGIOGRAP 4 MEDICAL MARIAH HY NECK SERV W/CONTRAS [place]OUNDAT[place] T/[place] [address] [place] AYOOB AND ANGIOGRAP 4 MEDICAL HY CHEST SERV W/CONTRAS [place] [address] [place] AYOOB AND CERVICAL 4 MEDICAL SPINE W/O SERV CONTRAST FOUNDATIO MATERIAL N RADIOLOGI 65787 [place] MONTGOMER C 4 MEDICAL Y JUS EXAMINATI SERV ON FEMUR FOUNDATIO 2 VIEWS N RADEX 45231 [place] MONTGOMER ANKLE 4 MEDICAL Y JUS COMPLETE SERV MINIMUM 3 FOUNDATIO VIEWS N RADEX 60170 [place] MONTGOMER FOOT 4 MEDICAL Y JUS COMPLETE SERV MINIMUM 3 FOUNDATIO VIEWS N AMB A0431 AIR AIR SERVICE 4 METHODS METHODS CONVNTION [facility] AIR SRVC TRANSPORT [address] RADIOLOGI 13475 [place] MONTGOMER C 4 MEDICAL Y JUS EXAMINATI SERV ON KNEE [address] [place] [address] [place] AYOOB AND THORACIC 4 MEDICAL SPINE W/O SERV CONTRAST FOUNDATIO MATERIAL N US CHEST 47052 [place] DONNIE REAL TIME 4 MEDICAL HERBIE W/IMAGE SERV DOCUMENTA FOUNDATIO TION N RADIOLOGI 57748 [place] MONTGOMER C 4 MEDICAL Y JUS EXAMINATI SERV ON CHEST FOUNDATIO SINGLE N VIEW FRONTAL RADEX 59259 [place] TERIGOMER HUMERUS 4 MEDICAL Y JUS MINIMUM 2 SERV VIEWS FOUNDATIO N RADEX 26555 [place] TERIGOMER FOREARM 2 4 MEDICAL Y JUS VIEWS SERV FOUNDATIO N RADEX 47918 [place] TERIGOMER WRIST 4 MEDICAL Y JUS COMPLETE SERV MINIMUM 3 FOUNDATIO VIEWS N ECHO 18384 [place] DONNIE TRANSTHOR 4 MEDICAL HERBIE C R-T 2D SERV W/WO FOUNDATIO M-MODE N REC F-UP/LMTD CT LUMBAR 28759 [place] AYOOB AND SPINE 4 MEDICAL W/O SERV CONTRAST FOUNDATIO MATERIAL N MRI 34126 [place] FLORIN ELBERT SPINAL 4 MEDICAL CANAL SERV CERVICAL FOUNDATIO W/O N CONTRAST MATRL RADIOLOGI 29082 [place] MONTGOMER C 4 MEDICAL Y JUS EXAMINATI SERV ON PELVIS FOUNDATIO 1/2 N VIEWS RADIOLOGI 54825 [place] MONTGOMER C 4 MEDICAL Y JUS EXAMINATI SERV ON TIBIA FOUNDATIO & [place] [address] [place] [address] [place] ANGIOGRAP 4 MEDICAL MARIAH HY HEAD SERV W/CONTRAS [place] [address] [place] AYOOB AND ABDOMEN & 4 MEDICAL PELVIS SERV [place] [address] [place] DONNIE ABDOMINAL 4 MEDICAL HERBIE REAL SERV TIME FOUNDATIO W/IMAGE N LIMITED REMOVAL 59642 [facility] SARAVIA NON-BIODE 4 PILLO PILLO GRADABLE DRUG DELIVERY IMPLANT IADNA 98585 [facility] HL[facility] DEPT GONORRHOE LUPE LUPE AE AMPLIFIED PROBE TQ TDAP 95833 [facility] VACCINE 7 4 [facility] DISTRICT YRS/> IM HLTH DEPT HLTH DEPT LUPE LUPE IADNA 81277 [facility] CHLAMYDIA [facility] DEPT HLTH DEPT TRACHOMAT LUPE LUPE IS AMPLIFIED PROBE TQ CYTP 49006 [facility] CERV/VAG 4 [facility] AUTO THIN HLTH DEPT HLTH DEPT LAYER LUPE LUPE PREP MNL SCREEN CONTRACEP J7303 [facility] T SUPPLY 4 [facility] HORMONE HLTH DEPT HLTH DEPT CONTAININ LUPE LUPE G VAG RING EA IAADIADOO 60834 FIELD AMB FIELD AMB 4 STREPTOCO CCUS GROUP A ETONOGEST J7307 [facility] SARAVIA REL 4 PILLO PILLO CNTRACPT IMPL SYS INCL IMPL & SPL INSJ 54685 MANJIT SARAVIA NON-BIODE 4 PILLO PILLO GRADABLE DRUG DELIVERY IMPLANT URINE 47801 MANJIT SARAVIA 4 PILLO PILLO TEST VISUAL COLOR CMPRSN METHS NEURAXIAL 24351 [facility] LAB[facility] 3 ELSA ELSA ANALG/ANE S PLND VAGINAL DELIVERY VAGINAL 11643 MANJIT SARAVIA DELIVERY 3 PILLO PILLO ONLY W/POSTPAR ALLAN CARE REPAIR OF 7569 [facility] OTHER 3 [facility] CURRENT INC INC OBSTETRIC LACERATIO N 73018 MANJIT SARAVIA NONSTRESS 3 PILLO PILLO TEST 15032 MANJIT SARAVIA NONSTRESS 3 PILLO PILLO TEST 86665 [facility] NONSTRESS 3 [facility] TEST INC INC CUL BACT 37265 COMBINED COMBINED XCPT 3 PHYSICIAN PHYSICIAN URINE S LA S LA BLOOD/STO OL AEROBIC ISOL 19970 HARPEL HARPEL NONSTRESS 3 GREGOR GREGOR TEST 26985 [facility]JIT SARAVIA NONSTRESS 3 P[facility]O PILLO TEST HOSPITAL G0378 [facility] OBSERVATI 3 [facility] ON INC INC SERVICE PER HOUR INITIAL 72913 MANJIT SARAVIA OBSERVATI 3 PILLO PILLO ON CARE/DAY 70 MINUTES URNLS DIP 14428 [facility] 3 [facility] STICK/TAB INC INC LET REAGENT AUTO MICROSCOP Y EVAL C/V 24641 [facility] AMNIOTIC 3 [facility] FLUID [place] [address] [facility] INFUSION 3 [facility] THERAPY/P INC INC ROPHYLAXI S /DX 1ST TO 1 HR FTL 94974 [facility] FIBRONECT 3 [facility] IN INC INC CERVICOVA G SECRETION S SEMI-MICHELE INITIAL 31810 MANJIT SARAVIA OBSERVATI 3 PILLO PILLO ON CARE/DAY 50 MINUTES US PREG 61397 [facility] UTERUS 3 [facility] REAL TIME INC INC W/IMAGE DCMTN TRANSVAG 25817 [facility] NONSTRESS 3 [facility] TEST INC INC 72921 SARAVIALucretia SARAVIA NONSTRESS 3 PILLO PILLO TEST GLUCOSE 58339 [facility] TOLERANCE 3 [facility] TEST GTT INC INC 3 SPECIMENS GLUCOSE 37158 [facility] TOLERANCE 3 [facility] EA ADDL INC INC BEYOND 3 SPECIMENS URNLS DIP 54796 [facility] 3 [facility] STICK/TAB INC INC LET RGNT NON-AUTO W/O MICRSCP GLUCOSE 72419 [facility]OM[facility] SARAVIA TOLERANCE 3 HEALTH PILLO TEST GTT CLINIC OF 3 LISSETTE SPECIMENS 65640 WOMEN'S SARAVIA NONSTRESS 3 HEALTH PILLO TEST CLINIC OF LISSETTE US PREG 79247 SARAVIA SARAVIA UTERUS 3 PILLO PILLO AFTER 1ST TRIMEST GESTATION US PREG 30564 WOMEN'S SARAV[facility] UTERUS 3 HEALTH PILLO REAL TIME CLINIC OF W/IMAGE LISSETTE DCMTN TRANSVAG ANTIBODY 26932 COMBINED COMBINED CHLAMYDIA 3 PHYSICIAN PHYSICIAN S LA S LA CUL BACT 25045 COMBINED COMBINED XCPT 3 PHYSICIAN PHYSICIAN URINE S LA S LA BLOOD/STO OL AEROBIC ISOL CULTURE 29767 [facility] BACTERIAL [facility] INC INC QUANTTATI VE COLONY COUNT URINE CULTURE 64309 [facility] BCT 3 [facility] ISOL&PRSM INC INC PTV ID ISOLATE EA URINE SUSCEPTIB 86954 [facility] LTY STDY 3 [facility] ANTIMICRB INC INC IAL MICRO/AGA R DILUTJ URINE 45358 [facility] TEST INC INC VISUAL COLOR CMPRSN METHS URNLS DIP 52309 [facility] PORRASON 3 [facility] STICK/TAB INC INC LET REAGENT AUTO MICROSCOP Y IAADIADOO 94972 FREDERICK VALIS 1 DON DON STREPTOCO CCUS GROUP A CONTRACEP S4993 [facility] TIVE [facility] CONTROL TYMPANOME 45208 MEREDITH HARPER TRY 1 JACQUE JACQUE COMPRE 54668 MEREDITH HARPER AUDIOMETR 1 JACQUE JACQUE Y THRESHOLD EVAL SP RECOGNIJ TONSILLEC 20019 [facility] JENNIFER 1 [facility] PRIMARY/S INC INC ECONDARY AGE 14/> ANESTHESI 87134 COMMUNITY PHAN SHIRLEY A 1 ANESTH [place]TRAORAL [place] [address] [facility] INFUSION 1 [facility] THERAPY INC INC PROPHYLAX IS/DX EA HOUR LEVEL III 88668 CHIPPS TAPAN SURG 1 NANCI & ALEISHA PATHOLOGY DUBILIER GROSS&MONICA ROSCOPIC EXAM TONSILLEC 282 [facility] JENNIFER 1 [facility] WITHOUT INC INC ADENOIDEC JENNIFER BLOOD 60780 [facility] COUNT 1 [facility] HEMATOCRI INC INC T GONADOTRO 12518 [facility] PIN 1 [facility] CHORIONIC INC INC QUALITATI VE BLOOD 61782 [facility] COUNT 1 [facility] HEMOGLOBI INC INC N IAADIADOO 18358 [facility] JINHENS 1 DON DON STREPTOCO CCUS GROUP A IAADIADOO 70986 MACK MACK 1 DON DON STREPTOCO CCUS GROUP A CONTRACEP S4993 [facility] TIVE 1 [facility] CONTROL IADNA 95484 [facility] NEISSERIA 1 [facility] CENTER GONORRHOE AE AMPLIFIED PROBE TQ URINE 62858 [facility] 1 [facility] CENTER VISUAL COLOR CMPRSN METHS IADNA 03012 [facility] CHLAMYDIA 1 [facility] TRACHOMAT IS AMPLIFIED PROBE TQ FITTING 48163 [facility] SCIFRES SPECTACLE 0 VISION ANG S XCPT APHAKIA MONOFOCAL SPHERE V2100 [facility] SCIFRES SINGLE 0 VISION ANG VISION PLANO +/- 4.00 PER LENS OPHTH 74288 HOLLY SCIJUVENTINO MEDICAL 0 VISION ANG XM&EVAL COMPRE NEW PT 1/> VST FRAMES V2020 [facility]LLY CABALLERO PURCHASES 0 VISION ANG DEEP D9220 TRESSA BUSTILLOS SEDATION/ 0 ELMER ELMER GENERAL ANESTHESI A-1ST 30 MINUTES THER 54014 TRESSA BUSTILLOS PROPH/DX 0 ELMER ELMER NJX IV PUSH SINGLE/1S T SBST/DRUG ANESTHESI 50335 TRESSA BUSTILLOS A 0 EL[facility] ELMER EXTERNAL MIDDLE & INNER EAR W/BX NOS IAADIADOO 47240 FREDERICK MACK, 0 DON R DON R STREPTOCO CCUS GROUP A THER 43533 TRESSA BUSTILLOS PROPH/DX 0 , JUAN MARTINEZ NJX IV W W PUSH SINGLE/1S T SBST/DRUG DEEP D9220 TRESSA BUSTILLOS SEDATION/ 0 , JUAN MARTINEZ W W ANESTHESI A-1ST 30 MINUTES ORTHOPANT 63714 TRESSA BUSTILLOS OGRAM 0 , JUAN MARTINEZ CONTRACEP S4993 [facility] TIVE 0 [facility] CONTROL REPAIR OB 75.69 Matt Price NEC Encounters Encounter Start End Date Code Location Performer Type Date OFFICE 46209 Christine PAZ OUTPATIEN 7 7 NARESH DOMÍNGUEZ T VISIT [facility] 15 [facility]UTES [facility] - 6 6 [facility] T EMERGENCY 67300 [facility] 6 6 [facility] V[facility]/M INOR PROB EMERGENCY 50328 MARCUS PEÑA 6 6 [facility] MODERATE SEVERITY OFFICE 19812 [facility] 6 6 PHYSICIAN STALIN T VISIT S GROUP 10 MINUTES OFFICE 36724 [facility] 6 6 PHYSICIAN STALIN T NEW 10 S GROUP MINUTES EMERGENCY 08237 [facility] 6 6 [facility] T VISIT LOW/MODER SEVERITY EMERGENCY 92645 MARCUS LAZO 6 6 [facility] MODERATE SEVERITY [facility] 6 [facility]IENT [facility] OFFICE 09491 [facility] OUT[facility] 6 6 PHYSICIAN T VISIT S GROUP 15 MINUTES [facility] - 6 6 [facility] T OFFICE 71852 [facility] OUT[facility] 6 6 PHYSICIAN T VISIT S GROUP 15 MINUTES OFFICE 38334 [facility] OUT[facility] 6 6 PHYSICIAN PILLO T VISIT S GROUP 15 MINUTES [facility] - 6 6 [facility] T [facility] 6 6 [facility] T [facility] - 6 6 [facility] T OFFICE 87491 [facility] OUT[facility] 6 6 PHYSICIAN PILLO T VISIT S GROUP 15 MINUTES [facility] - 6 6 [facility] INC T OFFICE 64663 [facility] OUTPAT[facility] 6 6 PHYSICIAN PILLO T VISIT S GROUP 15 MINUTES [facility] - 6 6 [facility] 5 5 [facility] T OFFICE 42377 A Vega [place]STAÑ[place] OUTPATIEN 5 5 NARESH DOMÍNGUEZ T VISIT PSC 15 MINUTES [facility]OSP[facility] - 5 5 [facility] - 5 5 [facility] T OFFICE 97526 [facility] MANJIT OUTPATIEN 5 5 PHYSICIAN PILLO T VISIT S GROUP 15 MINUTES OFFICE 55607 A Vega [place] OUTPATIEN 5 5 NARESH DOMÍNGUEZ T VISIT PSC 15 MINUTES [facility] - 5 5 [facility] OFFICE 66081 [facility] OUTPATI[facility] 5 5 PHYSICIAN PILLO T VISIT S GROUP 15 MINUTES OFFICE 45652 A Vega [place] OUTPATIEN 5 5 NARESH DOMÍNGUEZ T VISIT PSC 15 MINUTES [facility] - 5 5 [facility] OFFICE 01071 A Vega [place] OUTPATIEN 5 5 NARESH DOMÍNGUEZ T VISIT PSC 15 MINUTES EMERGENCY 63930 MARCUS TRINIDAD 5 5 PHYSICIAN DEPARTMEN S, [facility] T VISIT MODERATE SEVERITY OFFICE 87850 [facility] MANJIT AUGUSTINEN 5 5 PHYSICIAN PILLO T VISIT S GROUP 15 MINUTES OFFICE 85598 A Vega [place]STAÑ[place] OUTPATIEN 5 5 NARESH DOMÍNGUEZ T VISIT PSC 15 MINUTES OFFICE 60644 A Veag CASTAÑEDA OUTPATIEN 5 5 NARESH DOMÍNGUEZ T VISIT PSC 15 MINUTES [facility]OSPITAL [facility] - 5 5 [facility] OUTPATIEN INC T OFFICE 00681 A Vega PAZ MADDY OUTPATIEN 5 5 NARESH DOMÍNGUEZ T VISIT PSC 15 MINUTES OFFICE 61490 A Vgea PAZ MADDY OUTPATIEN 5 5 NARESH DOMÍNGUEZ T VISIT PSC 15 MINUTES OFFICE 64267 A Vega PAZ MADDY OUTPATIEN 5 5 NARESH DOMÍNGUEZ T VISIT PSC 15 MINUTES OFFICE 09720 [facility] PETTEY OUTPATIEN 5 5 PHYSICIAN KRYSTA T NEW 30 S GROUP MINUTES OFFICE 55400 A Vega PAZ MADDY OUTPATIEN 5 5 NARESH DMOÍNGUEZ T VISIT PSC 15 MINUTES OFFICE 33301 A Vega DA SILVA OUTPATIEN 5 5 NARESH EVANS T VISIT PSC 15 MINUTES OFFICE 72481 A Vega PAZ MADDY OUTPATIEN 5 5 NARESH DOMÍNGUEZ T VISIT PSC 15 MINUTES OFFICE 49438 A Vega PAZ MADDY OUTPATIEN 5 5 NARESH DOMÍNGUEZ T VISIT PSC 15 MINUTES OFFICE 29458 A Vega PAZ MADDY OUTPATIEN 5 5 NARESH DOMÍNGUEZ T VISIT PSC 15 MINUTES OFFICE 43121 [facility] OUTPAT[facility]EN 5 5 Y T VISIT 5 HOSPITAL MINUTES OFFICE 20116 [facility] IM[facility] OUTPATI 5 5 NURSE T VISIT PRACTITIO 40 NER GR MINUTES HOSPITAL [facility]ERSIT - 5 5 Y OUTPATIEN [facility] - 5 5 [facility] OUTPATIEN INC T OFFICE 13654 A Vega PAZ MADDY OUTPATIEN 5 5 NARESH DOMÍNGUEZ T VISIT PSC 25 MINUTES HOSPITAL [facility] - 5 5 [facility] T OFFICE 71608 A Vega PAZ MADDY OUTPATIEN 5 5 NARESH DOMÍNGUEZ T VISIT PSC 15 MINUTES OFFICE 20891 [place] LUIS FENTONPATIEN 5 5 MEDICAL GRE T VISIT SERV 15 FOUNDATIO MINUTES [facility]45 [facility] T V[facility] 5 HOSPITAL MINUTES OFFICE 89888 NOHEMI LOCKWOOD OUTPATIEN 5 5 MEDICAL BRETT T VISIT SERV 15 FOUNDATIO MINUTES N [facility] T [facility]ISIT 5 HOSPITAL MINUTES EMERGENCY 98419 NOHEMI GHALI NICOLAS 5 5 MEDICAL DEPARTMEN SERV T VISIT FOUNDATIO MODERATE N SEVERITY [facility] 66635 [facility] 5 5 Y [facility] T VISIT HIGH/URGE NT SEVERITY OFFICE 84917 [facility] T [facility] 15 [facility]ES [facility]97 [facility]Z [facility] OUTPATIEN 5 5 NARESH DOMÍNGUEZ T VISIT PSC 15 MINUTES OFFICE 57136 NOHEMI DARLYN [facility] 4 4 MEDICAL SRI T VISIT SERV 15 FOUNDATIO MINUTES N HOSPITAL UNIVERSIT - 4 4 Y [facility] EMERGENC[facility] 63705 NOHEMI DONNIE DEPT 4 4 MEDICAL HERBIE VISIT SERV HIGH FOUNDATIO SEVERITY& N THREAT FUNCJ OFFICE 28257 [facility] DE[facility] 10 LUPE LUPE MINUTES OFFICE 69885 MANJIT [facility] CONSULTAT 4 4 PILLO PILLO ION NEW/ESTAB PATIENT 40 MIN PERIODIC 91211 [facility] MED EST HLTH DEPT HLTH DEPT PATIENT LUPE LUPE 18-39 YRS OFFICE 17598 FIELD AMB FIELD AMB OUTPATIEN 4 4 T VISIT 15 MINUTES OFFICE 84746 FIELD AMB FIELD AMB OUTPATIEN 4 4 T VISIT 15 MINUTES OFFICE 03655 MANJIT [facility] OUTPATIEN 4 4 PILLO PILLO T VISIT 15 MINUTES Inpatient IMP Luther Recinos MD (IN) 3 16:31 3 13:00 [facility] - 3 3 [facility] INPATIENT INC OFFICE 42730 MANJIT [facility] OUTPATIEN 3 3 PILLO PILLO T VISIT 15 MINUTES OFFICE 32097 [facility] OUTPATIEN 3 3 PILLO PILLO T VISIT 15 MINUTES HOSPITAL [facility] - 3 3 [facility] OUTPATIEN INC T OFFICE 87032 [facility] OUTPATIEN 3 3 PILLO PILLO T VISIT 15 MINUTES OFFICE 30573 [facility] OUTPATIEN 3 3 PILLO PILLO T VISIT 15 MINUTES OFFICE 58687 MANJIT GREYE OUTPATIEN 3 3 PILLO PILLO T VISIT 15 MINUTES OFFICE 80930 BONITA RECINOS OUTPATIEN 3 3 GREGOR GREGOR T VISIT 15 MINUTES OFFICE 59841 MANJIT GREYE OUTPATIEN 3 3 P[place]O PILLO T VISIT 15 MINUTES Inpatient IMP Luther Saravia MD (IN) 3 07:45 3 09:31 [facility] L[facility] - 3 3 [facility] OUTPATIEN INC T OFFICE 77305 MANJIT [facility] OUTPATIEN 3 3 PILLO PILLO T VISIT 15 MINUTES OFFICE 17602 MANJIT [place] OUTPATIEN 3 3 PILLO PILLO T VISIT 15 MINUTES OFFICE 98379 FIELD AMB FIELD AMB OUTPATIEN 3 3 T VISIT 15 MINUTES OFFICE 67335 [facility] OUTPATIEN 3 3 PILLO PILLO T VISIT 15 MINUTES HOSPITAL [facility] - 3 3 [facility]PATIEN INC T OFFICE 16735 [facility] 3 3 HEALTH PILLO T VISIT 5 CLINIC OF MINUTES LISSETTE OFFICE 87670 FIELD AMB FIELD AMB OUTPATIEN 3 3 T VISIT 15 MINUTES OFFICE 01046 [facility] OUTPATIEN 3 3 PILLO PILLO T VISIT 15 MINUTES OFFICE 42241 [facility] OUTPATIEN 3 3 PILLO PILLO T VISIT 15 MINUTES OFFICE 70685 [facility] OUTPATIEN 3 3 PILLO PILLO T VISIT 15 MINUTES OFFICE 19639 [facility] 3 3 HEALTH PILLO T VISIT CLINIC OF 15 LISSETTE MINUTES Emergency DESIRAE STOUT (ER) 3 13:27 3 13:34 [facility] A EMERGENCY 69289 TAPAN STOUT 3 3 EMERGENCY JAM DEPARTMEN SERVICES T VISIT HIGH/URGE NT SEVERITY EMERGENCY 90165 [facility] 3 3 [facility] DEPARTMEN INC T VISIT LOW/MODER SEVERITY [facility]OSPITAL [facility] - 3 3 [facility] OUTPAT[facility] T OFFICE 80064 [facility] 1 1 DON DON T VISIT 15 MINUTES OFFICE 67995 [facility] 1 1 DON DON T VISIT 15 MINUTES OFFICE 52522 [facility] SLOAN OUTALEAHEN 1 1 [facility] CENTER 10 MINUTES OFFICE 99724 [facility] OUTPAT[facility] 1 1 DON DON T VISIT 15 MINUTES EMERGENCY 09088 [facility] 1 1 [facility] DEPARTMEN INC T VISIT LOW/MODER SEVERITY [facility]OSPITAL [facility] - 1 1 [facility] OUTPATIEN INC T EMERGENCY 63924 [place] LAN 1 1 EMERGENCY [facility] DEPARTMEN SERVICES T VISIT HIGH/URGE NT SEVERITY HOSPITAL [facility] - 1 1 [facility]PATIEN [facility] T [facility]PITAL [facility] - 1 1 [facility] OUTPATIEN INC T OFFICE 85031 LEONEL CASTANEDA OUTPATIEN 1 1 STALIN MILAN 45 MINUTES OFFICE 53493 [facility]ER[facility] MACK OUTPATIEN 1 1 DON DON T VISIT 15 MINUTES OFFICE 06514 FREDERICK MACK OUTPATIEN 1 1 DON DON T VISIT 15 MINUTES [facility] 43069 [facility] SLOAN PREVENTIV 1 1 [facility] E MED EST CENTER CENTER PATIENT 12-17YRS OFFICE 77823 FREDERICK MACK, OUTPATIEN 0 0 DON R DON R T VISIT 15 MINUTES OFFICE 17486 FREDERICK MACK, OUTPATIEN 0 0 DON R DON R T VISIT 15 MINUTES OFFICE 74454 TRESSA BUSTILLOS OUTPATIEN 0 0 , JUAN MARTINEZ 10 W W MINUTES OFFICE 66427 FR[facility]ERICK MACK, OUTPATIEN 0 0 DON R DON R T VISIT 15 MINUTES OFFICE 85897 [facility] SLOAN OUTPATIEN 0 0 [facility] T VISIT CENTER CENTER 10 MINUTES
--- OUTSIDE RECORDS SUMMARY | 2016-11-28 04:30 | External Medical Summary Rpt ---
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 [facility] MODALITY 5 [facility] 1/> AREAS INC INC ELEC STIMJ UNATTENDE D APPL 28928 [facility] S[facility] MODALITY 5 [facility] 1/> AREAS INC INC ELEC STIMJ UNATTENDE D THERAPEUT 92479 [facility] IC PX 1/> 5 [facility] AREAS INC INC EACH 15 MIN EXERCISES APPLICATI 85793 [facility] ON 5 [facility] MODALITY INC INC 1/> AREAS HOT/COLD PACKS PHYSICAL 12803 [facility] THERAPY 5 [facility] EVALUATIO INC INC N RADEX 01710 [facility] SPINE 5 Y Y [facility] 4 OR 5 VIEWS CERVICAL L0174 [facility] COLLAR 5 BRACING, BRACING, SEMI-RIGI INC INC D FOAM THOR EXT PREFAB RADEX 33540 [facility] SULY SPINE 5 MEDICAL MARIAH CERVICAL SERV 2 OR 3 FOUNDATIO VIEWS N RADEX 22907 [facility] 5 Y Y MINIMUM 3 HOSPITAL HOSPITAL VIEWS SBSQ 58346 [facility] 4 MEDICAL JERSON CARE/DAY SERV 25 FOUNDATIO MINUTES N SBSQ 37812 [facility] 4 MEDICAL JERSON CARE/DAY SERV 25 FOUNDATIO MINUTES N SBSQ 59962 [place] [address] MEDICAL NAN CARE/DAY SERV 25 FOUNDATIO MINUTES N SBSQ 93165 [place] [address] MEDICAL NAN CARE/DAY SERV 25 FOUNDATIO MINUTES N RADIOLOGI 35543 [facility] RADMANESH C 4 RADIOLOGY SHA EXAMINATI ON KNEE 1/2 VIEWS RADEX 04381 [facility] JUAN PABLO SPINE 4 RADIOLOGY III LOLIS CERVICAL 2 OR 3 VIEWS SBSQ 73237 [facility] 4 MEDICAL JERSON CARE/DAY SERV 25 FOUNDATIO MINUTES N RADEX 55775 [facility] 4 MEDICAL Y JUS MINIMUM 3 SERV VIEWS FOUNDATIO N SBSQ [address] [facility] 4 MEDICAL ZANE CARE/DAY SERV 25 FOUNDATIO MINUTES N SBSQ [address] [facility] 4 MEDICAL ZANE CARE/DAY SERV 25 FOUNDATIO MINUTES N SBSQ 47513 [place] [address] MEDICAL NAN CARE/DAY SERV 25 FOUNDATIO MINUTES N SBSQ 40247 [place] [address] MEDICAL NAN CARE/DAY SERV 25 FOUNDATIO MINUTES N SWALLOWIN 09383 [facility] [place] WESTERFIE G FUNCJ 4 RADIOLOGY LD IV ALL W/CINERAD IOGRAPY/V IDRADIOG SBSQ 89708 [place] [address] MEDICAL DANNIE CARE/DAY SERV 25 FOUNDATIO MINUTES N SBSQ 81964 [place] [address] MEDICAL DANNIE CARE/DAY SERV 25 FOUNDATIO MINUTES N SBSQ 33103 [place] [address] MEDICAL DANNIE CARE/DAY SERV 25 FOUNDATIO MINUTES N SBSQ 23426 [place] [address] MEDICAL DANNIE CARE/DAY SERV 25 FOUNDATIO MINUTES N SBSQ 46573 [place] [address] MEDICAL DANNIE CARE/DAY SERV 25 FOUNDATIO MINUTES N SBSQ 88027 [place] [address] MEDICAL DANNIE CARE/DAY SERV 25 FOUNDATIO MINUTES N INITIAL 48080 [place] [address] MEDICAL DANNIE CARE/DAY SERV 70 FOUNDATIO MINUTES N SBSQ 00742 [place] [address] MEDICAL LISSETTE CARE/DAY SERV 25 FOUNDATIO MINUTES N SBSQ 81931 [place] [address] MEDICAL LISSETTE CARE/DAY SERV 25 FOUNDATIO MINUTES N DUP-SCAN 15209 [place] ENDEAN XTR VEINS 4 MEDICAL JERSON COMPLETE SERV FOUNDATIO BILATERAL N STUDY SBSQ 41603 [facility] 4 MEDICAL CHR CARE/DAY SERV 15 FOUNDATIO MINUTES N SBSQ 09647 [facility] 4 MEDICAL CHR CARE/DAY SERV 15 FOUNDATIO MINUTES N RADIOLOGI 50137 [place] MITCHELL C 4 MEDICAL MONICA EXAMINATI SERV ON CHEST FOUNDATIO SINGLE N VIEW FRONTAL RADEX 76999 [place] GERONIMO ABDOMEN 1 4 MEDICAL SCO SERV ANTEROPOS FOUNDATIO TERIOR N VIEW SWALLOWIN 11505 [place] DISANTIS G FUNCJ 4 MEDICAL JOHN W/CINERAD SERV IOGRAPY/V FOUNDATIO IDRADIOG N RADIOLOGI 80987 [place] LINTON MADDY C 4 MEDICAL EXAMINATI SERV ON CHEST FOUNDATIO SINGLE N VIEW FRONTAL SBSQ 98445 [facility] 4 MEDICAL CHR CARE/DAY SERV 25 FOUNDATIO MINUTES N SBSQ 24651 [facility] 4 MEDICAL CARE/DAY SERV 25 FOUNDATIO MINUTES N RADEX 32987 [place] ALEIDA HAND 4 MEDICAL FRA MINIMUM 3 SERV VIEWS FOUNDATIO N SBSQ 42979 [place] [facility] 4 MEDICAL CARE/DAY SERV 25 FOUNDATIO MINUTES N RADEX 43461 [place] SZABUNIO SPINE 4 MEDICAL MAR CERVICAL SERV 2 OR [address] [place] [address] [place] HEBERT HEAD/BRAI 4 MEDICAL MADDY N W/O SERV CONTRAST FOUNDATIO MATERIAL N RADIOLOGI 99624 [place] THIAGO SAYRA C 4 MEDICAL EXAMINATI SERV ON CHEST FOUNDATIO SINGLE N VIEW FRONTAL RADIOLOGI 73651 [place] SEANGUROVSK C 4 MEDICAL AYA MAR EXAMINATI SERV ON CHEST FOUNDATIO SINGLE N VIEW FRONTAL SBSQ 51717 [facility] 4 MEDICAL CHR CARE/DAY SERV 25 FOUNDATIO MINUTES N RADIOLOGI 85727 [place] MADDY C 4 MEDICAL EXAMINATI SERV ON CHEST FOUNDATIO SINGLE N VIEW FRONTAL RADIOLOGI 76256 [place] MITCHELL C 4 MEDICAL MONICA EXAMINATI SERV ON CHE[place] [address] [place] RASLAU CERVICAL 4 MEDICAL FLA SPINE W/O SERV CONTRAST FOUNDATIO MATERIAL N LEVEL III 23403 [facility] CYPRESS SURG Y OF JUL PATHOLOGY [facility] GROSS&MONICA ROSCOPIC EXAM ANESTHESI 90636 [place] LANDRUM A 4 MEDICAL DUN EXTENSIVE SERV SPINE & FOUNDATIO SPINAL N CORD ARTHRD 73909 [place] SMITH ANT 4 MEDICAL GRE INTERDY SERV CERVCL FOUNDATIO BELW C2 N EA ADDL NTRSPC ARTHRT 63860 [place] MANDIE KNE 4 MEDICAL BRETT W/EXPL SERV DRG/RMVL FOUNDATIO FB N ANTERIOR 53200 [place] SMITH INSTRUMEN 4 MEDICAL GRE TATION SERV 2-3 FOUNDATIO VERTEBRAL N SEGMENTS APPLICATI 42738 [place] SMITH ON 4 MEDICAL GRE INTERVERT SERV EBRAL FOUNDATIO BIOMECHAN N ICAL DEVICE RADEX 71176 [place] SERENA SPINE 1 4 MEDICAL YFN VIEW SERV SPECIFY FOUNDATIO LEVEL N ARTHRD 57411 [place] SMITH ANT 4 MEDICAL GRE INTERBODY SERV FOUNDATIO DECOMPRES N S CERVICAL BELW C2 RADEX 89481 [place] ALEIDA SPINE 1 4 MEDICAL FRA VIEW SERV SPECIFY FOUNDATIO LEVEL N RADEX 39279 [place] THIAGO SAYRA SPINE 1 4 MEDICAL VIEW SERV SPECIFY FOUNDATIO LEVEL N RADEX 97195 [place] THIAGO SAYRA SPINE 4 MEDICAL CERVICAL SERV 2 OR 3 FOUNDATIO VIEWS N SBSQ 46502 [place] [facility] 4 MEDICAL ANT CARE/DAY SERV 35 FOUNDATIO MINUTES N INITIAL 99933 [place] [facility] 4 MEDICAL LISSETTE CARE/DAY SERV 70 FOUNDATIO MINUTES N RADEX 39907 [place] MONTGOMER ELBOW 4 MEDICAL Y JUS COMPLETE SERV MINIMUM 3 FOUNDATIO VIEWS N RADEX 66539 [place] MONTG[place] HAND 4 MEDICAL Y JUS MINIMUM [address] [place] [address] [place] SULY ANGIOGRAP 4 MEDICAL MARIAH HY NECK SERV W/CONTRAS FOUNDAT[place] T/[place] [address] [place] AYOOB AND ANGIOGRAP 4 MEDICAL HY CHEST SERV W/CONTRAS FOUNDAT[place] T/[place] [address] [place] AYOOB AND CERVICAL 4 MEDICAL SPINE W/O SERV CONTRAST FOUNDATIO MATERIAL N RADIOLOGI 46904 [place] MONTGOMER C 4 MEDICAL Y JUS EXAMINATI SERV ON FEMUR FOUNDATIO 2 VIEWS N RADEX 60460 [place] MONTG[place]ER ANKLE 4 MEDICAL Y JUS COMPLETE SERV MINIMUM 3 FOUNDATIO VIEWS N RADEX 00912 [place] [facility] FOOT 4 MEDICAL Y JUS COMPLETE SERV MINIMUM 3 FOUNDATIO VIEWS N AMB A0431 AIR AIR SERVICE 4 METHODS METHODS CONVNTION PSYCHIATRIC AIR SRVC TRANSPORT [address] RADIOLOGI 82924 [place] MONTGOMER C 4 MEDICAL Y JUS EXAMINATI SERV ON KNEE [address] [place] [address] [place] AYOOB AND THORACIC 4 MEDICAL SPINE W/O SERV CONTRAST FOUNDATIO MATERIAL N US CHEST 59062 [place] DONNIE REAL TIME 4 MEDICAL HERBIE W/IMAGE SERV DOCUMENTA FOUNDATIO TION N RADIOLOGI 57000 [place] MONTGOMER C 4 MEDICAL Y JUS EXAMINATI SERV ON CHEST FOUNDATIO SINGLE N VIEW FRONTAL RADEX 71209 [place] TERIGOMER HUMERUS 4 MEDICAL Y JUS MINIMUM 2 SERV VIEWS FOUNDATIO N RADEX 37445 [place] TERIGOMER FOREARM 2 4 MEDICAL Y JUS VIEWS SERV FOUNDATIO N RADEX 24752 [place] TERIGOMER WRIST 4 MEDICAL Y JUS COMPLETE SERV MINIMUM 3 FOUNDATIO VIEWS N ECHO 00610 [place] DONNIE TRANSTHOR 4 MEDICAL HERBIE C R-T 2D SERV W/WO FOUNDATIO M-MODE N REC F-UP/LMTD CT LUMBAR 38207 [place] AYOOB AND SPINE 4 MEDICAL W/O SERV CONTRAST FOUNDATIO MATERIAL N MRI 55685 [place] FLORIN ELBERT SPINAL 4 MEDICAL CANAL SERV CERVICAL FOUNDATIO W/O N CONTRAST MATRL RADIOLOGI 63273 [place] MONTGOMER C 4 MEDICAL Y JUS EXAMINATI SERV ON PELVIS FOUNDATIO 1/2 N VIEWS RADIOLOGI 20212 [place] MONTGOMER C 4 MEDICAL Y JUS EXAMINATI SERV ON TIBIA FOUNDATIO & [place] [address] [place] [address] [place] SULY ANGIOGRAP 4 MEDICAL MARIAH HY HEAD SERV W/CONTRAS FOUNDAT[place] T/[place] [address] [place] AYOOB AND ABDOMEN & 4 MEDICAL PELVIS SERV W/[place] [address] [place] DONNIE ABDOMINAL 4 MEDICAL HERBIE REAL SERV TIME FOUNDATIO W/IMAGE N LIMITED REMOVAL 13119 SARAVIA SARAVIA NON-BIODE 4 PILLO PILLO GRADABLE DRUG DELIVERY IMPLANT IADNA 07145 [facility] DEPT GONORRHOE LUPE LUPE AE AMPLIFIED PROBE TQ TDAP 82312 [facility] VACCINE 7 4 [facility] DISTRICT YRS/> IM HLTH DEPT HLTH DEPT LUPE LUPE IADNA 02416 [facility] CHLAMYDIA [facility] DEPT [facility]TH DEPT TRACHOMAT LUPE LUPE IS AMPLIFIED PROBE TQ CYTP 65248 [facility] CERV/VAG 4 [facility] AUTO THIN HLTH DEPT HLTH DEPT LAYER LUPE LUPE PREP MNL SCREEN CONTRACEP J7303 [facility] T SUPPLY 4 [facility] HORMONE HLTH DEPT HLTH DEPT CONTAININ LUPE LUPE G VAG RING EA IAADIADOO 81655 FIELD AMB FIELD AMB 4 STREPTOCO CCUS GROUP A ETONOGEST J7307 MANJTI SARAVIA REL 4 PILLO PILLO CNTRACPT IMPL SYS INCL IMPL & SPL INSJ 03337 MANJIT SARAVIA NON-BIODE 4 PILLO PILLO GRADABLE DRUG DELIVERY IMPLANT URINE 05347 MANJIT SARAVIA 4 PILLO PILLO TEST VISUAL COLOR CMPRSN METHS NEURAXIAL 85952 NIRMAL KINNEY LABOR 3 ELSA ELSA ANALG/ANE S PLND VAGINAL DELIVERY VAGINAL 65575 MANJIT SARAVIA DELIVERY 3 PILLO PILLO ONLY W/POSTPAR ALLAN CARE REPAIR OF 7569 [facility] OTHER 3 [facility] CURRENT INC INC OBSTETRIC LACERATIO N 44017 MANJIT SARAVIA NONSTRESS 3 PILLO PILLO TEST 91234 MANJIT SARAVIA NONSTRESS 3 PILLO PILLO TEST 28955 [facility] NONSTRESS 3 [facility] TEST INC INC CUL BACT 37590 COMBINED COMBINED XCPT 3 PHYSICIAN PHYSICIAN URINE S LA S LA BLOOD/STO OL AEROBIC ISOL 23727 HARPEL HARPEL NONSTRESS 3 GREGOR GREGOR TEST 00832 MANJIT SARAVIA NONSTRESS 3 P[facility] P[facility] TEST HOSPITAL G0378 [facility] OBSERVATI 3 [facility] ON INC INC SERVICE PER HOUR INITIAL 84570 MANJIT SARAVIA OBSERVATI 3 PILLO PILLO ON CARE/DAY 70 MINUTES URNLS DIP 54714 [facility] 3 [facility] STICK/TAB INC INC LET REAGENT AUTO MICROSCOP Y EVAL C/V 45250 [facility] AMNIOTIC 3 [facility] FLUID [place] [address] [facility] INFUSION 3 [facility] THERAPY/P INC INC ROPHYLAXI S /DX 1ST TO 1 HR FTL 60512 [facility] FIBRONECT 3 [facility] IN INC INC CERVICOVA G SECRETION S SEMI-MICHELE INITIAL 74016 MANJIT SARAVIA OBSERVATI 3 PILLO PILLO ON CARE/DAY 50 MINUTES US PREG 42394 [facility] UTERUS 3 [facility] REAL TIME INC INC W/IMAGE DCMTN TRANSVAG 06312 [facility] NONSTRESS 3 [facility] TEST INC INC 94262 SARAVIALucretia SARAVIA NONSTRESS 3 PILLO PILLO TEST GLUCOSE 20666 [facility] TOLERANCE 3 [facility] TEST GTT INC INC 3 SPECIMENS GLUCOSE 65649 [facility] TOLERANCE 3 [facility] EA ADDL INC INC BEYOND 3 SPECIMENS URNLS DIP 46263 [facility] 3 [facility] STICK/TAB INC INC LET RGNT NON-AUTO W/O MICRSCP GLUCOSE 41562 [facility]OMEN'[facility] SAR[facility] TOLERANCE 3 HEALTH PILLO TEST GTT CLINIC OF 3 LISSETTE SPECIMENS 59393 WOMEN'S SARAVIA NONSTRESS 3 HEALTH PILLO TEST CLINIC [place] PREG 58822 SARAVIA SARAVIA UTERUS 3 IPLLO PILLO AFTER 1ST TRIMEST GESTATION US PREG 56764 [facility]OMEN'S SAR[facility] UTERUS 3 HEALTH PILLO REAL TIME CLINIC OF W/IMAGE LISSETTE DCMTN TRANSVAG ANTIBODY 13521 COMBINED COMBINED CHLAMYDIA 3 PHYSICIAN PHYSICIAN S LA S LA CUL BACT 25520 COMBINED COMBINED XCPT 3 PHYSICIAN PHYSICIAN URINE S LA S LA BLOOD/STO OL AEROBIC ISOL CULTURE 38005 [facility] BACTERIAL 3 [facility] INC INC QUANTTATI VE COLONY COUNT URINE CULTURE 02549 [facility] BCT 3 [facility] ISOL&PRSM INC INC PTV ID ISOLATE EA URINE SUSCEPTIB 13054 [facility] LTY STDY 3 [facility] ANTIMICRB INC INC IAL MICRO/AGA R DILUTJ URINE 88654 [facility] 3 [facility] TEST INC INC VISUAL COLOR CMPRSN METHS URNLS DIP 84216 [facility] PORRASON 3 [facility] STICK/TAB INC INC LET REAGENT AUTO MICROSCOP Y IAADIADOO 69966 [facility] VAILS 1 DON DON STREPTOCO CCUS GROUP A CONTRACEP S4993 [facility] TIVE [facility] CONTROL TYMPANOME 33179 MEREDITH HARPER TRY 1 JACQUE JACQUE COMPRE 78196 MEREDITH HARPER AUDIOMETR 1 JACQUE JACQUE Y THRESHOLD EVAL SP RECOGNIJ TONSILLEC 90881 [facility] JENNIFER 1 [facility] PRIMARY/S INC INC ECONDARY AGE 12/> ANESTHESI 67357 COMMUNITY PHAN SHIRLEY A 1 ANESTH INTRAORAL [place] [address] [facility] INFUSION 1 [facility] THERAPY INC INC PROPHYLAX IS/DX EA HOUR LEVEL III 41881 CHIPPS TAPAN SURG 1 NANCI & ALEISHA PATHOLOGY DUBILIER GROSS&MONICA ROSCOPIC EXAM TONSILLEC 282 [facility] JENNIFER 1 [facility] WITHOUT INC INC ADENOIDEC JENNIFER BLOOD 96613 [facility] COUNT 1 [facility] HEMATOCRI INC INC T GONADOTRO 58461 ULTHER SLOAN PIN 1 [facility] CHORIONIC INC INC QUALITATI VE BLOOD 89663 [facility] COUNT 1 [facility] HEMOGLOBI INC INC N IAADIADOO 88875 [facility] JINHENS 1 DON DON STREPTOCO CCUS GROUP A IAADIADOO 35015 MACK MCAK 1 DON DON STREPTOCO CCUS GROUP A CONTRACEP S4993 [facility] TIVE 1 [facility] CONTROL IADNA 79990 [facility] NEISSERIA 1 [facility] GONORRHOE AE AMPLIFIED PROBE TQ URINE 50148 [facility] 1 [facility] CENTER VISUAL COLOR CMPRSN METHS IADNA 92573 [facility] CHLAMYDIA 1 [facility] TRACHOMAT IS AMPLIFIED PROBE TQ FITTING 42979 [facility] SCIFRES SPECTACLE 0 VISION ANG S XCPT APHAKIA MONOFOCAL SPHERE V2100 [facility] SCIFRES SINGLE 0 VISION ANG VISION PLANO +/- 4.00 PER LENS OPHTH 98028 HOLLY SCIJUVENTINO MEDICAL 0 VISION ANG XM&EVAL COMPRE NEW PT 1/> VST FRAMES V2020 [facility]LLY CABALLERO PURCHASES 0 VISION ANG DEEP D9220 TRESSA BUSTILLOS SEDATION/ 0 ELMER ELMER GENERAL ANESTHESI A-1ST 30 MINUTES THER 90563 TRESSA BUSTILLOS PROPH/DX 0 ELMER ELMER NJX IV PUSH SINGLE/1S T SBST/DRUG ANESTHESI 68569 TRESSA BUSTILLOS A 0 ELMER ELMER EXTERNAL MIDDLE & INNER EAR W/BX NOS IAADIADOO 95237 FREDERICK MACK, 0 DON R DON R STREPTOCO CCUS GROUP A THER 14638 TRESSA BUSTILLOS PROPH/DX 0 , JUAN MARTINEZ NJX IV W W PUSH SINGLE/1S T SBST/DRUG DEEP D9220 TRESSA BUSTILLOS SEDATION/ 0 , JUAN MARTINEZ W W ANESTHESI A-1ST 30 MINUTES ORTHOPANT 12321 TRESSA BUSTILLOS OGRAM 0 , JUAN MARTINEZ CONTRACEP S4993 [facility] TIVE 0 [facility] CONTROL REPAIR OB 75.69 Matt Price NEC Encounters Encounter Start End Date Code Location Performer Type Date OFFICE 48673 Christine PAZ OUTPATIEN 7 7 NARESH DOMÍNGUEZ T VISIT [facility] 15 MINUTES [facility] - 6 6 [facility] OUTPATIEN INC T EMERGENCY 95671 [facility] 6 6 [facility] VIS[facility] LIMITED/M INOR PROB EMERGENCY 20162 MARCUS PEÑA 6 6 PHYSICIAN [facility] MODERATE SEVERITY OFFICE 71243 [facility] CASTANEDA OUTPATIEN 6 6 PHYSICIAN STALIN T VISIT S GROUP 10 MINUTES OFFICE 75362 [facility] OUTPATIEN 6 6 PHYSICIAN STALIN T NEW 10 S GROUP MINUTES EMERGENCY 45110 [facility] 6 6 [facility] T VISIT LOW/MODER SEVERITY EMERGENCY 82277 MARCUS LAZO 6 6 PHYSICIAN SAYRA [facility] T VISIT MODERATE SEVERITY [facility] - 6 6 [facility] OUTPATIEN [facility] T HOSPITAL [facility] - 6 6 [facility] INPATIENT INC OFFICE 53311 [facility] SARAVIA OUTPATIEN 6 6 PHYSICIAN T VISIT S GROUP 15 MINUTES HOSPITAL [facility] - 6 6 [facility] OUTPATIEN INC T OFFICE 09202 [facility] SARAVIA OUTPATIEN 6 6 PHYSICIAN T VISIT S GROUP 15 MINUTES OFFICE 74616 [facility] SARAVIA OUTPATIEN 6 6 PHYSICIAN PILLO T VISIT S GROUP 15 MINUTES HOSPITAL [facility] - 6 6 [facility] OUTPATIEN INC T [facility] - 6 6 [facility] OUTPATIEN INC T [facility] - 6 6 [facility] OUTPATIEN INC T OFFICE 48438 [facility] SARAVIA OUTPATIEN 6 6 PHYSICIAN PILLO T VISIT S GROUP 15 MINUTES HOSPITAL [facility] - 6 6 [facility] OUTPATIEN INC T OFFICE 05214 [facility] SARAVIA OUTPATIEN 6 6 PHYSICIAN PILLO T VISIT S GROUP 15 MINUTES HOSPITAL [facility] - 6 6 [facility] OUTPATIEN [facility] - 5 5 [facility] OUTPATIEN [facility] T OFFICE 44379 A Vega CASTAÑEDA OUTPATIEN 5 5 NARESH DOMÍNGUEZ T VISIT PSC 15 MINUTES HOSPITAL [facility] - 5 5 [facility]PATIEN [facility] L[facility] - 5 5 [facility] OUTPATIEN [facility] T OFFICE 40008 [facility] MANJIT OUTPATIEN 5 5 PHYSICIAN PILLO T VISIT S GROUP 15 MINUTES OFFICE 74061 [facility] [place] OUTPATIEN 5 5 NARESH DOMÍNGUEZ T VISIT PSC 15 MINUTES [facility] L[facility] - 5 5 [facility] OUTPATIEN [facility] T OFFICE 25661 [facility] SARAVIA OUTPATIEN 5 5 PHYSICIAN PILLO T VISIT S GROUP 15 MINUTES OFFICE 75641 A [facility] [place] OUTPATIEN 5 5 NARESH DOMÍNGUEZ T VISIT PSC 15 MINUTES HOSPITAL [facility] - 5 5 [facility] OUTPATIEN [facility] T OFFICE 45614 A [facility] OUTPATIEN 5 5 NARESH DOMÍNGUEZ T VISIT PSC 15 MINUTES EMERGENCY 03803 MARCUS TRINIDAD 5 5 PHYSICIAN DEPARTMEN S, [facility] T VISIT MODERATE SEVERITY OFFICE 19772 [facility] MANJIT AUGUSTINEN 5 5 PHYSICIAN PILLO T VISIT S GROUP 15 MINUTES OFFICE 82708 [facility] [place] OUTPATIEN 5 5 NARESH DOMÍNGUEZ T VISIT PSC 15 MINUTES OFFICE 04094 [facility] CASTA[place] OUTPATIEN 5 5 NARESH DOMÍNGUEZ T VISIT PSC 15 MINUTES HOSPITAL [facility] - [facility] T OFFICE 75664 A Vega PAZ MADDY OUTPATIEN 5 5 NARESH DOMÍNGUEZ T VISIT PSC 15 MINUTES OFFICE 23320 A [facility]ega PAZ MADDY OUTPATIEN 5 5 NARESH DOMÍNGUEZ T VISIT PSC 15 MINUTES OFFICE 34693 A Vega PAZ MADDY OUTPATIEN 5 5 NARESH DOMÍNGUEZ T VISIT PSC 15 MINUTES OFFICE 70182 [facility] PETTEY OUTPATIEN 5 5 PHYSICIAN KRYSTA T [place] 30 S GROUP MINUTES OFFICE 87580 A Vega PAZ MADDY OUTPATIEN 5 5 NARESH DOMÍNGUEZ T VISIT PSC 15 MINUTES OFFICE 35980 A Vega DA SILVA OUTPATIEN 5 5 NARESH EVANS T VISIT PSC 15 MINUTES OFFICE 47852 A Vega PAZ MADDY OUTPATIEN 5 5 NARESH DOMÍNGUEZ T VISIT PSC 15 MINUTES OFFICE 81499 A [facility]ega PAZ MADDY OUTPATIEN 5 5 NARESH DOMÍNGUEZ T VISIT PSC 15 MINUTES OFFICE 04759 A [facility]ega PAZ MADDY OUTPATIEN 5 5 NARESH DOMÍNGUEZ T VISIT PSC 15 MINUTES OFFICE 21581 UNIVERSIT OUTPATIEN 5 5 Y T VISIT 5 HOSPITAL MINUTES OFFICE 71201 [facility] OUTPATI 5 5 NURSE T VISIT PRACTITIO 40 NER GR MINUTES HOSPITAL UN[facility]ERSIT - 5 5 [facility] - [facility] INC T OFFICE 03539 A Vega PAZ MADDY OUTPATIEN 5 5 NARESH DOMÍNGUEZ T VISIT PSC 25 MINUTES [facility] - 5 5 [facility] OUTPATIEN [facility] T OFFICE 76301 A Vega PAZ MADDY OUTPATIEN 5 5 NARESH DOMÍNGUEZ T VISIT PSC 15 MINUTES OFFICE 85217 [place] [facility] FENTONPATIEN 5 5 MEDICAL GRE T VISIT SERV 15 FOUNDATIO MINUTES [facility] UNIVERSIT [facility] 5 5 Y [facility] T OFF[facility] 36722 [facility] T [facility] HOSPITAL MINUTES OFFICE 06371 NOHEMI L[place] OUTPATIEN 5 5 MEDICAL BRETT T VISIT SERV 15 FOUNDATIO MINUTES N HOSPITAL UNIVERSIT - 5 5 Y [facility] T OFFICE 08285 [facility] T VISIT 5 HOSPITAL MINUTES EMERGENCY 58217 NOHEMI GHALI NICOLAS 5 5 MEDICAL DEPARTMEN SERV T VISIT FOUNDATIO MODERATE N SEVERITY HOSPITAL UNIVERSIT - 5 5 Y [facility] T EMERGENCY 47747 UNIVERSIT 5 5 Y [facility] T VISIT HIGH/URGE NT SEVERITY OFFICE 99908 UNIVERSIT OUT[facility] 5 5 Y T VISIT HOSPITAL 15 MINUTES [facility]OSPITAL [facility] 13795 Christine PAZ [facility] OUTPATIEN 5 5 NARESH DOMÍNGUEZ T VISIT PSC 15 MINUTES OFFICE 32963 NOHEMI DARLYN [facility] 4 4 MEDICAL SRI T VISIT SERV 15 FOUNDATIO MINUTES N HOSPITAL UNIVERSIT - 4 4 Y [facility] 4 4 [facility] EMERGENC[facility] 18739 NOHEMI DONNIE DEPT 4 4 MEDICAL HERBIE VISIT SERV HIGH FOUNDATIO SEVERITY& N THREAT FUNCJ OFFICE 67073 [facility] DEPT [facility] DEPT 10 LUPE LUPE MINUTES OFFICE 66377 MANJIT SARAVIA CONSULTAT 4 4 PILLO PILLO ION NEW/ESTAB PATIENT 40 MIN PERIODIC 95150 [facility] EST HLTH DEPT HLTH DEPT PATIENT LUPE LUPE 18-39 YRS OFFICE 47466 FIELD AMB FIELD AMB OUTPATIEN 4 4 T VISIT 15 MINUTES OFFICE 47359 FIELD AMB FIELD AMB OUTPATIEN 4 4 T VISIT 15 MINUTES OFFICE 49753 MANJIT SARAVIA OUTPATIEN 4 4 PILLO PILLO T VISIT 15 MINUTES Inpatient IMP Luther Recinos MD (IN) 3 16:31 3 13:00 [facility] - 3 3 [facility] OFFICE 78869 MANJIT SARAVIA OUTPATIEN 3 3 PILLO PILLO T VISIT 15 MINUTES OFFICE 96841 SARAVIA SARAVIA OUTPATIEN 3 3 P[place]O PILLO T VISIT 15 MINUTES [facility] - [facility] 3 [facility] T OFFICE 27767 SARAVIA SARAVIA OUTPATIEN 3 3 PILLO PILLO T VISIT 15 MINUTES OFFICE 43279 [facility] OUTPATIEN 3 3 PILLO PILLO T VISIT 15 MINUTES OFFICE 47070 MANJIT GREYE OUTPATIEN 3 3 PILLO PILLO T VISIT 15 MINUTES OFFICE 24118 BONITA RECINOS OUTPATIEN 3 3 GREGOR GREGOR T VISIT 15 MINUTES OFFICE 69066 MANJIT GREYE OUTPATIEN 3 3 PILLO PILLO T VISIT 15 MINUTES Inpatient IMP Luther Saravia MD (IN) 3 07:45 3 09:31 [facility] - 3 3 [facility] T OFFICE 14772 MANJIT SARAVIA OUTPATIEN 3 3 PILLO PILLO T VISIT 15 MINUTES OFFICE 30499 MANJIT SARAVIA OUTPATIEN 3 3 PILLO PILLO T VISIT 15 MINUTES OFFICE 84619 FIELD AMB FIELD AMB OUTPATIEN 3 3 T VISIT 15 MINUTES OFFICE 69935 [facility] OUTPATIEN 3 3 PILLO PILLO T VISIT 15 MINUTES [facility] - [facility] T OFFICE 01995 [facility] 3 [facility]ALTH PILLO T VISIT 5 CLINIC OF MINUTES LISSETTE OFFICE 74616 FIELD AMB FIELD AMB OUTPATIEN 3 3 T VISIT 15 MINUTES OFFICE 67170 [facility] OUTPATIEN 3 3 PILLO PILLO T VISIT 15 MINUTES OFFICE 44204 [facility] OUTPATIEN 3 3 PILLO PILLO T VISIT 15 MINUTES OFFICE 44796 [facility] OUTPATIEN 3 3 PILLO PILLO T VISIT 15 MINUTES OFFICE 08574 [facility] 3 3 HEALTH PILLO T VISIT CLINIC OF 15 LISSETTE MINUTES Emergency DESIRAE STOUT (ER) 3 13:27 3 13:34 [facility] A EMERGENCY 10978 [place] STOUT 3 3 EMERGENCY JAM DEPARTMEN SERVICES T VISIT HIGH/URGE NT SEVERITY EMERGENCY 22964 [facility] 3 3 [facility] DEPART[facility] INC T VISIT LOW/MODER SEVERITY HOSPITAL [facility] - 3 3 [facility] T OFFICE 32394 [facility] 1 1 DON DON T VISIT 15 MINUTES OFFICE 82717 [facility] 1 1 DON DON T VISIT 15 MINUTES OFFICE 89572 [facility] OUTALEAHEN 1 1 [facility] CENTER 10 MINUTES OFFICE 14880 [facility] 1 1 DON DON T VISIT 15 MINUTES EMERGENCY 12511 [facility] 1 1 [facility] DEPARTMEN INC T VISIT LOW/MODER SEVERITY HOSPITAL [facility] - 1 1 [facility] T EMERGENCY 43640 [place] LAN 1 1 EMERGENCY [facility] DEPARTMEN SERVICES T VISIT HIGH/URGE NT SEVERITY [facility]OSPITAL [facility] - [facility] 1 [facility] 1 1 [facility] T OFFICE 38926 LEONEL CASTANEDA OUTPATIEN 1 1 STALIN MILAN 45 MINUTES OFFICE 76268 [facility] MACK OUTPATIEN 1 1 DON DON T VISIT 15 MINUTES OFFICE 97656 [facility] MACK OUTPATIEN 1 1 DON DON T VISIT 15 MINUTES [facility] 62194 [facility] SLOAN PREVENTIV 1 1 [employer] HEALTH E MED EST CENTER CENTER PATIENT 12-17YRS OFFICE 68494 FREDERICK MACK, OUTPATIEN 0 0 DON R DON R T VISIT 15 MINUTES OFFICE 85071 [facility] MACK, OUTPATIEN 0 0 DON R DON R T VISIT 15 MINUTES OFFICE 89810 TRESSA BUSTILLOS OUTPATIEN 0 0 , JUAN MARTINEZ 10 W W MINUTES OFFICE 54851 [facility] MACK, OUTPATIEN 0 0 DON R DON R T VISIT 15 MINUTES OFFICE 17345 [facility] OUTPATIEN 0 0 [employer] HEALTH T VISIT CENTER CENTER 10 MINUTES
--- OUTSIDE RECORDS SUMMARY | 2016-11-28 04:37 | External Medical Summary Rpt ---
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 [address] MEDICAL LISSETTE CARE/DAY SERV 25 FOUNDATIO MINUTES N INITIAL 00454 [place] [address] MEDICAL DANNIE CARE/DAY SERV 70 FOUNDATIO MINUTES N SBSQ 35878 [place] [address] MEDICAL LISSETTE CARE/DAY SERV 25 FOUNDATIO MINUTES N DUP-SCAN 63938 [place] ENDEAN XTR VEINS 4 MEDICAL JERSON COMPLETE SERV FOUNDATIO BILATERAL N STUDY SBSQ 29168 [facility] 4 MEDICAL CHR CARE/DAY SERV 15 FOUNDATIO MINUTES N SBSQ 90668 [facility] 4 MEDICAL CHR CARE/DAY SERV 15 FOUNDATIO MINUTES N RADIOLOGI 75101 [place] MITCHELL 4 MEDICAL MONICA EXAMINATI SERV ON CHEST FOUNDATIO SINGLE N VIEW FRONTAL RADEX 04677 [place] GERONIMO ABDOMEN 1 4 MEDICAL SCO SERV ANTEROPOS FOUNDATIO TERIOR N VIEW SWALLOWIN 05791 [place] DISANTIS G FUNCJ 4 MEDICAL JOHN W/CINERAD SERV IOGRAPY/V FOUNDATIO IDRADIOG N SBSQ 38816 [facility] 4 MEDICAL CHR CARE/DAY SERV 25 FOUNDATIO MINUTES N RADIOLOGI 38802 [place] LINTON MADDY C 4 MEDICAL EXAMINATI SERV ON CHEST FOUNDATIO SINGLE N VIEW FRONTAL SBSQ 03689 [facility] 4 MEDICAL CARE/DAY SERV 25 FOUNDATIO MINUTES N RADEX 14422 [place] ALEIDA HAND 4 MEDICAL FRA MINIMUM 3 SERV VIEWS FOUNDATIO N SBSQ 72426 [facility] 4 MEDICAL CARE/DAY SERV 25 FOUNDATIO MINUTES N RADEX 57625 [place] SZABUNIO SPINE 4 MEDICAL MAR CERVICAL SERV 2 OR [address] [place] [address] [place] HEBERT HEAD/BRAI 4 MEDICAL MADDY N W/O SERV CONTRAST FOUNDATIO MATERIAL N RADIOLOGI 73689 [place] THIAGO SAYRA C 4 MEDICAL EXAMINATI SERV ON CHEST FOUNDATIO SINGLE N VIEW FRONTAL RADIOLOGI 92335 [place] GINGERVSK C 4 MEDICAL AYA MAR EXAMINATI SERV ON CHEST FOUNDATIO SINGLE N VIEW FRONTAL SBSQ 18347 [facility] 4 MEDICAL CHR CARE/DAY SERV 25 FOUNDATIO MINUTES N RADIOLOGI 25252 [place] LINTON MADDY C 4 MEDICAL EXAMINATI SERV ON CHEST FOUNDATIO SINGLE N VIEW FRONTAL RADIOLOGI 63496 [place] MITCHELL C 4 MEDICAL MONICA EXAMINATI SERV ON CHE[place] [address] [place] RASLAU CERVICAL 4 MEDICAL FLA SPINE W/O SERV CONTRAST FOUNDATIO MATERIAL N LEVEL III 45067 [facility] SUR[facility] 4 Y OF JUL PATHOLOGY [facility] GROSS&MONICA ROSCOPIC EXAM ARTHRT 36180 [place] MANDIE KNE 4 MEDICAL BRETT W/EXPL SERV DRG/RMVL FOUNDATIO FB N ANESTHESI 23888 [place] LANDRUM A 4 MEDICAL DUN EXTENSIVE SERV SPINE & FOUNDATIO SPINAL N CORD ARTHRD 62369 [place] SMITH ANT 4 MEDICAL GRE INTERDY SERV CERVCL FOUNDATIO BELW C2 N EA ADDL NTRSPC ANTERIOR 37178 [place] SMITH INSTRUMEN 4 MEDICAL GRE TATION SERV 2-3 FOUNDATIO VERTEBRAL N SEGMENTS APPLICATI 86016 [place] SMITH ON 4 MEDICAL GRE INTERVERT SERV EBRAL FOUNDATIO BIOMECHAN N ICAL DEVICE RADEX 25268 [place] SERENA SPINE 1 4 MEDICAL YFN VIEW SERV SPECIFY FOUNDATIO LEVEL N ARTHRD 87575 [place] SMITH ANT 4 MEDICAL GRE INTERBODY SERV FOUNDATIO DECOMPRES N S CERVICAL BELW C2 RADEX 05309 [place] ALEIDA SPINE 1 4 MEDICAL FRA VIEW SERV SPECIFY FOUNDATIO LEVEL N RADEX 35678 [place] THIAGO SAYRA SPINE 1 4 MEDICAL VIEW SERV SPECIFY FOUNDATIO LEVEL N RADEX 08583 [place] THIAGO SAYRA SPINE 4 MEDICAL CERVICAL SERV 2 OR 3 FOUNDATIO VIEWS N SBSQ 70956 [place] [facility] 4 MEDICAL ANT CARE/DAY SERV [address] [place] [address] [place] AYOOB AND ABDOMEN & 4 MEDICAL PELVIS SERV [place] [address] [place] DONNIE ABDOMINAL 4 MEDICAL HERBIE REAL SERV TIME FOUNDATIO W/IMAGE N LIMITED AMB [id number] AIR AIR SERVICE 4 METHODS METHODS [facility]ION [facility] AIR SRVC TRANSPORT [address] INITIAL 39628 [facility] 4 MEDICAL LISSETTE CARE/DAY SERV [address] LUMBAR 87761 [place] AYOOB AND SPINE 4 MEDICAL W/O SERV CONTRAST FOUNDATIO MATERIAL N MRI 73394 [place] FLORIN ELBERT SPINAL 4 MEDICAL CANAL SERV CERVICAL FOUNDATIO W/O N CONTRAST MATRL RADIOLOGI 66035 [place] MONTGOMER C 4 MEDICAL Y JUS EXAMINATI SERV ON PELVIS FOUNDATIO 1/2 N VIEWS RADIOLOGI 02896 [place] MONTGOMER C 4 MEDICAL Y JUS EXAMINATI SERV ON TIBIA FOUNDATIO & FIBULA N 2 VIEWS ECHO 10542 [place] DONNIE TRANSTHOR 4 MEDICAL HERBIE C R-T 2D SERV W/WO FOUNDATIO M-MODE N REC F-UP/[place] [address] [place] SULY ANGIOGRAP 4 MEDICAL MARIAH HY HEAD SERV W/CONTRAS FOUNDATIO T/NONCONT N RAST RADIOLOGI 13218 [place] MONTGOMER C 4 MEDICAL Y JUS EXAMINATI SERV ON FEMUR FOUNDATIO 2 VIEWS N RADEX 48281 [place] MONTGOMER ANKLE 4 MEDICAL Y JUS COMPLETE SERV MINIMUM 3 FOUNDATIO VIEWS N RADEX 54234 [place] MONTGOMER FOOT 4 MEDICAL Y JUS COMPLETE SERV MINIMUM 3 FOUNDATIO VIEWS N RADEX 92167 [place] MONTGOMER ELBOW 4 MEDICAL Y JUS COMPLETE SERV MINIMUM 3 FOUNDATIO VIEWS N RADEX 71432 [place] MONTGOMER HAND 4 MEDICAL Y JUS MINIMUM [address] [place] [address] [place] AYOOB AND THORACIC 4 MEDICAL SPINE W/O SERV CONTRAST FOUNDATIO MATERIAL N RADIOLOGI 75306 [place] MONTGOMER C 4 MEDICAL Y JUS EXAMINATI SERV ON CHEST FOUNDATIO SINGLE N VIEW FRONTAL RADIOLOGI 57105 [place] MONTGOMER C 4 MEDICAL Y JUS EXAMINATI SERV ON KNEE 3 FOUNDATIO VIEWS N [place] CHEST 53697 [place] DONNIE REAL TIME 4 MEDICAL HERBIE W/IMAGE SERV DOCUMENTA FOUNDATIO TION N RADEX 94405 [place] MONTGOMER HUMERUS 4 MEDICAL Y JUS MINIMUM 2 SERV VIEWS FOUNDATIO N RADEX 74131 [place] FOREARM 2 4 MEDICAL Y JUS VIEWS SERV FOUNDATIO N RADEX 30422 [place] MONTGOMER WRIST 4 MEDICAL Y JUS COMPLETE SERV MINIMUM [address] [place] [address] [place] SULY ANGIOGRAP 4 MEDICAL MARIAH HY NECK SERV W/CONTRAS FOUNDAT[place] T/[place] [address] [place] AYOOB AND ANGIOGRAP 4 MEDICAL HY CHEST SERV W/CONTRAS [place]OUNDAT[place] T/[place] [address] [place] AYOOB AND CERVICAL 4 MEDICAL SPINE W/O SERV CONTRAST FOUNDATIO MATERIAL N REMOVAL 70142 MANJIT SARAVIA NON-BIODE 4 PILLO PILLO GRADABLE DRUG DELIVERY IMPLANT TDAP 91269 [facility] VACCINE 7 4 [facility] YRS/> IM HLTH DEPT HLTH DEPT LUPE [facility] IADNA 77305 [facility] NEISSERIA [facility] HLTH DEPT HLTH DEPT GONORRHOE LUPE LUPE AE AMPLIFIED PROBE TQ CYTP 36865 [facility] CERV/VAG 4 [facility] AUTO THIN HLTH DEPT HLTH DEPT LAYER [facility] LUPE PREP MNL SCREEN IADNA 65699 [facility] CHLAMYDIA 4 [facility] HLTH DEPT HLTH DEPT TRACHOMAT LUPE LU[place] IS AMPLIFIED PROBE TQ CONTRACEP J7303 [facility] T SUPPLY 4 [facility] HORMONE HLTH DEPT HLTH DEPT CONTAININ LUPE LUPE G VAG RING EA IAADIADOO 99701 FIELD AMB FIELD AMB 4 STREPTOCO CCUS GROUP A ETONOGEST J7307 MANJIT SARAVIA REL 4 PILLO PILLO CNTRACPT IMPL SYS INCL IMPL & SPL INSJ 87463 MANJIT SARAVIA NON-BIODE 4 PILLO PILLO GRADABLE DRUG DELIVERY IMPLANT URINE 21229 MANJIT SARAVIA 4 PILLO PILLO TEST VISUAL COLOR CMPRSN METHS NEURAXIAL 68493 NIRMAL KINNEY LABOR 3 ELSA ELSA ANALG/ANE S PLND [place]AGIN[place]IV[place] REPAIR OF 7569 [facility] OTHER 3 [facility] CURRENT INC INC OBSTETRIC LACERATIO N VAGINAL 24961 MANJIT SARAVIA DELIVERY 3 PILLO PILLO ONLY W/POSTPAR ALLAN CARE 50454 MANJIT SARAVIA NONSTRESS 3 PILLO PILLO TEST 06950 MANJIT SARAVIA NONSTRESS 3 PILLO PILLO TEST 06857 [facility] NONSTRESS 3 [facility] TEST INC INC CUL BACT 89266 COMBINED COMBINED XCPT 3 PHYSICIAN PHYSICIAN URINE S LA S LA BLOOD/STO OL AEROBIC ISOL 86494 HARPEL HARPEL NONSTRESS 3 GREGOR GREGOR TEST 51098 SARAVIA SARAVIA NONSTRESS 3 [facility] TEST HOSPITAL G0378 [facility] OBSERVATI 3 [facility] ON INC INC SERVICE PER HOUR INITIAL 73274 MANJIT SARAVIA OBSERVATI 3 PILLO PILLO ON CARE/DAY 70 MINUTES FTL 47808 [facility] FIBRONECT 3 [facility] IN INC INC CERVICOVA G SECRETION S SEMI-MICHELE URNLS DIP 57891 [facility] 3 [facility] STICK/TAB INC [place] [address] [facility] INFUSION 3 [facility] THERAPY/P INC INC ROPHYLAXI S /DX 1ST TO 1 HR INITIAL 86184 SARAVIA MANJIT OBSERVATI 3 PILLO PILLO ON CARE/DAY 50 MINUTES EVAL C/V 22981 [facility] AMNIOTIC 3 [facility] FLUID INC INC PROTEIN QUAL EA SPECIMEN 49756 [facility] NONSTRESS 3 [facility] TEST INC INC [place] PREG 59364 [facility] UTERUS 3 [facility] REAL TIME INC INC W/IMAGE DCMTN TRANSVAG 07732 SARAVIA SARAVIA NONSTRESS 3 PILLO PILLO TEST URNLS DIP 97012 [facility] 3 [facility] STICK/TAB INC INC LET RGNT NON-AUTO W/O MICRSCP GLUCOSE 60668 [facility] TOLERANCE 3 [facility] TEST GTT INC INC 3 SPECIMENS GLUCOSE 45164 [facility] TOLERANCE 3 [facility] EA ADDL INC INC BEYOND 3 SPECIMENS GLUCOSE 01296 [facility] TOLERANCE 3 HEALTH PILLO TEST GTT CLINIC OF 3 LISSETTE SPECIMENS 06831 [facility] NONSTRESS 3 HEALTH PILLO TEST CLINIC OF [place] PREG 16499 MANJIT SARAVIA UTERUS 3 PILLO PILLO AFTER 1ST TRIMEST 1/ GESTATION [place] PREG 73884 [facility] UTERUS 3 HEALTH PILLO REAL TIME CLINIC OF W/IMAGE LISSETTE DCMTN TRANSVAG ANTIBODY 03471 COMBINED COMBINED CHLAMYDIA 3 PHYSICIAN PHYSICIAN S LA S LA CUL BACT 00532 COMBINED COMBINED XCPT 3 PHYSICIAN PHYSICIAN URINE S LA S LA BLOOD/STO OL AEROBIC ISOL CULTURE 97730 [facility] BACTERIAL 3 [facility] INC INC QUANTTATI VE COLONY COUNT URINE CULTURE 20694 [facility] BCT 3 [facility] ISOL&PRSM INC INC PTV ID ISOLATE EA URINE URINE 17806 [facility] 3 [facility] TEST INC INC VISUAL COLOR CMPRSN METHS URNLS DIP 99527 [facility] 3 [facility] STICK/TAB INC INC LET REAGENT AUTO MICROSCOP Y SUSCEPTIB 43714 [facility] LTY STDY 3 [facility] ANTIMICRB INC INC IAL MICRO/AGA R DILUTJ IAADIADOO 75812 FREDERICK MACK 1 DON DON STREPTOCO CCUS GROUP A CONTRACEP S4993 [facility] TIVE 1 [employer] [facility] CONTROL COMPRE 68233 MEREDITH HARPER AUDIOMETR 1 JACQUE JACQUE Y THRESHOLD EVAL SP RECOGNIJ TYMPANOME 32257 MEREDITH HERNANDEZER TRY 1 [place] [address] [facility] INFUSION 1 [facility] THERAPY INC INC PROPHYLAX IS/DX EA HOUR TONSILLEC 29761 [facility] JENNIFER 1 [facility] PRIMARY/S INC INC ECONDARY AGE 12/> LEVEL III 61416 [place] SURG 1 ANNCI & ALEISHA PATHOLOGY DUBILIER GROSS&MONICA ROSCOPIC EXAM ANESTHESI 64479 COMMUNITY PHAN SHIRLEY A 1 ANESTH INTRAORAL OF THE WITH BLUE BIOPSY NOS TONSILLEC 282 [facility] JENNIFER 1 [facility] WITHOUT INC INC ADENOIDEC JENNIFER GONADOTRO 73127 [facility] PIN 1 [facility] CHORIONIC INC INC QUALITATI VE BLOOD 63828 [facility] COUNT 1 [facility] HEMOGLOBI INC INC N BLOOD 31715 [facility] COUNT 1 [facility] HEMATOCRI INC INC T IAADIADOO 33363 FREDERICK JINHENS 1 DON DON STREPTOCO CCUS GROUP A IAADIADOO 01217 MACK MACK 1 DON DON STREPTOCO CCUS GROUP A CONTRACEP S4993 [facility] S[facility] TIVE 1 [facility] CONTROL IADNA 37389 [facility] NEISSERIA 1 [facility] CENTER GONORRHOE AE AMPLIFIED PROBE TQ URINE 59234 [facility]AN 1 [facility] TEST CENTER CENTER VISUAL COLOR CMPRSN METHS IADNA 80826 [facility] CHLAMYDIA 1 [facility] CENTER TRACHOMAT IS AMPLIFIED PROBE TQ OPHTH 13778 HOLLY CABALLERO MEDICAL 0 VISION ANG XM&EVAL COMPRE NEW PT 1/> VST FITTING 54576 HOLLY CABALLERO SPECTACLE 0 VISION ANG S XCPT APHAKIA MONOFOCAL SPHERE V2100 HOLLY CABALLERO SINGLE 0 VISION ANG VISION PLANO +/- 4.00 PER LENS FRAMES V2020 HOLLY CABALLERO PURCHASES 0 VISION ANG THER 07203 TRESSA BUSTILLOS PROPH/DX 0 ELMER ELMER NJX IV PUSH SINGLE/1S T SBST/DRUG DEEP D9220 TRESSA BUSTILLOS SEDATION/ 0 ELMER ELMER GENERAL ANESTHESI A-1ST 30 MINUTES ANESTHESI 99765 TRESSA BUSTILLOS A 0 ELMER ELMER EXTERNAL MIDDLE & INNER EAR W/BX NOS IAADIADOO 49997 MACK, MACK, 0 DON R DON R STREPTOCO CCUS GROUP A DEEP D9220 TRESSA BUSTILLOS SEDATION/ 0 , JUAN MARTINEZ GENERAL W W ANESTHESI A-1ST 30 MINUTES THER 04152 TRESSA BUSTILLOS PROPH/DX 0 , JUAN MARTINEZ NJX IV W W PUSH SINGLE/1S T SBST/DRUG ORTHOPANT 35816 TRESSA BUSTILLOS OGRAM 0 , JUAN MARTINEZ W W CONTRACEP S4993 [facility] TIVE 0 [facility] [employer] [facility] CONTROL Encounters Encounter Start End Date Code Location Performer Type Date OFFICE 90108 Christine CHEEK 7 7 NARESH DOMÍNGUEZ T VISIT [facility] 15 MINUTES HOSPITAL [facility] - [address] [facility] T EMERGENCY 59337 MARCUS PEÑA 6 6 PHYSICIAN Biju GARZA S, [facility] T VISIT MODERATE SEVERITY EMERGENCY 96686 [facility] 6 6 [facility] T VISIT LIMITED/M INOR PROB OFFICE 81025 [facility] LEONEL CHEEK 6 6 PHYSICIAN STALIN T VISIT S GROUP 10 MINUTES OFFICE 26302 [facility] LEONEL CHEEK 6 6 PHYSICIAN STALIN T NEW 10 S GROUP MINUTES HOSPITAL L[facility]HER - 6 6 [facility] EMERGENCY 45151 MARCUS LAZO 6 6 PHYSICIAN SAYRA GARZA , [facility] T VISIT MODERATE SEVERITY EMERGENCY 76150 [facility] 6 6 [facility] T VISIT LOW/MODER SEVERITY HOSPITAL [facility] - 6 6 [facility] INPATIENT [facility] L[facility]HER - 6 6 [facility] T OFFICE 88077 [facility] MANJIT AUGUSTINEN 6 6 PHYSICIAN T VISIT S GROUP 15 MINUTES OFFICE 35976 [facility] MANJIT AUGUSTINEN 6 6 PHYSICIAN T VISIT S GROUP 15 MINUTES OFFICE 35738 [facility] MANJIT AUGUSTINEN 6 6 PHYSICIAN PILLO T VISIT S GROUP 15 MINUTES HOSPITAL [facility] - [address] [facility] LUTHER - 6 6 [facility]PATI[facility]PITAL LUTHER - [address] [facility] T OFFICE 95185 [facility] SARAVIA OUTPATIEN 6 6 PHYSICIAN PILLO T VISIT S GROUP 15 MINUTES HOSPITAL [facility] - 6 6 [facility] OUTPATIEN INC T OFFICE 57602 [facility] SARAVIA OUTPATIEN 6 6 PHYSICIAN PILLO T VISIT S GROUP 15 MINUTES [facility] LUTHER - 6 6 [facility]PATIEN [facility] LUTHER - 5 5 [facility] OUTPATIEN INC T OFFICE 28080 A Vega CASTAÑEDA OUTPATIEN 5 5 NARESH DOMÍNGUEZ T VISIT PSC 15 MINUTES [facility] LUTHER - 5 5 [facility]PATIEN [facility] LUTHER - 5 5 [facility] OUTPATIEN [facility] T OFFICE 24450 [facility] MANJIT OUTALEAHEN 5 5 PHYSICIAN PILLO T VISIT S GROUP 15 MINUTES OFFICE 34579 A [facility]ega CASTAÑED[place] OUTPATIEN 5 5 NARESH DOMÍNGUEZ T VISIT PSC 15 MINUTES HOSPITAL [facility] - [address] [facility] T OFFICE 32225 [facility] MANJIT AUGUSTINEN 5 5 PHYSICIAN PILLO T VISIT S GROUP 15 MINUTES OFFICE 10373 [facility] CASTAÑ[place] OUTPATIEN 5 5 NARESH DOMÍNGUEZ T VISIT PSC 15 MINUTES HOSPITAL [facility] - 5 5 [facility] OUTPATIEN INC T OFFICE 67066 [facility] [place] OUTPATIEN 5 5 NARESH DOMÍNGUEZ T VISIT PSC 15 MINUTES EMERGENCY 33013 MARCUS TRINIDAD 5 5 PHYSICIAN DEPARTMEN S, PLLC T VISIT MODERATE SEVERITY OFFICE 62490 [facility] MANJIT CHEEK 5 5 PHYSICIAN PILLO T VISIT S GROUP 15 MINUTES OFFICE 54107 A Vega CASTAÑEDA OUTPATIEN 5 5 NARESH DOMÍNGUEZ T VISIT PSC 15 MINUTES OFFICE 10823 A Vega PAZ MADDY OUTPATIEN 5 5 NARESH DOMÍNGUEZ T VISIT PSC 15 MINUTES HOSPITAL [facility] - 5 5 [facility] OUTPATIEN INC T OFFICE 69209 A Vega PAZ MADDY OUTPATIEN 5 5 NARESH DOMÍNGUEZ T VISIT PSC 15 MINUTES OFFICE 70806 A Vega PAZ AMDDY OUTPATIEN 5 5 NARESH DOMÍNGUEZ T VISIT PSC 15 MINUTES OFFICE 01604 A Vega PAZ MADDY OUTPATIEN 5 5 NARESH DOMÍNGUEZ T VISIT PSC 15 MINUTES OFFICE 41785 [facility] PETTEY OUTPATIEN 5 5 PHYSICIAN KRYSTA Lopez NEW 30 S GROUP MINUTES OFFICE 71319 A [facility]ega PAZ MADDY OUTPATIEN 5 5 NARESH DOMÍNGUEZ T VISIT PSC 15 MINUTES OFFICE 38004 A Vega FENTONPATIEN 5 5 NARESH EVANS T VISIT PSC 15 MINUTES OFFICE 57850 [facility] CASTAÑED[place] OUTPATIEN 5 5 NARESH DOMÍNGUEZ T VISIT PSC 15 MINUTES OFFICE 93722 A [facility] CASTAÑEDA OUTPATIEN 5 5 NARESH DOMÍNGUEZ T VISIT PSC 15 MINUTES OFFICE 15749 A Vega PAZ MADDY OUTPATIEN 5 5 NARESH DOMÍNGUEZ T VISIT PSC 15 MINUTES HOSPITAL UNIVERSIT - 5 5 Y OUTPATI HOSPITAL T OFFICE 91615 UNIVERSIT OUTPATIEN 5 5 Y T VISIT 5 HOSPITAL MINUTES OFFICE 41320 [facility] MIKY OUTPATIEN 5 5 NURSE T VISIT PRACTITIO 40 NER GR MINUTES HOSPITAL [facility] - 5 5 [facility] OUTPATIEN INC T OFFICE 25097 A Vega PAZ MADDY OUTPATIEN 5 5 NARESH DOMÍNGUEZ T VISIT PSC 25 MINUTES HOSPITAL [facility] - 5 5 [facility] OUTPATIEN INC T OFFICE 54134 Christine [facility] NARESH DOMÍNGUEZ T VISIT [facility] 15 MINUTES [facility] 95045 [facility] 5 5 Y T VISIT 5 HOSPITAL MINUTES OFFICE 92477 [facility] MEDICAL GRE T VISIT SERV 15 FOUNDATIO MINUTES N OFFICE 86780 NOHEMI EPPERSONMEHDI OUTPATIEN 5 5 MEDICAL BRETT T VISIT SERV 15 FOUNDATIO MINUTES N OFFICE 69238 [facility] 5 5 Y T VISIT 5 [facility] 21217 [facility] 5 MEDICAL DEPARTMEN SERV T VISIT FOUNDATIO MODERATE N SEVERITY EMERGENCY 20918 [facility] 5 5 [facility] T VISIT HIGH/URGE NT SEVERITY HOSPITAL [facility] - 5 5 Y [facility] 68465 [facility] 15 MINUTES [facility]ICE 70384 Christine [facility] NARESH DOMÍNGUEZ T VISIT PSC 15 MINUTES OFFICE 98582 [facility] 4 4 MEDICAL SRI T VISIT SERV 15 FOUNDATIO MINUTES N HOSPITAL UNIVERSIT - 4 4 Y [facility] C[facility] - 4 4 [facility] 81633 NOHEMI FIELDS DEPT 4 4 MEDICAL HERBIE VISIT SERV HIGH FOUNDATIO SEVERITY& N THREAT FUNCJ OFFICE 26964 [facility] T VISIT [facility] DEPT HLTH DEPT 10 LUPE LUPE MINUTES OFFICE 43986 MANJIT SARAVIA CONSULTAT 4 4 PILLO PILLO ION NEW/ESTAB PATIENT 40 MIN PERIODIC 46343 [facility] PRE[facility] 4 4 [facility] E MED EST HLTH DEPT HLTH DEPT PATIENT LUEP LUPE 18-39 YRS OFFICE 43493 FIELD AMB FIELD AMB OUTPATIEN 4 4 T VISIT 15 MINUTES OFFICE 47561 FIELD AMB FIELD AMB OUTPATIEN 4 4 T VISIT 15 MINUTES OFFICE 01065 MANJIT SARAVIA OUTPATIEN 4 4 [facility]O PILL[facility] T VISIT 15 MINUTES [facility] OFFICE 78748 MANJIT GREYE OUTPATIEN 3 3 PILLO PILLO T VISIT 15 MINUTES OFFICE 91642 MANJIT GREYE OUTPATIEN 3 3 P[facility]O PILLO T VISIT 15 MINUTES [facility] T OFFICE 09200 [facility] OUTPATIEN 3 3 PILLO PILLO T VISIT 15 MINUTES OFFICE 27221 [facility] OUTPATIEN 3 3 PILLO PILLO T VISIT 15 MINUTES OFFICE 69606 MANJIT GREYE OUTPATIEN 3 3 PILLO PILLO T VISIT 15 MINUTES OFFICE 20106 HARPEL HARPEL OUTPATIEN 3 3 GREGOR GREGOR T VISIT 15 MINUTES OFFICE 10899 [facility] OUTPATIEN 3 3 [facility] PILLO T VISIT 15 MINUTES [facility] T OFFICE 14198 [facility] OUTPATIEN 3 3 PILLO PILLO T VISIT 15 MINUTES OFFICE 46538 [facility] OUTPATIEN 3 3 PILLO PILLO T VISIT 15 MINUTES OFFICE 68442 FIELD AMB FIELD AMB OUTPATIEN 3 3 T VISIT 15 MINUTES OFFICE 35426 [facility] OUTPATIEN 3 3 [facility]O PILLO T VISIT 15 MINUTES [facility] T OFFICE 65081 [facility] 3 3 [facility] T VISIT 5 CLINIC OF MINUTES LISSETTE OFFICE 12818 FIELD AMB FIELD AMB OUTPATIEN 3 3 T VISIT 15 MINUTES OFFICE 93752 [facility] OUTPATIEN 3 3 PILLO PILLO T VISIT 15 MINUTES OFFICE 20327 [facility] OUTPATIEN 3 3 PILLO PILLO T VISIT 15 MINUTES OFFICE 67177 [facility] OUTPATIEN 3 3 PILLO PILLO T VISIT 15 MINUTES OFFICE 22437 [facility] 3 3 HEALTH PILLO T VISIT CLINIC OF 15 LISSETTE MINUTES [facility] 3 [facility] OUTPATIEN INC T EMERGENCY 48842 [facility] 3 3 [facility] DEPARTMEN INC T VISIT LOW/MODER SEVERITY EMERGENCY 86817 TAPAN STOUT 3 3 EMERGENCY JAM DEPARTMEN SERVICES T VISIT HIGH/URGE NT SEVERITY OFFICE 95393 MACK MACK OUTPATIEN 1 1 DON DON T VISIT 15 MINUTES OFFICE 88861 MACK MACK OUTPATIEN 1 1 DON DON T VISIT 15 MINUTES OFFICE 80296 [facility] SLOAN OUTPATIEN 1 1 [facility] CENTER 10 MINUTES OFFICE 59404 MACK MACK OUTPATIEN 1 1 DON DON T VISIT 15 MINUTES [facility] 1 [facility] OUTPATIEN INC T EMERGENCY 40820 TAPAN LAN 1 1 EMERGENCY MONICA DEPARTMEN SERVICES T VISIT HIGH/URGE NT SEVERITY EMERGENCY 63852 [facility] 1 1 [facility] DEPARTMEN INC T VISIT LOW/MODER SEVERITY [facility] 1 [facility] T [facility] - 1 1 [facility] OUTPATIEN INC T OFFICE 18553 LEONEL CASTANEDA OUTPATIEN 1 1 STALIN STALIN T NEW 45 MINUTES OFFICE 34903 FREDERICK VAILS OUTPATIEN 1 1 DON DON T VISIT 15 MINUTES OFFICE 39577 FREDERICK MACK OUTPATIEN 1 1 DON DON T VISIT 15 MINUTES PERIODIC 39738 [facility] SLOAN PREVENTIV 1 1 [employer] [facility] E MED EST CENTER CENTER PATIENT 12-17YRS OFFICE 25740 FREDERICK MACK, OUTPATIEN 0 0 DON R DON R T VISIT 15 MINUTES OFFICE 13009 FREDERICK MACK, OUTPATIEN 0 0 DON R DON R T VISIT 15 MINUTES OFFICE 21064 TRESSA BUSTILLOS OUTPATIEN 0 0 , JUAN MARTINEZ 10 W W MINUTES OFFICE 59599 FREDERICK MACK OUTPATIEN 0 0 DON R DON R T VISIT 15 MINUTES OFFICE 68882 [facility] OUTPATIEN 0 0 Omgili T VISIT CENTER CENTER 10 MINUTES
--- OUTSIDE RECORDS SUMMARY | 2016-11-28 04:37 | External Medical Summary Rpt ---
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 CARE/DAY SERV 25 FOUNDATIO MINUTES N SBSQ 22495 [place] [address] MEDICAL LISSETTE CARE/DAY SERV 25 FOUNDATIO MINUTES N INITIAL 22655 [place] [address] MEDICAL DANNIE CARE/DAY SERV 70 FOUNDATIO MINUTES N SBSQ 16365 [place] [address] MEDICAL LISSETTE CARE/DAY SERV 25 FOUNDATIO MINUTES N DUP-SCAN 42553 [place] ENDEAN XTR VEINS 4 MEDICAL JERSON COMPLETE SERV FOUNDATIO BILATERAL N STUDY SBSQ 00346 [facility] 4 MEDICAL CHR CARE/DAY SERV 15 FOUNDATIO MINUTES N SBSQ 97431 [facility] 4 MEDICAL CHR CARE/DAY SERV 15 FOUNDATIO MINUTES N RADIOLOGI 81328 [place] MITCHELL 4 MEDICAL MONICA EXAMINATI SERV ON CHEST FOUNDATIO SINGLE N VIEW FRONTAL RADEX 86221 [place] GERONIMO ABDOMEN 1 4 MEDICAL SCO SERV ANTEROPOS FOUNDATIO TERIOR N VIEW SWALLOWIN 41701 [place] DISANTIS G FUNCJ 4 MEDICAL JOHN W/CINERAD SERV IOGRAPY/V FOUNDATIO IDRADIOG N SBSQ 85782 [facility] 4 MEDICAL CHR CARE/DAY SERV 25 FOUNDATIO MINUTES N RADIOLOGI 87416 [place] LINT[place] MADDY C 4 MEDICAL EXAMINATI SERV ON CHEST FOUNDATIO SINGLE N VIEW FRONTAL SBSQ 38178 [facility] 4 MEDICAL CARE/DAY SERV 25 FOUNDATIO MINUTES N RADEX 14641 [place] ALEIDA HAND 4 MEDICAL FRA MINIMUM 3 SERV VIEWS FOUNDATIO N SBSQ 24580 [facility] 4 MEDICAL CARE/DAY SERV 25 FOUNDATIO MINUTES N RADEX 11586 [place] SZABUNIO SPINE 4 MEDICAL MAR CERVICAL SERV 2 [place] [address] [place] [address] [place] HEBERT HEAD/BRAI 4 MEDICAL MADDY N W/O SERV CONTRAST FOUNDATIO MATERIAL N RADIOLOGI 55697 [place] THIAGO SAYRA C 4 MEDICAL EXAMINATI SERV ON CHEST FOUNDATIO SINGLE N VIEW FRONTAL RADIOLOGI 06005 [place] GINGERVSK C 4 MEDICAL AYA MAR EXAMINATI SERV ON CHEST FOUNDATIO SINGLE N VIEW FRONTAL SBSQ 03491 [facility] 4 MEDICAL CHR CARE/DAY SERV 25 FOUNDATIO MINUTES N RADIOLOGI 83130 [place] MADDY C 4 MEDICAL EXAMINATI SERV ON CHEST FOUNDATIO SINGLE N VIEW FRONTAL RADIOLOGI 91109 [place] MITCHELL C 4 MEDICAL MONICA EXAMINATI SERV ON CHE[place] [address] [place] RASLAU CERVICAL 4 MEDICAL FLA SPINE W/O SERV CONTRAST FOUNDATIO MATERIAL N LEVEL III 64829 [facility] SURG 4 Y OF JUL PATHOLOG[facility] GROSS&MONICA ROSCOPIC EXAM ARTHRT 53926 [place] MANDIE KNE 4 MEDICAL BRETT W/EXPL SERV DRG/RMVL FOUNDATIO FB N ANESTHESI 11486 [place] LANDRUM A 4 MEDICAL DUN EXTENSIVE SERV SPINE & FOUNDATIO SPINAL N CORD ARTHRD 99517 [place] SMITH ANT 4 MEDICAL GRE INTERDY SERV CERVCL FOUNDATIO BELW C2 N EA ADDL NTRSPC ANTERIOR 00676 [place] SMITH INSTRUMEN 4 MEDICAL GRE TATION SERV 2-3 FOUNDATIO VERTEBRAL N SEGMENTS APPLICATI 06569 [place] SMITH ON 4 MEDICAL GRE INTERVERT SERV EBRAL FOUNDATIO BIOMECHAN N ICAL DEVICE RADEX 53288 [place] SERENA SPINE 1 4 MEDICAL YFN VIEW SERV SPECIFY FOUNDATIO LEVEL N ARTHRD 87794 [place] SMITH ANT 4 MEDICAL GRE INTERBODY SERV FOUNDATIO DECOMPRES N S CERVICAL BELW C2 RADEX 31558 [place] ALEIDA SPINE 1 4 MEDICAL FRA VIEW SERV SPECIFY FOUNDATIO LEVEL N RADEX 78088 [place] THIAGO SAYRA SPINE 1 4 MEDICAL VIEW SERV SPECIFY FOUNDATIO LEVEL N RADEX 57482 [place] THIAGO SAYRA SPINE 4 MEDICAL CERVICAL SERV 2 OR 3 FOUNDATIO VIEWS N SBSQ 17666 [facility] 4 MEDICAL ANT CARE/DAY SERV [address] [place] [address] [place] AYOOB AND ABDOMEN & 4 MEDICAL PELVIS SERV [place] [address] [place] DONNIE ABDOMINAL 4 MEDICAL HERBIE REAL SERV TIME FOUNDATIO W/IMAGE N LIMITED AMB [id number] AIR AIR SERVICE 4 METHODS METHODS [facility] AIR SRVC TRANSPORT [address] INITIAL 59650 [facility] 4 MEDICAL LISSETTE CARE/DAY SERV [address] LUMBAR 49547 [place] AYOOB AND SPINE 4 MEDICAL W/O SERV CONTRAST FOUNDATIO MATERIAL N MRI 02809 [place] FLORIN ELBERT SPINAL 4 MEDICAL CANAL SERV CERVICAL FOUNDATIO W/O N CONTRAST MATRL RADIOLOGI 82593 [place] MONTGOMER C 4 MEDICAL Y JUS EXAMINATI SERV ON PELVIS FOUNDATIO 1/2 N VIEWS RADIOLOGI 21528 [place] MONTGOMER C 4 MEDICAL Y JUS EXAMINATI SERV ON TIBIA FOUNDATIO & FIBULA N 2 VIEWS ECHO 50179 [place] DONNIE TRANSTHOR 4 MEDICAL HERBIE C R-T 2D SERV W/WO FOUNDATIO M-MODE N REC F-UP/[place] [address] [place] SULY ANGIOGRAP 4 MEDICAL MARIAH HY HEAD SERV W/CONTRAS FOUNDATIO T/NONCONT N RAST RADIOLOGI 97809 [place] MONTGOMER C 4 MEDICAL Y JUS EXAMINATI SERV ON FEMUR FOUNDATIO 2 VIEWS N RADEX 00162 [place] MONTG[place] ANKLE 4 MEDICAL Y JUS COMPLETE SERV MINIMUM 3 FOUNDATIO VIEWS N RADEX 04671 [place] FOOT 4 MEDICAL Y JUS COMPLETE SERV MINIMUM 3 FOUNDATIO VIEWS N RADEX 28685 [place] MONTG[place] ELBOW 4 MEDICAL Y JUS COMPLETE SERV MINIMUM 3 FOUNDATIO VIEWS N RADEX 74490 [place] MONTG[place] HAND 4 MEDICAL Y JUS MINIMUM [address] [place] [address] [place] AYOOB AND THORACIC 4 MEDICAL SPINE W/O SERV CONTRAST FOUNDATIO MATERIAL N RADIOLOGI 47274 [place] MONTGOMER C 4 MEDICAL Y JUS EXAMINATI SERV ON CHEST FOUNDATIO SINGLE N VIEW FRONTAL RADIOLOGI 06104 [place] MONTGOMER C 4 MEDICAL Y JUS EXAMINATI SERV ON KNEE 3 FOUNDATIO VIEWS N US CHEST 93029 [place] DONNIE REAL TIME 4 MEDICAL HERBIE W/IMAGE SERV DOCUMENTA FOUNDATIO TION N RADEX 56470 [place] HUMERUS 4 MEDICAL Y JUS MINIMUM 2 SERV VIEWS FOUNDATIO N RADEX 27431 [place] FOREARM 2 4 MEDICAL Y JUS VIEWS SERV FOUNDATIO N RADEX 68023 [place] MONTG[place] WRIST 4 MEDICAL Y JUS COMPLETE SERV MINIMUM [address] [place] [address] [place] ANGIOGRAP 4 MEDICAL MARIAH HY NECK SERV W/CONTRAS [place]OUNDAT[place] T/[place] [address] [place] AYOOB AND ANGIOGRAP 4 MEDICAL HY CHEST SERV W/CONTRAS [place]OUNDAT[place] T/[place] [address] [place] AYOOB AND CERVICAL 4 MEDICAL SPINE W/O SERV CONTRAST FOUNDATIO MATERIAL N REMOVAL 88386 MANJIT SARAVIA NON-BIODE 4 PILLO PILLO GRADABLE DRUG DELIVERY IMPLANT TDAP 76318 [facility] VACCINE 7 4 [facility] YRS/> IM HLTH DEPT HLTH DEPT [facility] IADNA 80374 [facility] NEISSERIA [facility] HLTH DEPT HLTH DEPT GONORRHOE [facility] AE AMPLIFIED PROBE TQ CYTP 73869 [facility] CERV/VAG 4 [facility] AUTO THIN HLTH DEPT HLTH DEPT LAYER [facility] [facility] PREP MNL SCREEN IADNA 61187 [facility] CHLAMYDIA 4 [facility] HLTH DEPT HLTH DEPT TRACHOMAT [facility] IS AMPLIFIED PROBE TQ CONTRACEP J7303 [facility] T SUPPLY 4 [facility] HORMONE HLTH DEPT HLTH DEPT CONTAININ LUPE LUPE G VAG RING EA IAADIADOO 40817 FIELD AMB FIELD AMB 4 STREPTOCO CCUS GROUP A ETONOGEST J7307 MANJIT SARAVIA REL 4 PILLO PILLO CNTRACPT IMPL SYS INCL IMPL & SPL INSJ 95622 MANJIT SARAVIA NON-BIODE 4 PILLO PILLO GRADABLE DRUG DELIVERY IMPLANT URINE 74718 MANJIT SARAVIA 4 PILLO PILLO TEST VISUAL COLOR CMPRSN METHS NEURAXIAL 17607 NIRMAL KINNEY LABOR 3 ELSA ELSA ANALG/ANE S PLND [place]AGIN[place]IV[place] RE[place] OF 7569 [facility] OTHER 3 [facility] CURRENT INC INC OBSTETRIC LACERATIO N VAGINAL 03280 MANJIT SARAVIA DELIVERY 3 PILL[place] PILLO ONLY W/POSTPAR ALLAN CARE 85393 MANJIT SARAVIA NONSTRESS 3 P[place]O PILLO TEST 97314 MANJIT SARAVIA NONSTRESS 3 PILLO PILLO TEST 61784 [facility] NONSTRESS 3 [facility] TEST INC INC CUL BACT 75041 COMBINED COMBINED XCPT 3 PHYSICIAN PHYSICIAN URINE S LA S LA BLOOD/STO OL AEROBIC ISOL 83689 HARPEL HARPEL NONSTRESS 3 GREOGR GREGOR TEST 71961 SARAVIA SARAVIA NONSTRESS 3 [facility] TEST HOSPITAL G0378 [facility] OBSERVATI 3 [facility] ON INC INC SERVICE PER HOUR INITIAL 22559 MANJIT SARAVIA OBSERVATI 3 PILLO PILLO ON CARE/DAY 70 MINUTES FTL 94989 [facility] FIBRONECT 3 [facility] IN INC INC CERVICOVA G SECRETION S SEMI-MICHELE URNLS DIP 21262 [facility]AN 3 [facility] STICK/TAB INC [place] [address] [facility] INFUSION 3 [facility] THERAPY/P INC INC ROPHYLAXI S /DX 1ST TO 1 HR INITIAL 34674 SARAVIA MANJIT OBSERVATI 3 PILLO PILLO ON CARE/DAY 50 MINUTES EVAL C/V 71755 [facility] AMNIOTIC 3 [facility] FLUID INC INC PROTEIN QUAL EA SPECIMEN 47059 [facility] NONSTRESS 3 [facility] TEST INC INC [place] PREG 90833 [facility] UTERUS 3 [facility] REAL TIME INC INC W/IMAGE DCMTN TRANSVAG 74759 SARAVIA SARAVIA NONSTRESS 3 PILLO PILLO TEST URNLS DIP 03591 [facility]AN 3 [facility] STICK/TAB INC INC LET RGNT NON-AUTO W/O MICRSCP GLUCOSE 29836 [facility] TOLERANCE 3 [facility] TEST GTT INC INC 3 SPECIMENS GLUCOSE 82639 [facility] TOLERANCE 3 [facility] EA ADDL INC INC BEYOND 3 SPECIMENS GLUCOSE 49554 [facility] TOLERANCE 3 HEALTH PILLO TEST GTT CLINIC OF 3 LISSETTE SPECIMENS 77407 [facility] NONSTRESS 3 HEALTH PILLO TEST CLINIC [place] 51017 MANJIT SARAVIA UTERUS 3 PILLO PILLO AFTER 1ST TRIMEST 1/ GESTATION US PREG 85088 WOMEN'S SARAVIA UTERUS 3 HEALTH PILLO REAL TIME CLINIC OF W/IMAGE LISSETTE DCMTN TRANSVAG ANTIBODY 63342 COMBINED COMBINED CHLAMYDIA 3 PHYSICIAN PHYSICIAN S LA S LA CUL BACT 28685 COMBINED COMBINED XCPT 3 PHYSICIAN PHYSICIAN URINE S LA S LA BLOOD/STO OL AEROBIC ISOL CULTURE 22757 [facility] BACTERIAL 3 [facility] INC INC QUANTTATI VE COLONY COUNT URINE CULTURE 91043 [facility] BCT 3 [facility] ISOL&PRSM INC INC PTV ID ISOLATE EA URINE URINE 01393 [facility]AN 3 [facility] TEST INC INC VISUAL COLOR CMPRSN METHS URNLS DIP 89274 [facility] 3 [facility] STICK/TAB INC INC LET REAGENT AUTO MICROSCOP Y SUSCEPTIB 75582 [facility] LTY STDY 3 [facility] ANTIMICRB INC INC IAL MICRO/AGA R DILUTJ IAADIADOO 68805 FREDERICK MACK 1 DON DON STREPTOCO CCUS GROUP A CONTRACEP S4993 [facility] TIVE 1 [facility] CONTROL COMPRE 86507 MEREDITH HARPER AUDIOMETR 1 JACQUE JACQUE Y THRESHOLD EVAL SP RECOGNIJ TYMPANOME 36965 MEREDITH HERNANDEZER TRY 1 [place] [address] [facility] INFUSION 1 [facility] THERAPY INC INC PROPHYLAX IS/DX EA HOUR TONSILLEC 80891 [facility] JENNIFER 1 [facility] PRIMARY/S INC INC ECONDARY AGE 12/> LEVEL III 83083 [place] SURG 1 NANCI & ALEISHA PATHOLOGY DUBILIER GROSS&MONICA ROSCOPIC EXAM ANESTHESI 56140 COMMUNITY PHAN SHIRLEY A 1 ANESTH INTRAORAL OF THE WITH BLUE BIOPSY NOS TONSILLEC 282 [facility] JENNIFER 1 [facility] WITHOUT INC INC ADENOIDEC JENNIFER GONADOTRO 58771 [facility] PIN 1 [facility] CHORIONIC INC INC QUALITATI VE BLOOD 82487 [facility] COUNT 1 [facility] HEMOGLOBI INC INC N BLOOD 39823 [facility] COUNT 1 [facility] HEMATOCRI INC INC T IAADIADOO 63220 FREDERICK JINHENS 1 DON DON STREPTOCO CCUS GROUP A IAADIADOO 54442 MACK MACK 1 DON DON STREPTOCO CCUS GROUP A CONTRACEP S4993 [facility] TIVE 1 [facility] CONTROL IADNA 39199 [facility] NEISSERIA 1 [facility] CENTER GONORRHOE AE AMPLIFIED PROBE TQ URINE 65908 [facility] 1 [facility] VISUAL COLOR CMPRSN METHS IADNA 50502 [facility] CHLAMYDIA 1 [facility] CENTER TRACHOMAT IS AMPLIFIED PROBE TQ OPHTH 69539 HOLLY CABALLERO MEDICAL 0 VISION ANG XM&EVAL COMPRE NEW PT 1/> VST FITTING 06564 [facility] CABALLERO SPECTACLE 0 VISION ANG S XCPT APHAKIA MONOFOCAL SPHERE V2100 [facility] CABALLERO SINGLE 0 VISION ANG VISION PLANO +/- 4.00 PER LENS FRAMES V2020 [facility] CABALLERO PURCHASES 0 VISION ANG THER 70569 TRESSA BUSTILLOS PROPH/DX 0 ELMER ELMER NJX IV PUSH SINGLE/1S T SBST/DRUG DEEP D9220 TRESSA BUSTILLOS SEDATION/ 0 ELMER ELMER GENERAL ANESTHESI A-1ST 30 MINUTES ANESTHESI 74471 TRESSA BUSTILLOS A 0 ELMER ELMER EXTERNAL MIDDLE & INNER EAR W/BX NOS IAADIADOO 62706 MACK, MACK, 0 DON R DON R STREPTOCO CCUS GROUP A DEEP D9220 TRESSA BUSTILLOS SEDATION/ 0 , JUAN MARTINEZ GENERAL W W ANESTHESI A-1ST 30 MINUTES THER 47756 TRESSA BUSTILLOS PROPH/DX 0 , JUAN MARTINEZ NJX IV W W PUSH SINGLE/1S T SBST/DRUG ORTHOPANT 21208 TRESSA BUSTILLOS OGRAM 0 , JUAN MARTINEZ W W CONTRACEP S4993 [facility] TIVE 0 [facility] [email or web address] [facility] Encounters Encounter Start End Date Code Location Performer Type Date OFFICE 81907 Christine CHEEK 7 7 NARESH DOMÍNGUEZ T VISIT [facility] 15 MINUTES [facility] - 6 6 [facility] OUTPATIEN [facility] T EMERGENCY 58772 MARCUS PEÑA 6 6 PHYSICIAN Biju GARZA S, [facility] T VISIT MODERATE SEVERITY EMERGENCY 84034 [facility] 6 6 [facility] T VISIT LIMITED/M INOR PROB OFFICE 64948 [facility] LEONEL CHEEK 6 6 PHYSICIAN STALIN T VISIT S GROUP 10 MINUTES OFFICE 30839 [facility] LEONEL CHEEK 6 6 PHYSICIAN STALIN T NEW 10 S GROUP MINUTES HOSPITAL L[facility]HER - 6 6 [facility] T EMERGENCY 97580 MARCUS LAZO 6 6 PHYSICIAN SAYRA GARZA , [facility] T VISIT MODERATE SEVERITY EMERGENCY 97378 [facility] 6 6 [facility] T VISIT LOW/MODER SEVERITY HOSPITAL [facility] - 6 6 [facility] INPATIENT [facility] LUTHER - 6 6 [facility] T OFFICE 47902 [facility] MANJIT AUGUSTINEN 6 6 PHYSICIAN T VISIT S GROUP 15 MINUTES OFFICE 70442 [facility] MANJIT AUGUSTINEN 6 6 PHYSICIAN T VISIT S GROUP 15 MINUTES OFFICE 55228 [facility] MANJIT AUGUSTINEN 6 6 PHYSICIAN PILLO T VISIT S GROUP 15 MINUTES HOSPITAL [facility] - 6 6 [facility] OUTPATIEN [facility] L[facility]HER - 6 6 [facility]PATIEN [facility] LUTHER - 6 6 [facility] OUTPATIEN [facility] T OFFICE 28314 [facility] SARAVIA OUTPATIEN 6 6 PHYSICIAN PILLO T VISIT S GROUP 15 MINUTES HOSPITAL L[facility]HER - 6 6 [facility] OUTPATIEN INC T OFFICE 15453 [facility] SARAVIA OUTPATIEN 6 6 PHYSICIAN PILLO T VISIT S GROUP 15 MINUTES [facility] LUTHER - 6 6 [facility] OUTPATIEN [facility] LUTHER - 5 5 [facility] OUTPATIEN INC T OFFICE 41521 A Vega CASTAÑEDA OUTPATIEN 5 5 NARESH DOMÍNGUEZ T VISIT PSC 15 MINUTES [facility] LUTHER - 5 5 [facility] OUTPATIEN [facility] LUTHER - 5 5 [facility] OUTPATIEN [facility] T OFFICE 08111 [facility] MANJIT OUTALEAHEN 5 5 PHYSICIAN PILLO T VISIT S GROUP 15 MINUTES OFFICE 14479 A Vega CASTAÑEDA OUTPATIEN 5 5 NARESH DOMÍNGUEZ T VISIT PSC 15 MINUTES HOSPITAL [facility]HER - 5 5 [facility] OUTPATIEN [facility] T OFFICE 66412 [facility] MANJIT AUGUSTINEN 5 5 PHYSICIAN PILLO T VISIT S GROUP 15 MINUTES OFFICE 18624 A [facility]ega CASTAÑEDA OUTPATIEN 5 5 NARESH DOMÍNGUEZ T VISIT PSC 15 MINUTES HOSPITAL [facility] - 5 5 [facility] OUTPATIEN INC T OFFICE 06359 A [facility] CASTAÑ[place] OUTPATIEN 5 5 NARESH DOMÍNGUEZ T VISIT PSC 15 MINUTES EMERGENCY 71335 MARCUS TRINIDAD 5 5 PHYSICIAN DEPARTMEN S, PLLC T VISIT MODERATE SEVERITY OFFICE 62798 [facility] MANJIT CHEEK 5 5 PHYSICIAN PILLO T VISIT S GROUP 15 MINUTES OFFICE 31311 A [facility]ega CASTAÑEDA OUTPATIEN 5 5 NARESH DOMÍNGUEZ T VISIT PSC 15 MINUTES OFFICE 77827 A Vega PAZ MADDY OUTPATIEN 5 5 NARESH DOMÍNGUEZ T VISIT PSC 15 MINUTES HOSPITAL [facility] - 5 5 [facility] OUTPATIEN INC T OFFICE 07117 A [facility]ega PAZ MADDY OUTPATIEN 5 5 NARESH DOMÍNGUEZ T VISIT PSC 15 MINUTES OFFICE 01993 A [facility]ega PAZ MADDY OUTPATIEN 5 5 NARESH DOMÍNGUEZ T VISIT PSC 15 MINUTES OFFICE 07989 A Vega PAZ MADDY OUTPATIEN 5 5 NARESH DOMÍNGUEZ T VISIT PSC 15 MINUTES OFFICE 43548 [facility] PETTEY OUTPATIEN 5 5 PHYSICIAN KRYSTA Lopez NEW 30 S GROUP MINUTES OFFICE 79446 A [facility]ega PAZ MADDY OUTPATIEN 5 5 NARESH DOMÍNGUEZ T VISIT PSC 15 MINUTES OFFICE 27153 A Vega FENTONPATIEN 5 5 NARESH EVANS T VISIT PSC 15 MINUTES OFFICE 44854 A [facility]ega CASTAÑEDA OUTPATIEN 5 5 NARESH DOMÍNGUEZ T VISIT PSC 15 MINUTES OFFICE 77398 A [facility]ega CASTAÑEDA OUTPATIEN 5 5 NARESH DOMÍNGUEZ T VISIT PSC 15 MINUTES OFFICE 31294 A Vega PAZ MADDY OUTPATIEN 5 5 NARESH DOMÍNGUEZ T VISIT PSC 15 MINUTES HOSPITAL UNIVERSIT - 5 5 Y OUTPATI HOSPITAL T OFFICE 06758 [facility] OUTPATIEN 5 5 Y T VISIT 5 HOSPITAL MINUTES OFFICE 47361 [facility] IMKY OUTPATIEN 5 5 NURSE T VISIT PRACTITIO 40 NER GR MINUTES HOSPITAL L[facility] - 5 5 [facility] OUTPATIEN INC T OFFICE 63816 A Vega PAZ MADDY OUTPATIEN 5 5 NARESH DOMÍNGUEZ T VISIT PSC 25 MINUTES HOSPITAL L[facility]HER - 5 5 [facility] OUTPATIEN INC T OFFICE 36749 Christine CASTAÑ[facility] 5 5 NARESH DOMÍNGUEZ T VISIT [facility] 15 MINUTES [facility] T OFF[facility] 35478 [facility] 5 5 Y T VISIT 5 HOSPITAL MINUTES OFFICE 59056 NOHEMI SMITH [facility] 5 5 MEDICAL GRE T VISIT SERV 15 FOUNDATIO MINUTES N OFFICE 18996 NOHEMI EPPERSONMEHDI OUTPATIEN 5 5 MEDICAL BRETT T VISIT SERV 15 FOUNDATIO MINUTES N OFFICE 41128 [facility] 5 5 Y T VISIT 5 [facility] 58442 [facility] 5 5 MEDICAL DEPARTMEN SERV T VISIT FOUNDATIO MODERATE N SEVERITY EMERGENCY 16343 UN[facility]ERSIT 5 5 Y [facility] T VISIT HIGH/URGE NT SEVERITY HOSPITAL UN[facility]ERSIT - 5 5 Y [facility] T OFFICE 21734 [facility] T VISIT HOSPITAL 15 MINUTES [facility]OSPITAL [facility] T OFFICE 29239 Christine [facility]STAÑ[facility] 5 5 NARESH DOMÍNGUEZ T VISIT PSC 15 MINUTES OFFICE 31071 [facility] SANT[facility]Z [facility] 4 4 MEDICAL SRI T VISIT SERV 15 FOUNDATIO MINUTES N HOSPITAL UNIVERSIT - 4 4 Y [facility] T HOSPITAL CARDINAL - 4 4 [place] [facility] EMERGENC[facility] 78905 NOHEMI FIELDS DEPT 4 4 MEDICAL HERBIE VISIT SERV HIGH FOUNDATIO SEVERITY& N THREAT FUNCJ OFFICE 09668 [facility] DEPT HLTH DEPT 10 LUPE LUPE MINUTES OFFICE 01040 MANJIT SARAVIA CONSULTAT 4 4 P[place]O PILL[place] ION NEW/ESTAB PATIENT 40 MIN PERIODIC 65203 [facility] PRE[facility] 4 4 [facility] E MED EST HLTH DEPT HLTH DEPT PATIENT LUPE LUPE 18-39 YRS OFFICE 85085 FIELD AMB FIELD AMB OUTPATIEN 4 4 T VISIT 15 MINUTES OFFICE 04251 FIELD AMB FIELD AMB OUTPATIEN 4 4 T VISIT 15 MINUTES OFFICE 24022 MANJIT SARAVIA OUTPATIEN 4 4 [place] T VISIT 15 MINUTES HOSPITAL L[facility] - 3 3 [facility] INPATIENT INC OFFICE 27051 MANJIT GREYE OUTPATIEN 3 3 [place] T VISIT 15 MINUTES OFFICE 59026 MANJIT GREYE OUTPATIEN 3 3 [facility] T VISIT 15 MINUTES [facility] T OFFICE 76802 [facility] SARAV[facility] OUTPATIEN 3 3 P[facility]O PILL[facility] T VISIT 15 MINUTES OFFICE 79969 [facility] OUTPATIEN 3 3 PILLO PILLO T VISIT 15 MINUTES OFFICE 32275 MANJIT GREYE OUTPATIEN 3 3 PILLO PILLO T VISIT 15 MINUTES OFFICE 23130 HARPEL HARPEL OUTPATIEN 3 3 GREGOR GREGOR T VISIT 15 MINUTES OFFICE 71168 [facility] OUTPATIEN 3 3 [facility] T VISIT 15 MINUTES [facility] T OFFICE 93753 [facility] OUTPATIEN 3 3 PILLO PILLO T VISIT 15 MINUTES OFFICE 97421 [facility] OUTPATIEN 3 3 PILLO PILLO T VISIT 15 MINUTES OFFICE 95937 FIELD AMB FIELD AMB OUTPATIEN 3 3 T VISIT 15 MINUTES OFFICE 45941 [facility] OUTPATIEN 3 3 [facility] T VISIT 15 MINUTES [facility] T OFFICE 47484 [facility] OUTPATI[facility] 3 3 [facility] T [facility]ISIT 5 CLINIC OF MINUTES LISSETTE OFFICE 07478 FIELD AMB FIELD AMB OUTPATIEN 3 3 T VISIT 15 MINUTES OFFICE 19646 [facility] OUTPATIEN 3 3 PILLO PILLO T VISIT 15 MINUTES OFFICE 08980 [facility]IA OUTPATIEN 3 3 P[facility]O PILLO T VISIT 15 MINUTES OFFICE 50288 [facility] OUTPATIEN 3 3 [facility] P[facility] T VISIT 15 MINUTES OFFICE 81804 [facility] 3 3 [facility] T VISIT CLINIC OF 15 [facility]SETTE MINUTES [facility] T EMERGENCY 82761 [facility] DE[facility] T VISIT LOW/MODER SEVERITY EMERGENCY 26983 TAPAN STOUT 3 3 EMERGENCY JAM DEPARTMEN SERVICES T VISIT HIGH/URGE NT SEVERITY OFFICE 75237 MACK MACK OUTPATIEN 1 1 DON DON T VISIT 15 MINUTES OFFICE 34792 MACK MACK OUTPATIEN 1 1 DON DON T VISIT 15 MINUTES OFFICE 36419 [facility] OUTPATIEN 1 1 [facility] CENTER 10 MINUTES OFFICE 30427 MACK MACK OUTPATIEN 1 1 DON DON T VISIT 15 MINUTES [facility] T EMERGENCY 10431 TAPAN LAN 1 1 EMERGENCY [facility] DEPARTMEN SERVICES T VISIT HIGH/URGE NT SEVERITY EMERGENCY 01582 [facility] 1 1 [facility] DEPART[facility] T VISIT LOW/MODER SEVERITY [facility] OUT[facility] T OFFICE 66799 LEONEL CASTANEDA OUTPATIEN 1 1 [facility] STAL[facility] T NEW 45 MINUTES OFFICE 75889 FREDER[facility] VAILS OUTPATIEN 1 1 DON DON T VISIT 15 MINUTES OFFICE 82062 FREDERICK MACK OUTPATIEN 1 1 DON DON T VISIT 15 MINUTES PERIODIC 42830 [facility] PREVENTIV 1 1 [facility] CENTER PATIENT 12-17YRS OFFICE 49933 FREDERICK MACK, OUTPATIEN 0 0 DON R DON R T VISIT 15 MINUTES OFFICE 57154 FREDERICK MACK, OUTPATIEN 0 0 DON R DON R T VISIT 15 MINUTES OFFICE 75905 TRESSA BUSTILLOS OUTPATIEN 0 0 , JUAN MARTINEZ 10 W W MINUTES OFFICE 97841 [facility]ER[facility] MACK OUTPATIEN 0 0 DON R DON R T VISIT 15 MINUTES OFFICE 17637 [facility] S[facility] OUTPATIEN 0 0 [facility] VISIT C[facility] CENTER 10 MINUTES
--- OUTSIDE RECORDS SUMMARY | 2016-11-28 04:38 | External Medical Summary Rpt ---
Demographics Preferred Language Mongolian Marital Status Unknown Uatsdin Affiliation Unknown Race Unknown Ethnic Group Unknown Author Author , Organization [facility] Address Unknown Phone Unavailable Purpose Continuity of Care Document - through 2016 Immunization No patient found.
--- OUTSIDE RECORDS SUMMARY | 2016-11-28 04:38 | External Medical Summary Rpt ---
Demographics Preferred Language Cuban Marital Status Unknown Episcopalian Affiliation Unknown Race Unknown Ethnic Group Unknown Author Author , Organization [employer] Address Unknown Phone Unavailable Purpose Continuity of Care Document - through 2016 Immunization No patient found.
--- OUTSIDE RECORDS SUMMARY | 2016-11-28 04:39 | External Medical Summary Rpt ---
Author Author SUSANA Al, [employer] Address Unknown Phone Unavailable [...] accorda nce with the [employer] ce [facility] lity and Account ability Act. CHLAMY[employer]IA [employer] GON[employer]RHEA TESTING Observa Value Referen Units Interpr Notes Date tion ce etation Range COLLECT M No No No No Mar 11 OR [employer] informa informa informa informa 2014 CASINO MANAGER tion in tion in tion in tion [...] OR [employer] informa informa informa informa 2014 CASINO MANAGER tion in tion in tion in tion [...]
--- OUTSIDE RECORDS SUMMARY | 2016-11-28 04:39 | External Medical Summary Rpt ---
Author Author SUSANA Al, SUSANA [employer] Address Unknown Phone Unavailable [...] accorda nce with the [employer] ce [facility] lity and Account ability Act. CHLAMYDIA AND GONORRHEA TESTING Observa Value Referen Units Interpr Notes Date tion ce etation Range COLLECT M No No No No Mar 11 [place] [employer] informa informa informa informa 2014 SALVAGE WINDER tion in tion in tion in tion [...] OR [employer] informa informa informa informa 2014 SALVAGE WINDER tion in tion in tion in tion [...]
== END 2016-11-27 12:23 | disposition home or self-care (01) ==
LOC: ER 09:40
PROVIDERS: General Practice
DX: N30.90 Cystitis, unspecified without hematuria (principal); R10.31 Right lower quadrant pain
CPT/HCPCS: J2405